=== PATIENT | male | born 1960 | race African-American/Black ===

== ENCOUNTER 2019-01-07 13:40 | Emergency (ER) | payer OTHER ==
--- NOTE | 2019-01-07 14:22 | RAD REPORT ---
EXAM DESCRIPTION: RAD - Shoulder Left 2 View - 01/07/2019 2:16 pm CLINICAL HISTORY: PAIN COMPARISON: No comparisons FINDINGS: Mild AC joint degenerative changes are present. No acute fracture or dislocation seen. Otoniel cifications are seen along the distal aspect of the supraspinatus tendon compatible with calcific ten dinitis. IMPRESSION: Calcific tendinitis.
[2019-01-07] MEDS ORDERED: KETOROLAC 30 MG/ML INJ ONE (15:52)
[2019-01-07] MEDS ORDERED: FAMOTIDINE 20 MG TAB ONE (15:52)
[2019-01-07] MEDS ORDERED: HYDROCODONE/APAP 10/325 TAB ONE (15:52)
[2019-01-07] MEDS ORDERED: ONDANSETRON 4 MG (ODT) TAB ONE (16:56)
[2019-01-07] MEDS ORDERED: MORPHINE 4 MG/ML SYR ONE (16:56)
[2019-01-07] MEDS ORDERED: LORazepam 2 MG/ML VIAL ONE (19:21)
--- NOTE | 2019-01-07 20:13 | RAD REPORT ---
EXAM DESCRIPTION: MRI - Shoulder Left Wo Cont - 01/07/2019 7:59 pm CLINICAL HISTORY: Severe shoulder pain, no precipitating event COMPARISON: Left shoulder films same date. TECHNIQUE: Axial PF fat sat, paracoronal PD FS, T1 weighted and T2 weighted sequences obtained. Para sagittal T2 FS and PD FS also obtained. FINDINGS: Exam has limitation due to motion. Multiple sequences were repeated due to motion. No occult fracture, bone bruise or marrow replacing process. Patient has a mixed red and yellow marro w pattern in the proximal humerus. No AVN. AC joint degenerative changes are present. There is edema in the joint space and mild edema in the acromion. No inferiorly directed bone spur. No biceps tendon injury seen. Small anterior labrum tear is evident. Detail is limited due to motion. Patient has additional underlying labrum degenerative signal. Small amount of fluid is present in the subacromion-subdeltoid bursa. Subscapularis and infraspinatus tendons are intact. Calcifications are present in the supraspinatus t endon along the anterior leading edge. There is heterogeneous signal throughout the tendon. No muscle belly atrophy or tendon retraction. Prominent degenerative/tendinitis changes are present. There is probably a full-thickness tear along the anterior leading edge. No muscle mass or hematoma. No suspicion for septic joint or aggressive bone process. IMPRESSION: Prominent supraspinatus calcific tendinitis changes along with a suspected full-thicknes s tear along the anterior leading edge. Small anterior labrum tear. AC joint degenerative change without inferiorly directed spur. No suspicion for septic joint. No periarticular mass, hematoma or other significant soft tissue findi ng. Overall examination has significant limitation due to the extent of motion degradation.
[2019-01-07] MEDS ORDERED: HYDROCODONE/APAP 5/325 MG TAB ONE (21:00)
--- NOTE | 2019-01-07 21:37 | ER ---
Nurse's Notes [facility] Name: Reji Wallace Age: 58 yrs Sex: Male : 1960 Arrival Date: 01/07/2019 Time: 13:41 Bed 10 Private MD: Anshu Herrera Diagnosis: Other specific joint derangements of left shoulder, not elsewhere classified Presentation: 01/07 13:49 Presenting complaint: Patient states: left shoulder pain since Thursday. Pt had Dr ignacio Eaton call him in some Baclofen but it has not helped with the pain. Transition of care: patient was not received from another setting of care. Onset of symptoms was January 01, 2019. Care prior to arrival: None. 13:49 Method Of Arrival: Ambulatory sv 13:49 Acuity: ARIA 4 sv 16:18 Risk Assessment: Do you want to hurt yourself or someone else? Patient reports no dm5 desire to harm self or others. Initial Sepsis Screen: Does the patient meet any 2 criteria? No. Patient's initial sepsis screen is negative. Does the patient have a suspected source of infection? No. Patient's initial sepsis screen is negative. Triage Assessment: 13:55 General: Appears in no apparent distress. uncomfortable, Behavior is calm, cooperative, sv appropriate for age. Pain: Complains of pain in anterior aspect of left shoulder and posterior aspect of left shoulder Pain currently is 10 out of 10 on a pain scale. Neuro: Level of Consciousness is awake, alert, obeys commands, Oriented to person, place, time, situation, Gait is steady. Respiratory: Respiratory effort is even, unlabored, Respiratory pattern is regular, symmetrical. Historical: - Allergies: 13:52 No Known Drug Allergies; sv - PMHx: 13:52 Diabetes - NIDDM; High Cholesterol; Hypertension; Prostate Cancer; sv - PSHx: 13:52 None; sv - Immunization history:: Adult Immunizations up to date. - Social history:: Smoking status: Patient/guardian denies using tobacco. - Ebola Screening: : Patient negative for fever greater than or equal to 101.5 degrees Fahrenheit, and additional compatible Ebola Virus Disease symptoms Patient denies exposure to infectious person Patient denies travel to an Ebola-affected area in the 21 days before illness onset. Screenin:15 Abuse screen: Denies threats or abuse. Denies injuries from another. Nutritional dm5 screening: No deficits noted. Tuberculosis screening: No symptoms or risk factors identified. Fall Risk None identified. Assessment: 15:15 General: Appears in no apparent distress. uncomfortable. Pain: Complains of pain in dm5 posterior aspect of left shoulder and anterior aspect of left shoulder. Neuro: Level of Consciousness is awake, alert, obeys commands, Oriented to person, place, time. Respiratory: Airway is patent Respiratory effort is even, unlabored, relaxed, Respiratory pattern is regular, symmetrical. Derm: Skin is pink, warm \T\ dry. 20:00 General: Appears in no apparent distress. Behavior is calm, cooperative, Reports pain bb in left shoulder. Neuro: Level of Consciousness is awake, alert, obeys commands, Oriented to person, place, time, situation. Cardiovascular: No deficits noted. Respiratory: Respiratory effort is even, unlabored, Respiratory pattern is regular. GI: No deficits noted. Derm: Skin is dry, Skin is normal, Skin temperature is warm. Musculoskeletal: Circulation, motion, and sensation intact. Reports pain in left shoulder. 20:52 Reassessment: Patient and/or family updated on plan of care and expected duration. Pain bb level reassessed. Patient is alert, oriented x 3, equal unlabored respirations, skin warm/dry/pink. pt states left shoulder is still painful pt medicated see DEC. 21:23 Reassessment: Patient and/or family updated on plan of care and expected duration. Pain bb level reassessed. Patient is alert, oriented x 3, equal unlabored respirations, skin warm/dry/pink. pt states he is ready to go home now. Patient states feeling better. 21:53 Reassessment: Patient and/or family updated on plan of care and expected duration. Pain bb level reassessed. Patient is alert, oriented x 3, equal unlabored respirations, skin warm/dry/pink. pt verbalized understanding of and agrees to plan of care discharge instructions given pt ambulated with steady gait to exit accompanied by family Patient states feeling better. Vital Signs: 13:52 BP 164 / 91; Pulse 106; Resp 20; Temp 98.2; Pulse Ox 97% ; Weight 124.74 kg; Height 5 sv ft. 10 in. (177.80 cm); Pain 10/10; 15:15 BP 160 / 89; Pulse 95; Resp 20; Temp 98; Pulse Ox 100% on R/A; Pain 9/10; dm5 17:50 BP 150 / 90; Pulse 90; Resp 18; Temp 98; Pulse Ox 98% ; dm5 20:21 BP 119 / 74; Pulse 80; Resp 14; Temp 97.9; Pulse Ox 99% on R/A; ag4 21:54 BP 135 / 88; Pulse 96; Resp 14 S; Pulse Ox 98% on R/A; Pain 3/10; bb 13:52 Body Mass Index 39.46 (124.74 kg, 177.80 cm) sv ED Course: 13:41 Patient arrived in ED. as 13:41 Anshu Herrera MD is Private Physician. as 13:44 Patient's name was called from ER lobby. No response. sv 13:52 Triage completed. sv 14:12 Shoulder Left (2 View) XRAY In Process Unspecified. EDMS 14:51 Jorden Mendoza MD is Attending Physician. kdr 15:01 Michelle Paiz, RN is Primary Nurse. dm5 15:15 Patient has correct armband on for positive identification. dm5 15:15 No provider procedures requiring assistance completed. Patient did not have IV access dm5 during this emergency room visit. 16:18 Arm band placed on. dm5 19:06 Attending Physician role handed off by Jorden Mendoza MD gs 19:06 Mohamud Horan MD is Attending Physician. gs 19:10 Inserted saline lock: 24 gauge in right forearm, using aseptic technique. ,using tw2 aseptic technique. by Tech. Keshia 19:28 Shoulder Left Wo Cont In Process Unspecified. EDMS 21:36 Chance Caballero MD is Referral Physician. gs Administered Medications: 15:45 Drug: TORadol 60 mg Route: IM; Site: right gluteus; dm5 16:15 Follow up: Response: No adverse reaction; Pain is decreased dm5 15:45 Drug: [place] 10 mg-325 mg 1 tabs Route: PO; dm5 16:15 Follow up: Response: No adverse reaction; Pain is decreased dm5 15:45 Drug: Pepcid 20 mg Route: PO; dm5 16:00 Follow up: Response: No adverse reaction; No change in condition dm5 16:49 Drug: morphine 4 mg Route: IM; Site: right deltoid; dm5 17:15 Follow up: Response: No adverse reaction; Pain is decreased dm5 16:50 Drug: Zofran 4 mg Route: PO; dm5 19:47 Follow up: Response: No adverse reaction; No change in condition dm5 19:14 Drug: Ativan 1 mg Route: IVP; Site: right forearm; tw2 20:11 Follow up: Response: No adverse reaction; Marked relief of symptoms bb 20:50 Drug: [place] 5 mg-325 mg 1 tabs Route: PO; bb 21:23 Follow up: Response: Pain is decreased bb Outcome: 21:37 Discharge ordered by MD. gs 21:54 Discharged to home ambulatory, with family. bb 21:54 Condition: stable 21:54 Discharge instructions given to patient, Instructed on discharge instructions, follow up and referral plans. no driving heavy equipment, medication usage, Demonstrated understanding of instructions, follow-up care, medications, Prescriptions given X 2. 21:55 Patient left the ED. bb Signatures: Dispatcher [employer] EDMS Michelle Paiz RN RN dm5 Sheafli Kemp RN RN sv Rittger, Kevin, MD MD kdr Martinez, Amelia as Ballard, Brenda, RN RN bb Wise, Tara, RN RN tw2 Mohamud Horan MD MD John Swann ag4 Corrections: (The following items were deleted from the chart) 13:49 13:44 Patient left the ED. [facility]
--- NOTE | 2019-01-07 21:37 | EDPHYS ---
Physician Documentation [facility] Name: Reji Wallace Age: 58 yrs Sex: Male : 1960 Arrival Date: 01/07/2019 Time: 13:41 Bed 10 Private MD: Anshu Herrera ED Physician Mohamud Horan HPI: 01/07 21:33 This 58 yrs old Black Male presents to ER via Ambulatory with complaints of Shoulder gs Pain. 21:34 The patient or guardian complains of pain, that is acute. left shoulder. Onset: The gs symptoms/episode began/occurred 1 week(s) ago, and became worse and became persistent. Modifying factors: The symptoms are aggravated by lifting weight, movement, rotation of arm. Associated signs and symptoms: Pertinent negatives: shortness of breath. Severity of symptoms: At their worst the symptoms were severe, in the emergency department the symptoms are unchanged. The patient has not experienced similar symptoms in the past. The patient has not recently seen a physician. Historical: - Allergies: 13:52 No Known Drug Allergies; sv - PMHx: 13:52 Diabetes - NIDDM; High Cholesterol; Hypertension; Prostate Cancer; sv - PSHx: 13:52 None; sv - Immunization history:: Adult Immunizations up to date. - Social history:: Smoking status: Patient/guardian denies using tobacco. - Ebola Screening: : Patient negative for fever greater than or equal to 101.5 degrees Fahrenheit, and additional compatible Ebola Virus Disease symptoms Patient denies exposure to infectious person Patient denies travel to an Ebola-affected area in the 21 days before illness onset. ROS: 21:34 All other systems are negative. gs Exam: 21:34 Chest/axilla: Normal chest wall appearance and motion. Nontender with no deformity. gs No lesions are appreciated. Cardiovascular: Regular rate and rhythm with a normal S1 and S2. No gallops, murmurs, or rubs. Normal PMI, no JVD. No pulse deficits. Respiratory: Lungs have equal breath sounds bilaterally, clear to auscultation and percussion. No rales, rhonchi or wheezes noted. No increased work of breathing, no retractions or nasal flaring. Abdomen/GI: Soft, non-tender, with normal bowel sounds. No distension or tympany. No guarding or rebound. No evidence of tenderness throughout. Back: No spinal tenderness. No costovertebral tenderness. Full range of motion. Skin: Warm, dry with normal turgor. Normal color with no rashes, no lesions, and no evidence of cellulitis. Neuro: Awake and alert, GCS 15, oriented to person, place, time, and situation. Cranial nerves II-XII grossly intact. Motor strength 5/5 in all extremities. Sensory grossly intact. Cerebellar exam normal. Normal gait. 21:34 Constitutional: The patient appears alert, awake, uncomfortable. 21:34 Musculoskeletal/extremity: Pulses: are normal with no appreciated deficits, Sensation intact. Joints: the left shoulder displays pain at rest, painful range of motion, swelling, tenderness. Vital Signs: 13:52 BP 164 / 91; Pulse 106; Resp 20; Temp 98.2; Pulse Ox 97% ; Weight 124.74 kg; Height 5 sv ft. 10 in. (177.80 cm); Pain 10/10; 15:15 BP 160 / 89; Pulse 95; Resp 20; Temp 98; Pulse Ox 100% on R/A; Pain 9/10; dm5 17:50 BP 150 / 90; Pulse 90; Resp 18; Temp 98; Pulse Ox 98% ; dm5 20:21 BP 119 / 74; Pulse 80; Resp 14; Temp 97.9; Pulse Ox 99% on R/A; ag4 21:54 BP 135 / 88; Pulse 96; Resp 14 S; Pulse Ox 98% on R/A; Pain 3/10; bb 13:52 Body Mass Index 39.46 (124.74 kg, 177.80 cm) sv MDM: 19:06 Patient medically screened. gs 21:34 Differential diagnosis: humeral head fracture, DJD, tendonitis. Data reviewed: vital gs signs, nurses notes. Data reviewed: radiologic studies. Counseling: I had a detailed discussion with the patient and/or guardian regarding: the historical points, exam findings, and any diagnostic results supporting the discharge/admit diagnosis, the need for outpatient follow up, a orthopedic surgeon. Response to treatment: the patient's symptoms have markedly improved after treatment, and as a result, I will discharge patient. 01/07 13:53 Order name: Shoulder Left (2 View) XRAY; Complete Time: 15:14 sv 01/07 16:39 Order name: Shoulder Left Wo Cont; Complete Time: 20:43 EDMS 01/07 21:53 Order name: Jason; Complete Time: 21:53 bb Administered Medications: 15:45 Drug: TORadol 60 mg Route: IM; Site: right gluteus; dm5 16:15 Follow up: Response: No adverse reaction; Pain is decreased dm5 15:45 Drug: [place] 10 mg-325 mg 1 tabs Route: PO; dm5 16:15 Follow up: Response: No adverse reaction; Pain is decreased dm5 15:45 Drug: Pepcid 20 mg Route: PO; dm5 16:00 Follow up: Response: No adverse reaction; No change in condition dm5 16:49 Drug: morphine 4 mg Route: IM; Site: right deltoid; dm5 17:15 Follow up: Response: No adverse reaction; Pain is decreased dm5 16:50 Drug: Zofran 4 mg Route: PO; dm5 19:47 Follow up: Response: No adverse reaction; No change in condition dm5 19:14 Drug: Ativan 1 mg Route: IVP; Site: right forearm; tw2 20:11 Follow up: Response: No adverse reaction; Marked relief of symptoms bb 20:50 Drug: [place] 5 mg-325 mg 1 tabs Route: PO; bb 21:23 Follow up: Response: Pain is decreased bb Disposition: 01/07/19 21:37 Discharged to Home. Impression: Other specific joint derangements of left shoulder, not elsewhere classified. - Condition is Stable. - Discharge Instructions: Surgery for Shoulder Impingement Syndrome, Care After. - Prescriptions for Naprosyn 500 mg Oral Tablet - take 1 tablet by ORAL route 2 times per day As needed take with food; 30 tablet. Tylenol- Codeine #4 300-60 mg Oral Tablet - take 1 tablet by ORAL route every 6 hours As needed; 12 tablet. - Medication Reconciliation Form, Thank You Letter, Antibiotic Education, Prescription Opioid Use form. - Follow up: Chance Caballero MD; When: 2 - 3 days; Reason: Re-evaluation by your physician. Signatures: Dispatcher [facility] Michelle Paiz RN RN dm5 Shefali Kemp RN RN sv Jorden Mendoza MD MD kdr Martina Steiner RN RN bb Latricia Nguyen RN RN tw2 Mohamud Horan MD MD Corrections: (The following items were deleted from the chart) 15:01 13:44 01/07/2019 13:44 Patient left the facility Before Triage. Reason stated they are dm5 leaving due to other. sv 21:55 21:37 01/07/2019 21:37 Discharged to Home. Impression: Other specific joint bb derangements of left shoulder, not elsewhere classified. Condition is Stable. Forms are Medication Reconciliation Form, Thank You Letter, Antibiotic Education, Prescription Opioid Use. Follow up: Dr. Chance Caballero; When: 2 - 3 days; Reason: Re-evaluation by your physician. gs
[2019-01-07 22:06] VITALS: TEMP 97.9
[2019-01-07 22:07] VITALS: BP 135/88; O2SAT 98
== END 2019-01-07 21:55 | disposition home or self-care (01) ==
LOC: ER 13:40
DX: M24.812 Other specific joint derangements of left shoulder, not elsewhere classified (principal); I10 Essential (primary) hypertension; Z85.46 Personal history of malignant neoplasm of prostate
CPT/HCPCS: 96372; 96374; 99284

== ENCOUNTER 2019-03-23 09:21 | Emergency (ER) | payer OTHER ==
[2019-03-23] MEDS ORDERED: NA CHLORIDE 0.9% 1,000 ML ONE (09:50)
[2019-03-23] MEDS ORDERED: ONDANSETRON 4 MG/2 ML VIAL ONE (09:50)
[2019-03-23 10:05] LABS: Absolute Lymphocytes (CBC) 0.4 K/uL (0.7-4.9); Absolute Monocytes 0.9 K/uL (0.1-1.3); Absolute Neutrophil 10.3 K/uL (1.8-8.0); Basophils % 0.2 % (0-1.3); Eosinophils % 0.1 % (0-4.4); Hematocrit 33.7 % (39.6-49.0); Lymphocytes % 3.7 % (15.3-44.8); MPV 7.3 fL (7.6-11.3); Monocytes % 7.4 % (3.3-12.3); RBC Red Blood Cell Count 4.33 M/uL (4.33-5.43)
[2019-03-23 10:42] LABS: Albumin 3.1 g/dL (3.4-5.0); Bilirubin Direct 0.2 mg/dL (0-0.2); Bilirubin Total 0.8 mg/dL (0.2-1.0); Potassium 3.5 mmol/L (3.5-5.1); Protein, Total 7.8 g/dL (6.4-8.2)
[2019-03-23] MEDS ORDERED: IBUPROFEN 400 MG TAB ONE (10:52)
[2019-03-23 11:03] LABS: Anisocytosis 1+; Blood Morphology Comment NOTED (NOT SEEN); Platelet Estimate ADEQ; Urine White Blood Cell Casts OK
--- NOTE | 2019-03-23 11:23 | RAD REPORT ---
EXAM DESCRIPTION: CTAbdomen Pelvis W Contrast - 03/23/2019 11:10 am CLINICAL HISTORY: Abdominal pain. iv contrast only;Abd pain COMPARISON: CT ABD PELVIS W CONTRAST dated 10/04/2015; CT ABD PELVIS W CONTRAST dated 05/16/2013 TECHNIQUE: Biphasic CT imaging of the abdomen and pelvis was performed with 100 ml non-ionic IV cont rast. All CT scans are performed using dose optimization technique as appropriate and may include automated exposure control or mA/KV adjustment according to patient size. FINDINGS: The lung bases are clear. The liver, spleen, pancreas, adrenal glands and kidneys are within normal limits. 17 mm medial left r enal cyst. No bowel obstruction, free air, free fluid or abscess. The appendix is normal. No evidence of signi ficant lymphadenopathy. Moderate lumbar degenerative changes. IMPRESSION: No acute intra-abdominal or pelvic finding.
--- NOTE | 2019-03-23 12:23 | ER ---
Nurse's Notes [facility] Name: Reji Wallace Age: 58 yrs Sex: Male : 1960 Arrival Date: 03/23/2019 Time: 09:24 Bed 16 Private MD: Anshu Herrera Diagnosis: Nausea and vomiting;Diarrhea, unspecified Presentation: 03/23 09:28 Presenting complaint: Patient states: Sent by Dr. Herrera for possible dehydration. Pt ss c/o N/V/D and fever that began yesterday. Denies abd pain. Transition of care: patient was not received from another setting of care. Onset of symptoms was March 22, 2019. Risk Assessment: Do you want to hurt yourself or someone else? Patient reports no desire to harm self or others. Initial Sepsis Screen: Does the patient meet any 2 criteria? HR > 90 bpm. Does the patient have a suspected source of infection? No. Patient's initial sepsis screen is negative. Care prior to arrival: None. 09:28 Method Of Arrival: Ambulatory ss 09:28 Acuity: ARIA 3 ss Historical: - Allergies: :34 No Known Drug Allergies; tw2 - Home Meds: :34 aspirin 81 mg Oral chew 1 tab once daily [Active]; Crestor 10 mg Oral tab 1 tab once tw2 daily [Active]; Decara Oral [Active]; Levemir 100 unit/mL subcutaneous soln 80 unit twice a day [Active]; Losartan potassium 50 mg 1 tab daily [Active]; metformin 500 mg Oral Tb24 1 tab twice a day [Active]; Viagra 100 mg Oral tab 1 tab once daily [Active]; Victoza 3-Julio 0.6 mg/0.1 mL (18 mg/3 mL) subcutaneous pnij 0.4 mL once daily [Active]; - PMHx: 09:34 Prostate Cancer; Hypertension; High Cholesterol; Diabetes - NIDDM; tw2 - PSHx: :34 None; tw2 - Immunization history:: Adult Immunizations. - Social history:: Smoking status: . - Ebola Screening: : Patient denies travel to an Ebola-affected area in the 21 days before illness onset. Screenin:33 Abuse screen: Denies threats or abuse. Nutritional screening: No deficits noted. tw2 Tuberculosis screening: No symptoms or risk factors identified. Fall Risk None identified. Assessment: 09:29 General: Appears in no apparent distress. obese, well groomed, Behavior is calm, tw2 cooperative, appropriate for age. Pain: Denies pain. Neuro: Level of Consciousness is awake, alert, obeys commands, Oriented to person, place, time, situation. Cardiovascular: Heart tones S1 S2 Patient's skin is warm and dry. Respiratory: Airway is patent Respiratory effort is even, unlabored, Respiratory pattern is regular, symmetrical, Breath sounds are clear bilaterally. GI: Abdomen is round non-distended, Bowel sounds present X 4 quads. Reports diarrhea, nausea, vomiting. : No signs and/or symptoms were reported regarding the genitourinary system. EENT: No signs and/or symptoms were reported regarding the EENT system. Derm: No signs and/or symptoms reported regarding the dermatologic system. Musculoskeletal: Range of motion: intact in all extremities. 10:15 Reassessment: Patient appears in no apparent distress at this time. No changes from tw2 previously documented assessment. Patient and/or family updated on plan of care and expected duration. Pain level reassessed. Patient is alert, oriented x 3, equal unlabored respirations, skin warm/dry/pink. 11:30 Reassessment: Patient appears in no apparent distress at this time. No changes from tw2 previously documented assessment. Patient and/or family updated on plan of care and expected duration. Pain level reassessed. Patient is alert, oriented x 3, equal unlabored respirations, skin warm/dry/pink. 12:29 Reassessment: Patient appears in no apparent distress at this time. No changes from tw2 previously documented assessment. Patient and/or family updated on plan of care and expected duration. Pain level reassessed. Patient is alert, oriented x 3, equal unlabored respirations, skin warm/dry/pink. Vital Signs: 09:28 BP 126 / 72; Pulse 124; Resp 19; Temp 99.9(O); Pulse Ox 95% on R/A; Weight 124.74 kg; ss Height 5 ft. 10 in. (177.80 cm); Pain 0/10; 10:15 BP 136 / 79; Pulse 121; Resp 17; Pulse Ox 95% on R/A; tw2 10:37 Temp 100.4(O); tw2 11:52 BP 118 / 75; Pulse 121; Resp 20; Temp 98.1(TE); Pulse Ox 95% on R/A; mh5 12:30 BP 103 / 57; Pulse 99; Resp 17; Pulse Ox 95% on R/A; tw2 09:28 Body Mass Index 39.46 (124.74 kg, 177.80 cm) ED Course: 09:24 Patient arrived in ED. mr 09:24 Anshu Herrera MD is Private Physician. mr 09:29 Mary Snowden FNP-C [facility]. kb 09:29 Syed Simpson MD is Attending Physician. kb 09:32 Latricia Nguyen, FE is Primary Nurse. tw2 09:33 Arm band placed on. tw2 09:33 Bed in low position. Call light in reach. Adult w/ patient. Pulse ox on. NIBP on. tw2 09:37 Triage completed. ss 09:45 Missed attempt(s): 22 gauge in left forearm. Bleeding controlled, band aid applied, tw2 catheter tip intact. Missed attempt(s): 22 gauge in left forearm. Bleeding controlled, band aid applied, catheter tip intact. 09:50 Inserted saline lock: 20 gauge in right antecubital area, using aseptic technique. tw2 Blood collected. 11:10 CT Abd/Pelvis - W/Contrast In Process Unspecified. EDMS 12:23 Anshu Herrera MD is Referral Physician. kb 12:30 No provider procedures requiring assistance completed. IV discontinued, intact, tw2 bleeding controlled, No redness/swelling at site. Pressure dressing applied. Administered Medications: 09:50 Drug: Zofran 4 mg Route: IVP; Site: right antecubital; tw2 11:00 Follow up: Response: No adverse reaction tw2 10:00 Drug: NS 0.9% 1000 ml Route: IV; Rate: 1000 ml; Site: right antecubital; tw2 10:50 Follow up: Response: No adverse reaction; IV Status: Completed infusion; IV Intake: tw2 1000ml 10:44 Drug: Motrin 800 mg Route: PO; tw2 11:00 Follow up: Response: No adverse reaction tw2 Intake: 10:50 IV: 1000ml; Total: 1000ml. tw2 Outcome: 12:23 Discharge ordered by . kb 12:31 Discharged to home ambulatory, with significant other. tw2 12:31 Condition: stable 12:31 Discharge instructions given to patient, significant other, Instructed on discharge instructions, follow up and referral plans. medication usage, Demonstrated understanding of instructions, follow-up care, medications, Prescriptions given X 1. 12:31 Patient left the ED. tw2 Signatures: Dispatcher [employer] EDAZ Mary Snowden, [employer]ON[employer]-Rachel Bere Bejarano Lor Goldman RN RN Latricia Nguyen RN RN 2 Judy Soriano [facility]
--- NOTE | 2019-03-23 12:23 | EDPHYS ---
Physician Documentation [facility] Name: Reji Wallace Age: 58 yrs Sex: Male : 1960 Arrival Date: 03/23/2019 Time: 09:24 Bed 16 Private MD: Anshu Herrera ED Physician Syed Simpson HPI: 03/23 11:28 This 58 yrs old Black Male presents to ER via Ambulatory with complaints of kb Vomiting/Diarrhea, Fever. 11:28 The patient presents to the emergency department with nausea, vomiting, diarrhea. kb Onset: The symptoms/episode began/occurred yesterday. Possible causes: unknown. The symptoms are aggravated by nothing. The symptoms are alleviated by nothing. Associated signs and symptoms: Pertinent positives: diarrhea, nausea, vomiting, Pertinent negatives: abdominal pain, anorexia, belching, constipation, dysuria, fever, flatulence, GI bleeding, hematuria. Severity of symptoms: At their worst the symptoms were moderate in the emergency department the symptoms are unchanged. The patient has not experienced similar symptoms in the past. The patient has been recently seen by a physician: the patient's primary care provider, earlier today, with similar presenting complaints, and was sent to the [facility] Emergency Department for further evaluation. Historical: - Allergies: 09:34 No Known Drug Allergies; tw2 - Home Meds: 09:34 aspirin 81 mg Oral chew 1 tab once daily [Active]; Crestor 10 mg Oral tab 1 tab once tw2 daily [Active]; Decara Oral [Active]; Levemir 100 unit/mL subcutaneous soln 80 unit twice a day [Active]; Losartan potassium 50 mg 1 tab daily [Active]; metformin 500 mg Oral Tb24 1 tab twice a day [Active]; Viagra 100 mg Oral tab 1 tab once daily [Active]; Victoza 3-Julio 0.6 mg/0.1 mL (18 mg/3 mL) subcutaneous pnij 0.4 mL once daily [Active]; - PMHx: 09:34 Prostate Cancer; Hypertension; High Cholesterol; Diabetes - NIDDM; tw2 - PSHx: 09:34 None; tw2 - Immunization history:: Adult Immunizations. - Social history:: Smoking status: . - Ebola Screening: : Patient denies travel to an Ebola-affected area in the 21 days before illness onset. ROS: 11:28 ENT: Negative for injury, pain, and discharge, Neck: Negative for injury, pain, and kb swelling, Cardiovascular: Negative for chest pain, palpitations, and edema, Respiratory: Negative for shortness of breath, cough, wheezing, and pleuritic chest pain, Back: Negative for injury and pain, : Negative for injury, bleeding, discharge, and swelling, MS/Extremity: Negative for injury and deformity, Skin: Negative for injury, rash, and discoloration, Neuro: Negative for headache, weakness, numbness, tingling, and seizure. 11:28 Constitutional: Positive for chills, fatigue, fever, malaise, Negative for body aches, poor PO intake, weight loss. 11:28 Abdomen/GI: Positive for nausea, vomiting, and diarrhea, Negative for abdominal pain. Exam: 11:28 Constitutional: This is a well developed, well nourished patient who is awake, alert, kb and in no acute distress. Head/Face: Normocephalic, atraumatic. ENT: Nares patent. No nasal discharge, no septal abnormalities noted. Tympanic membranes are normal and external auditory canals are clear. Oropharynx with no redness, swelling, or masses, exudates, or evidence of obstruction, uvula midline. Mucous membranes moist. Neck: Trachea midline, no thyromegaly or masses palpated, and no cervical lymphadenopathy. Supple, full range of motion without nuchal rigidity, or vertebral point tenderness. No Meningismus. Chest/axilla: Normal chest wall appearance and motion. Nontender with no deformity. No lesions are appreciated. Cardiovascular: Regular rate and rhythm with a normal S1 and S2. No gallops, murmurs, or rubs. Normal PMI, no JVD. No pulse deficits. Respiratory: Lungs have equal breath sounds bilaterally, clear to auscultation and percussion. No rales, rhonchi or wheezes noted. No increased work of breathing, no retractions or nasal flaring. Abdomen/GI: Soft, non-tender, with normal bowel sounds. No distension or tympany. No guarding or rebound. No evidence of tenderness throughout. Back: No spinal tenderness. No costovertebral tenderness. Full range of motion. Skin: Warm, dry with normal turgor. Normal color with no rashes, no lesions, and no evidence of cellulitis. MS/ Extremity: Pulses equal, no cyanosis. Neurovascular intact. Full, normal range of motion. Neuro: Awake and alert, GCS 15, oriented to person, place, time, and situation. Cranial nerves II-XII grossly intact. Motor strength 5/5 in all extremities. Sensory grossly intact. Cerebellar exam normal. Normal gait. Vital Signs: 09:28 BP 126 / 72; Pulse 124; Resp 19; Temp 99.9(O); Pulse Ox 95% on R/A; Weight 124.74 kg; ss Height 5 ft. 10 in. (177.80 cm); Pain 0/10; 10:15 BP 136 / 79; Pulse 121; Resp 17; Pulse Ox 95% on R/A; tw2 10:37 Temp 100.4(O); tw2 11:52 BP 118 / 75; Pulse 121; Resp 20; Temp 98.1(TE); Pulse Ox 95% on R/A; mh5 12:30 BP 103 / 57; Pulse 99; Resp 17; Pulse Ox 95% on R/A; tw2 09:28 Body Mass Index 39.46 (124.74 kg, 177.80 cm) ss MDM: 09:29 Patient medically screened. kb 11:29 Data reviewed: vital signs, nurses notes. Data interpreted: Pulse oximetry: on room air kb is 95 %. Interpretation: acceptable. 11:29 Counseling: I had a detailed discussion with the patient and/or guardian regarding: the kb historical points, exam findings, and any diagnostic results supporting the discharge/admit diagnosis, lab results, radiology results, the need for outpatient follow up, a family practitioner, to return to the emergency department if symptoms worsen or persist or if there are any questions or concerns that arise at home. 12:21 ED course: Pt urinated in CT and cannot give a sample at this time. States he does not kb want to wait until he can go, would rather go home now. . 03/23 09:34 Order name: Basic Metabolic Panel; Complete Time: 10:47 kb 03/23 09:34 Order name: CBC with Diff; Complete Time: 11:04 kb 03/23 09:34 Order name: Hepatic Function; Complete Time: 10:47 kb 03/23 09:34 Order name: Lipase; Complete Time: 10:47 kb 03/23 09:34 Order name: Flu; Complete Time: 10:22 kb 03/23 10:07 Order name: CBC Smear Scan; Complete Time: 11:04 EDCA 03/23 09:34 Order name: IV Saline Lock; Complete Time: 10:00 kb 03/23 09:34 Order name: Labs collected and sent; Complete Time: 10:00 kb 03/23 10:49 Order name: CT Abd/Pelvis - W/Contrast; Complete Time: 11:23 kb Administered Medications: 09:50 Drug: Zofran 4 mg Route: IVP; Site: right antecubital; tw2 11:00 Follow up: Response: No adverse reaction tw2 10:00 Drug: NS 0.9% 1000 ml Route: IV; Rate: 1000 ml; Site: right antecubital; tw2 10:50 Follow up: Response: No adverse reaction; IV Status: Completed infusion; IV Intake: tw2 1000ml 10:44 Drug: Motrin 800 mg Route: PO; tw2 11:00 Follow up: Response: No adverse reaction tw2 Disposition: 16:05 Co-signature as Attending Physician, Syed Simpson MD. rn Disposition: 03/23/19 12:23 Discharged to Home. Impression: Nausea and vomiting, Diarrhea, unspecified. - Condition is Stable. - Discharge Instructions: Food Choices to Help Relieve Diarrhea, Adult, Nausea and Vomiting, Adult, [id number], Diarrhea, Adult, [id number]. - Prescriptions for Zofran 4 mg Oral Tablet - take 1 tablet by ORAL route every 6 hours As needed; 20 tablet. - Medication Reconciliation Form, Thank You Letter, Antibiotic Education, Prescription Opioid Use, Work release form, Family Work Release form. - Follow up: Emergency Department; When: As needed; Reason: Worsening of condition. Follow up: Anshu Herrera MD; When: 2 - 3 days; Reason: Recheck today's complaints, Continuance of care, Re-evaluation by your physician. Signatures: Dispatcher [employer] [facility] Mary Snowden, ALLISON MCKEONP-Syed Agustin MD MD rn Wise, Tara, RN RN tw2 Corrections: (The following items were deleted from the chart) 12:31 12:23 03/23/2019 12:23 Discharged to Home. Impression: Nausea and vomiting; Diarrhea, tw2 unspecified. Condition is Stable. Forms are Medication Reconciliation Form, Thank You Letter, Antibiotic Education, Prescription Opioid Use. Follow up: Emergency Department; When: As needed; Reason: Worsening of condition. Follow up: Anshu Herrera; When: 2 - 3 days; Reason: Recheck today's complaints, Continuance of care, Re-evaluation by your physician. kb
[2019-03-23 16:06] VITALS: O2SAT 95
[2019-03-23 16:07] VITALS: TEMP 98.1
[2019-03-23 16:08] VITALS: BP 103/57
== END 2019-03-23 12:31 | disposition home or self-care (01) ==
LOC: ER 09:21
DX: R19.7 Diarrhea, unspecified (principal); I10 Essential (primary) hypertension; E11.9 Type 2 diabetes mellitus without complications; E78.00 Pure hypercholesterolemia, unspecified; Z79.4 Long term (current) use of insulin; Z79.82 Long term (current) use of aspirin; Z85.46 Personal history of malignant neoplasm of prostate
CPT/HCPCS: 36415; 74177; 80048; 80076; 83690; 85025; 87804; 96361; 96374; 99284; J2405; J7030; Q9967

== ENCOUNTER 2020-04-22 11:11 | Observation (INO) | payer OTHER ==
[2020-04-22 12:04] LABS: Absolute Lymphocytes (CBC) 1.7 K/uL (0.7-4.9); Basophils % 0.6 % (0-1.3); Hematocrit 40.2 % (39.6-49.0); Lymphocytes % 17.5 % (15.3-44.8); RBC Red Blood Cell Count 4.54 M/uL (4.33-5.43)
[2020-04-22 12:05] LABS: Protime INR 1.36
[2020-04-22] MEDS ORDERED: ASPIRIN 81 MG CHEWABLE TABLET ONE (12:07)
[2020-04-22] MEDS ORDERED: MORPHINE 4 MG/ML SYR ONE (12:08)
[2020-04-22] MEDS ORDERED: ONDANSETRON 4 MG/2 ML VIAL ONE (12:09)
[2020-04-22] MEDS ORDERED: NITROGLYCERIN 0.4 MG/TAB SL ONE ×2 (12:09→14:27)
[2020-04-22 12:22] LABS: ALT/SGPT 18 U/L (12-78); AST/SGOT 12 U/L (15-37); Alkaline Phosphatase 88 U/L (45-117); BUN Blood Urea Nitrogen 10 mg/dL (7-18); Bicarbonate 26 mmol/L (21-32); Bilirubin Direct 0.1 mg/dL (0-0.2); Bilirubin Total 0.3 mg/dL (0.2-1.0); Glucose Level 168 mg/dL (74-106); Magnesium 1.8 mg/dL (1.8-2.4); NT PRO-BNP 15 pg/mL (<125); Potassium 3.5 mmol/L (3.5-5.1); Protein, Total 7.4 g/dL (6.4-8.2); Sodium Level 141 mmol/L (136-145); Troponin (Emerg Dept Use Only) < 0.02 ng/mL (0.0-0.045)
--- NOTE | 2020-04-22 12:53 | ER ---
Nurse's Notes [facility] Name: Reji Wallace Age: 60 yrs Sex: Male : 1960 Arrival Date: 04/22/2020 Time: 11:12 Bed 7 Private MD: Anshu Herrera Diagnosis: Chest pain, unspecified Presentation: 04/22 11:26 Chief complaint: Patient states: Intermittent L sided chest pain that began Thursday, ph became worse last night, also reports SOB, dizziness and nausea, denies cough or fever. Coronavirus screen: Patient denies a cough. Patient reports shortness of breath or difficulty breathing. Patient denies measured and/or subjective temperature greater than 100.4F prior to today's visit. Patient denies travel on a cruise ship or to a country the [facility] currently lists as an affected area. Patient denies contact with known and/or suspected case of COVID-19. Ebola Screen: No symptoms or risks identified at this time. Initial Sepsis Screen: Does the patient meet any 2 criteria? No. Patient's initial sepsis screen is negative. Does the patient have a suspected source of infection? No. Patient's initial sepsis screen is negative. Risk Assessment: Do you want to hurt yourself or someone else? Patient reports no desire to harm self or others. Onset of symptoms was April 20, 2020. 11:26 Method Of Arrival: Wheelchair ph 11:26 Acuity: ARIA 3 ph Historical: - Allergies: 11:33 No Known Drug Allergies; ph - Home Meds: 11:33 aspirin 81 mg Oral chew 1 tab once daily [Active]; Xultophy 50 units twice a day for ph Diabetes [Active]; metoprolol succinate 200 mg oral Tb24 1 tab once daily [Active]; Losartan potassium 100 mg 1 tab daily [Active]; metformin 1,000 mg oral tab 1 tab 2 times per day [Active]; Crestor 10 mg Oral tab 1 tab once daily [Active]; cholecalciferol (vitamin D3) oral oral [Active]; Victoza 3-Julio 0.6 mg/0.1 mL (18 mg/3 mL) subcutaneous pnij 0.4 mL once daily [Active]; - PMHx: 11:34 Diabetes - NIDDM; High Cholesterol; Hypertension; Prostate Cancer; ph - PSHx: 11:34 finger sx; prostate; ph - Immunization history:: Adult Immunizations unknown. - Social history:: Smoking status: Patient denies any tobacco usage or history of. Patient/guardian denies using alcohol, street drugs, The patient lives with spouse. - Family history:: not pertinent. Screenin:38 Abuse screen: Denies threats or abuse. Denies injuries from another. Nutritional ph screening: No deficits noted. Tuberculosis screening: No symptoms or risk factors identified. Fall Risk None identified. Assessment: 11:36 General: Appears in no apparent distress. comfortable, well groomed, Behavior is calm, ph cooperative, appropriate for age, Denies fever, feeling ill. Pain: Complains of pain in anterior aspect of left upper chest Pain does not radiate. Pain currently is 7 out of 10 on a pain scale. Quality of pain is described as burning, squeezing, Pain began 2-3 days ago. Is intermittent. Neuro: Level of Consciousness is awake, alert, obeys commands, Oriented to person, place, time, situation, Reports dizziness, Denies weakness blurred vision headache. Cardiovascular: Reports chest pain, lightheadedness, nausea, shortness of breath, Denies palpitations, syncope, vomiting, Capillary refill < 3 seconds in bilateral fingers Patient's skin is warm and dry. Rhythm is sinus tachycardia Chest pain quality is burning, squeezing, is located in left anterior chest wall began 3 days ago. Respiratory: Airway is patent Respiratory effort is even, unlabored, Respiratory pattern is regular, symmetrical. GI: No signs and/or symptoms were reported involving the gastrointestinal system. Derm: Skin is intact, is healthy with good turgor, Skin is pink, warm \T\ dry. Musculoskeletal: Circulation, motion, and sensation intact. Range of motion: intact in all extremities. 12:30 Reassessment: Patient appears in no apparent distress at this time. Patient and/or ph family updated on plan of care and expected duration. Pain level reassessed. Patient is alert, oriented x 3, equal unlabored respirations, skin warm/dry/pink. 13:25 Reassessment: Patient appears in no apparent distress at this time. Patient and/or ph family updated on plan of care and expected duration. Pain level reassessed. Patient is alert, oriented x 3, equal unlabored respirations, skin warm/dry/pink. Vital Signs: 11:26 BP 134 / 91; Pulse 102; Resp 18; Temp 97.4; Pulse Ox 98% on R/A; Weight 124.74 kg; ph Height 5 ft. 10 in. (177.80 cm); Pain 7/10; 12:15 BP 111 / 85; Pulse 91; Resp 18; Pulse Ox 98% ; sv 13:26 BP 117 / 87; Pulse 90; Resp 18; Temp 97.8; Pulse Ox 99% on R/A; ph 11:26 Body Mass Index 39.46 (124.74 kg, 177.80 cm) ph ED Course: 11:12 Patient arrived in ED. as 11:13 Anshu Herrera MD is Private Physician. as 11:13 [facility]C [facility]. snw 11:13 Lisbeth Shannon MD is Attending Physician. snw 11:26 Rosie Rosales, FE is Primary Nurse. ph 11:29 Triage completed. ph 11:31 Lisbeth Shannon MD is Attending Physician. ma2 11:35 Inserted saline lock: 20 gauge in right forearm, using aseptic technique. ph 11:36 Arm band placed on Patient placed in an exam room, on a stretcher, on conveyor monitor, ph on pulse oximetry. 11:38 Patient has correct armband on for positive identification. Placed in gown. Bed in low ph position. Call light in reach. Side rails up X2. cardiac monitor technician on. Pulse ox on. NIBP on. Door closed. Noise minimized. Warm blanket given. 11:38 Patient maintains SpO2 saturation greater than 95% on room air. ph 11:57 XRAY Chest (1 view) In Process Unspecified. EDMS 12:51 Anshu Herrera MD is Hospitalizing Provider. ma2 12:52 Prince Tucker MD is Hospitalizing Provider. ma2 13:25 No provider procedures requiring assistance completed. Patient admitted, IV remains in ph place. Administered Medications: 12:10 Drug: Aspirin Chewable Tablet 162 mg Route: PO; ph 12:30 Follow up: Response: No adverse reaction ph 12:10 Drug: Zofran (Ondansetron) 4 mg Route: IVP; Site: right forearm; ph 12:30 Follow up: Response: No adverse reaction; Nausea is decreased ph 12:12 Drug: morphine 4 mg Route: IVP; Site: right forearm; ph 12:30 Follow up: Response: No adverse reaction; Pain is decreased ph 18:39 Not Given (Hemodynamic Parameters): Nitroglycerin 0.4 mg Sublingual once; every five ph minute if needed x3 Outcome: 12:52 Decision to Hospitalize by Provider. ma2 13:28 Admitted to Tele accompanied by tech, family with patient, via wheelchair, room 219, on ph monitor, with chart. 13:28 Condition: stable 13:28 Instructed on the need for admit. 14:31 Patient left the ED. ph Signatures: Dispatcher [employer] Shefali Purdy RN RN sv Therrien, Shelly, BERNABE-C HOG SCRAPER-Gina Buchanan Patricia, RN RN ph Alzahri, Mohammad, MD MD ma2 Corrections: (The following items were deleted from the chart) 18:39 13:30 Reassessment: Patient appears in no apparent distress at this time. Patient ph and/or family updated on plan of care and expected duration. Pain level reassessed. Patient is alert, oriented x 3, equal unlabored respirations, skin warm/dry/pink. ph
--- NOTE | 2020-04-22 12:53 | EDPHYS ---
Physician Documentation [facility] Name: Reji Wallace Age: 60 yrs Sex: Male : 1960 Arrival Date: 04/22/2020 Time: 11:12 Bed 7 Private MD: Anshu Herrera ED Physician Lisbeth Shannon HPI: 04/22 12:50 This 60 yrs old Black Male presents to ER via Wheelchair with complaints of Chest Pain. ma2 12:50 The patient or guardian reports chest pain that is located primarily in the substernal ma2 area. Onset: suddenly, gradually, 1 hour(s) ago. Associated signs and symptoms: Pertinent negatives: cough, headache, lower extremity swelling, lightheadedness. The chest pain is described as burning. Duration: The patient or guardian reports a single episode. Severity of pain: At its worst the pain was mild in the emergency department the pain has resolved. The patient has experienced a previous episode. Historical: - Allergies: 11:33 No Known Drug Allergies; ph - Home Meds: 11:33 aspirin 81 mg Oral chew 1 tab once daily [Active]; Xultophy 50 units twice a day for ph Diabetes [Active]; metoprolol succinate 200 mg oral Tb24 1 tab once daily [Active]; Losartan potassium 100 mg 1 tab daily [Active]; metformin 1,000 mg oral tab 1 tab 2 times per day [Active]; Crestor 10 mg Oral tab 1 tab once daily [Active]; cholecalciferol (vitamin D3) oral oral [Active]; Victoza 3-Julio 0.6 mg/0.1 mL (18 mg/3 mL) subcutaneous pnij 0.4 mL once daily [Active]; - PMHx: 11:34 Diabetes - NIDDM; High Cholesterol; Hypertension; Prostate Cancer; ph - PSHx: 11:34 finger sx; prostate; ph - Immunization history:: Adult Immunizations unknown. - Social history:: Smoking status: Patient denies any tobacco usage or history of. Patient/guardian denies using alcohol, street drugs, The patient lives with spouse. - Family history:: not pertinent. ROS: 12:50 Constitutional: Negative for fever, chills, and weight loss, Cardiovascular: Negative ma2 for chest pain, palpitations, and edema, Respiratory: Negative for shortness of breath, cough, wheezing, and pleuritic chest pain. 12:50 All other systems are negative. Exam: 12:50 Constitutional: This is a well developed, well nourished patient who is awake, alert, ma2 and in no acute distress. Chest/axilla: Normal chest wall appearance and motion. Nontender with no deformity. No lesions are appreciated. Cardiovascular: Regular rate and rhythm with a normal S1 and S2. No gallops, murmurs, or rubs. Normal PMI, no JVD. No pulse deficits. Respiratory: Lungs have equal breath sounds bilaterally, clear to auscultation and percussion. No rales, rhonchi or wheezes noted. No increased work of breathing, no retractions or nasal flaring. Abdomen/GI: Soft, non-tender, with normal bowel sounds. No distension or tympany. No guarding or rebound. No evidence of tenderness throughout. Skin: Warm, dry with normal turgor. Normal color with no rashes, no lesions, and no evidence of cellulitis. MS/ Extremity: Pulses equal, no cyanosis. Neurovascular intact. Full, normal range of motion. Neuro: Awake and alert, GCS 15, oriented to person, place, time, and situation. Cranial nerves II-XII grossly intact. Motor strength 5/5 in all extremities. Sensory grossly intact. Cerebellar exam normal. Normal gait. Vital Signs: 11:26 BP 134 / 91; Pulse 102; Resp 18; Temp 97.4; Pulse Ox 98% on R/A; Weight 124.74 kg; ph Height 5 ft. 10 in. (177.80 cm); Pain 7/10; 12:15 BP 111 / 85; Pulse 91; Resp 18; Pulse Ox 98% ; sv 13:26 BP 117 / 87; Pulse 90; Resp 18; Temp 97.8; Pulse Ox 99% on R/A; ph 11:26 Body Mass Index 39.46 (124.74 kg, 177.80 cm) ph MDM: 11:31 Patient medically screened. ma2 12:50 Differential diagnosis: abnormal EKG, gastroesophageal reflux disease (GERD), pleurisy, ma2 stable angina. HEART Score: Risk Factors: > or = 3 Risk factors for atherosclerotic disease (2). The patient was given aspirin in the Emergency Department. FARA Risk Score: 1 - ASA use in past 7 days. Data reviewed: vital signs, nurses notes. Response to treatment: the patient's symptoms have markedly improved after treatment. 04/22 11:27 Order name: Basic Metabolic Panel; Complete Time: 12:42 snw 04/22 11:27 Order name: CBC with Diff; Complete Time: 12:42 snw 04/22 11:27 Order name: LFT's; Complete Time: 12:42 snw 04/22 11:27 Order name: Magnesium; Complete Time: 12:42 04/22 11:27 Order name: NT PRO-BNP; Complete Time: 12:42 w 04/22 11:27 Order name: PT-INR; Complete Time: 12:42 04/22 11:27 Order name: Troponin (emerg Dept Use Only); Complete Time: 12:42 w 04/22 11:27 Order name: XRAY Chest (1 view) w 04/22 11:27 Order name: EKG; Complete Time: 11:28 04/22 11:27 Order name: Cardiac monitoring; Complete Time: 11:33 04/22 11:27 Order name: EKG - Nurse/Tech; Complete Time: 11:33 04/22 11:27 Order name: IV Saline Lock; Complete Time: 12:26 04/22 11:27 Order name: Labs collected and sent; Complete Time: 12:26 04/22 11:27 Order name: O2 Per Protocol; Complete Time: 11:39 w 04/22 11:27 Order name: O2 Sat Monitoring; Complete Time: 11:39 snw Administered Medications: 12:10 Drug: Aspirin Chewable Tablet 162 mg Route: PO; ph 12:30 Follow up: Response: No adverse reaction ph 12:10 Drug: Zofran (Ondansetron) 4 mg Route: IVP; Site: right forearm; ph 12:30 Follow up: Response: No adverse reaction; Nausea is decreased ph 12:12 Drug: morphine 4 mg Route: IVP; Site: right forearm; ph 12:30 Follow up: Response: No adverse reaction; Pain is decreased ph 18:39 Not Given (Hemodynamic Parameters): Nitroglycerin 0.4 mg Sublingual once; every five ph minute if needed x3 Disposition: 04/22/20 12:52 Hospitalization ordered by Prince Caitlin for Observation. Preliminary diagnosis is Chest pain, unspecified. - Bed requested for Telemetry/MedSurg (observation). - Status is Observation. ph - Condition is Stable. - Problem is new. - Symptoms are unchanged. Signatures: Dispatcher [employer] EDMS Jasmin Askew RN RN dw Leona Vega, COMPREHENSIVE OPHTHALMOLOGIST-C COMPREHENSIVE OPHTHALMOLOGIST-Csnw Rosie Rosales RN RN Lisbeth Shannon MD MD ma2 Corrections: (The following items were deleted from the chart) 13:08 12:52 Hospitalization Ordered by Prince Caitlin PANTOJA for Observation. Preliminary dw diagnosis is Chest pain, unspecified. Bed requested for Telemetry/MedSurg (observation). Status is Observation. Condition is Stable. Problem is new. Symptoms are unchanged. ma2 14:31 13:08 04/22/2020 12:52 Hospitalization Ordered by Prince Caitlin PANTOJA for Observation. ph Preliminary diagnosis is Chest pain, unspecified. Bed requested for Telemetry/MedSurg (observation). Status is Observation. Condition is Stable. Problem is new. Symptoms are unchanged. dw
--- NOTE | 2020-04-22 13:19 | RAD REPORT ---
EXAM DESCRIPTION: Rudolph Single View04/22/2020 11:56 am CLINICAL HISTORY: Chest pain COMPARISON: none FINDINGS: The lungs appear clear of acute infiltrate. The heart is normal size IMPRESSION: No acute abnormalities displayed
--- NOTE | 2020-04-22 14:28 | P.HP ---
Certification for Inpatient Patient admitted to: Observation With expected LOS: <2 Midnights Patient will require the following post-hospital care: None Practitioner: I am a practitioner with admitting privileges, knowledge of patient current condition, hospital course, and medical plan of care. Services: Services provided to patient in accordance with Admission requirements found in Title 42 Section 412.3 of the Code of Federal Regulations Patient History Date of Service: 04/22/20 Reason for admission: chest pain History of Present Illness: Patient is a 60 year old male with a known PMH of HTN, HLD, IDDM and prostate cancer in remission. He presents to the ER with progressively worsening chest pain for the past 3 days. He is describing a non-exertional, positional chest pain associated with shortness of breath. Other associated sx include dyspnea on exertion. He is exercise tolerance is one block. He denies any fever or cough. Patient had a negative pharmacological stress test approximately 6 months. 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 Allergies No Known Drug Allergies Allergy (Verified 05/23/16 23:13) Unknown No Known Aller Allergy (Uncoded 01/14/18 00:50) Unknown Home Medications: Insulin Detemir [Levemir*] 80 unit SQ BID 05/23/16 Liraglutide [Victoza 2-Julio] 1.8 mg SQ DAILY 05/23/16 Rosuvastatin [Crestor*] 10 mg PO DAILY 05/23/16 Irbesartan [Avapro*] 150 mg PO DAILY #30 tab 05/26/16 Metoprolol Succinate [Toprol Xl] 25 mg PO DAILY #30 tab.sr.24h 05/26/16 Rosuvastatin Calcium [Crestor] 10 mg PO DAILY #30 tablet 05/26/16 Smz./Tmp. [Bactrim Ds 800 MG/160 MG] 1 tab PO BID #60 tab 05/27/16 - Past Medical/Surgical History Diabetic: Yes -: IDDM -: HTN -: hyperlipidemia -: Prostate biopsy - Family History Father -: Cancer Notes: prostate - Social History Alcohol use: Yes CD- Drugs: No Caffeine use: Yes Physical Examination - Physical Exam General: Cooperative, Mild distress, Obese HEENT: Atraumatic, Normocephalic, EOMI Neck: Supple Respiratory: Clear to auscultation bilaterally, Normal air movement Cardiovascular: No edema, Normal pulses, Regular rate/rhythm, Normal S1 S2 Gastrointestinal: Normal bowel sounds, Soft and benign, Non-distended Musculoskeletal: No clubbing, No swelling, No contractures, No erythema, No tenderness, No warmth Integumentary: No rashes, No breakdown, No significant lesion, No tenderness/swelling, No erythema, No warmth, No cyanosis Neurological: Normal speech, Sensation intact, Normal affect - Studies Laboratory Data (last 24 hrs) 04/22/20 11:50: PT 16.0 H, INR 1.36 04/22/20 11:50: WBC 10.0, Hgb 12.8 L, Hct 40.2, Plt Count 413 H 04/22/20 11:50: Sodium 141, Potassium 3.5, BUN 10, Creatinine 0.84, Glucose 168 H, Magnesium 1.8, Total Bilirubin 0.3, AST 12 L, ALT 18, Alkaline Phosphatase 88 Assessment and Plan - Problems (Diagnosis) (1) Chest pain Current Visit: Yes Status: Acute (2) Hypertension Current Visit: Yes Status: Acute (3) Prostate cancer Current Visit: Yes Status: Acute (4) Hyperlipidemia associated with type 2 diabetes mellitus Current Visit: Yes Status: Acute (5) Diabetes mellitus Onset Date: 05/26/16 Current Visit: No Status: Acute - Advance Directives Does patient have a Living Will: No Does patient have a Durable POA for Healthcare: No Physician Review Additional Text: Assessment Patient is a 60 year old male with HTN, HLD, IDDM, prostate cancer admitted with chest pain. Yet to receive nitroglycerin. Troponin (-) x 1. Chest pain resolved for the most part Chest pain HTN IDDM HLD Prostate cancer PLAN Admit to observation under telemetry monitoring Trend troponin and EKG Follow up 2-D ECHO Follow up D-dimers Check A1c and lipid panel Patient will need a stress test since he's intermediate risk for ACS Medication reconciliation done
[2020-04-22] MEDS ORDERED: ENOXAPARIN 40 MG/0.4 ML SQ SCH (15:00)
[2020-04-22 15:27] LABS: HDL Cholesterol 44 mg/dL (40-60); LDL Cholesterol, Calculated 75 (<130); Troponin I < 0.02 ng/mL (0.0-0.045)
[2020-04-22 15:42] VITALS: BMI 39.4
[2020-04-22] MEDS ORDERED: ONDANSETRON 4 MG/2 ML VIAL IV PRN (15:58)
[2020-04-22] MEDS: NITROGLYCERIN 0.4 MG/TAB SL PRN ×2 (16:01→16:21)
[2020-04-22] MEDS ORDERED: HOME MED 1 EA UNK (Metoprolol Succinate [Toprol Xl] 200 MG) PO SCH (16:23)
[2020-04-22] MEDS ORDERED: HEPARIN 5000 UNIT/ML 1 ML VIAL IV ONE (17:00)
[2020-04-22] MEDS ORDERED: HEPARIN/D5W 25,000 UNIT/500 ML BAG IV SCH (17:00)
[2020-04-22 17:38] LABS: Absolute Lymphocytes (CBC) 2.8 K/uL (0.7-4.9); Basophils % 0.3 % (0-1.3); Hematocrit 40.6 % (39.6-49.0); Lymphocytes % 23.9 % (15.3-44.8); MPV 8.2 fL (7.6-11.3); RBC Red Blood Cell Count 4.55 M/uL (4.33-5.43)
[2020-04-22 17:57] LABS: Protime INR 1.29
[2020-04-22] MEDS ORDERED: GLUCAGON 1 MG/VIAL IM PRN (18:38)
[2020-04-22] MEDS ORDERED: D50W 25 GM/50 ML SYRINGE/VIAL IV PRN (18:38)
[2020-04-22] MEDS ORDERED: MORPHINE 2 MG/ML SYR IV PRN (18:39)
[2020-04-22] MEDS: INSULIN GLARGINE 100 UNITS/ML SQ SCH (20:47)
[2020-04-22] MEDS: INSULIN -REGULAR HUMAN 50 UNIT/0.5 ML ML SQ SCH (20:47)
[2020-04-22] MEDS ORDERED: INSULIN DETEMIR 80 UNIT SQ SCH (21:00)
[2020-04-22] MEDS ORDERED: METOPROLOL TAR 50 MG TAB PO SCH (21:00)
[2020-04-23] MEDS: METOPROLOL XL 100 MG TAB PO SCH (05:36)
[2020-04-23] MEDS: ASPIRIN EC 81 MG TAB PO SCH (05:36)
[2020-04-23 06:07] LABS: MPV 7.9 fL (7.6-11.3)
[2020-04-23 06:51] LABS: Platelet Estimate ADEQ
[2020-04-23] MEDS ORDERED: HEPA 1000U/500MLS 2,000 UNIT/1,000 ML BAG IV ONE (06:55)
[2020-04-23] MEDS: INSULIN -REGULAR HUMAN 50 UNIT/0.5 ML ML SQ SCH ×4 (07:30→20:29)
[2020-04-23] MEDS: INSULIN GLARGINE 100 UNITS/ML SQ SCH ×2 (09:00→20:29)
[2020-04-23] MEDS ORDERED: METOPROLOL XL 25 MG TAB PO SCH ×2 (09:00)
[2020-04-23] MEDS ORDERED: ASPIRIN EC 81 MG TAB PO SCH (09:00)
[2020-04-23] MEDS ORDERED: HOME MED 1 EA UNK (Losartan Potassium [Cozaar] 100 MG) PO SCH (09:00)
[2020-04-23] MEDS ORDERED: lisinopriL 10 MG TAB PO SCH (09:00)
[2020-04-23] MEDS: LOSARTAN POTASSIUM 50 MG TABLET PO SCH (09:00)
[2020-04-23] MEDS ORDERED: ROSUVASTATIN 10 MG TAB PO SCH (09:00)
[2020-04-23] MEDS: ROSUVASTATIN 10 MG TAB PO SCH (09:00)
--- NOTE | 2020-04-23 10:04 | CON ---
Date of Consultation: 04/22/2020 Reason For Consultation: Unstable angina. History Of Present Illness: Mr. Wallace is a 60-year-old black male, who has a history of diabetes, hy pertension, dyslipidemia, family history of heart disease, came in with substernal chest pressure cass t has been going on intermittently for about a week, radiates to the left arm with pain and numbness in the left arm and occasionally he has symptoms in the right leg and the left leg as well with numbn ess while he is having the chest pressure. It is not exertional. Denied any PND, orthopnea, pedal e feli, palpitations, or syncope. Denied any fever or cough or chills. Symptoms would last 30 minutes to an hour at a time, but it would kody and comes back. Past Medical History: As stated above. Allergies: NONE. Review of Systems: Negative. Social History: Negative. Family History: Positive for heart disease. Medications At Home: Crestor, metformin, Cozaar, aspirin, and insulin. Physical Examination: General: He weighed 275 pounds. No acute distress. Vital Signs: Stable, afebrile. HEENT: Negative. Neck: Supple, no bruit. Chest: Clear. Cardiac: Revealed a regular rhythm and rate. No murmurs, gallops, or rubs. Abdomen: Benign. Extremities: Revealed no clubbing, cyanosis, or edema. Pulses are present distally bilaterally. Skin: Dry and intact. Neurologic: He was nonfocal. Diagnostic Data: Showed a white count of 11.6. EKG showed LVH. The rest of the blood work was unre markable. Troponin was negative. Impression And Plan: I think Mr. Wallace's symptoms are consistent with unstable angina. He has multi ple cardiac risk factors including hypertension, diabetes, dyslipidemia, family history, obesity. I think the best approach will be to do a left heart catheterization on Mr. Wallace to define his coronar y anatomy. Patient understands the risk and the benefits of the procedure and he agrees to proceed. The other problems including hypertension, diabetes, and dyslipidemia are well controlled. NB/MODL Voice ID: [id number] Report ID: [id number]
[2020-04-23] MEDS ORDERED: NA CHLORIDE 0.9% 1,000 ML ONE (10:23)
[2020-04-23] MEDS ORDERED: HEPARIN 5000 UNIT/ML 1 ML VIAL ONE ×2 (10:49)
[2020-04-23] MEDS ORDERED: NICARDIPINE HCL 25 MG/10 ML IV ONE (10:50)
[2020-04-23] MEDS ORDERED: FENTANYL CITR 100 MCG/2 ML ONE (10:50)
[2020-04-23] MEDS ORDERED: ATROPINE SULF 1 MG/10 ML SYR IV ONE (10:50)
[2020-04-23] MEDS ORDERED: MIDAZOLAM HCL 2 MG/2 ML INJ ONE ×2 (10:50→11:32)
--- NOTE | 2020-04-23 11:56 | P.PN ---
Subjective Date of Service: 04/23/20 Chief Complaint: chest pain Subjective: Improving (Is doing better on heparin drip. Chest pain has resolved for the most part. Is NPO pending coronary angiogram with Cardiology today and) Physical Examination - Vital Signs Temperature: 97.2 F Blood Pressure: 108/74 Pulse: 90 Respirations: 18 Pulse Ox (%): 97 - Physical Exam General: Alert, In no apparent distress, Cooperative, Obese HEENT: Atraumatic, Normocephalic, EOMI Neck: Supple Respiratory: Clear to auscultation bilaterally, Normal air movement Cardiovascular: No edema, Regular rate/rhythm, Normal S1 S2 Gastrointestinal: Normal bowel sounds, Soft and benign, Non-distended Musculoskeletal: No clubbing, No swelling, No contractures, No erythema, No tenderness, No warmth Integumentary: No rashes, No breakdown, No significant lesion, No tenderness/swelling, No erythema, No warmth, No cyanosis Neurological: Normal speech, Sensation intact, Normal affect - Studies Laboratory Data (last 24 hrs) 04/22/20 11:50: PT 16.0 H, INR 1.36 04/22/20 11:50: WBC 10.0, Hgb 12.8 L, Hct 40.2, Plt Count 413 H 04/22/20 11:50: Sodium 141, Potassium 3.5, BUN 10, Creatinine 0.84, Glucose 168 H, Magnesium 1.8, Total Bilirubin 0.3, AST 12 L, ALT 18, Alkaline Phosphatase 88 Assessment & Plan - Problems (Diagnosis) (1) Chest pain Current Visit: Yes Status: Acute (2) Hypertension Current Visit: Yes Status: Acute (3) Prostate cancer Current Visit: Yes Status: Acute (4) Hyperlipidemia associated with type 2 diabetes mellitus Current Visit: Yes Status: Acute (5) Diabetes mellitus Onset Date: 05/26/16 Current Visit: No Status: Acute Physician Review Additional Text: Assessment Patient is a 60 year old male with HTN, HLD, IDDM, prostate cancer admitted with chest pain. After partial response to nitroglycerin, and was started on heparin infusion for suspected stable angina. Cardiology has been consulted. Pulmonary embolism has been ruled Chest pain HTN IDDM HLD Prostate cancer PLAN Continue traffic analyst Coronary angiogram today with Cardiology Follow-up 2D echo Resumed on home dose of long-acting insulin and statin
--- NOTE | 2020-04-23 15:09 | ECHO ---
HEIGHT: 5 ft 10 in WEIGHT: 275 lb 0 oz DATE OF STUDY: 04/23/[address]: Prince Ramona Tucker MD 2-DIMENSIONAL: YES M.MODE: YES DOPPLER: YES COLOR FLOW: YES TDS: NO PORTABLE: NO DEFINITY: NO BUBBLE STUDY: NO DIAGNOSIS: CHEST PAIN CARDIAC HISTORY: CATHERIZATION: YES SURGERY: NO PROSTHETIC VALVE: NO PACEMAKER: NO MEASUREMENTS (cm) DIASTOLIC (NORMALS) SYSTOLIC (NORMALS) IVSd 1.0 (0.6-1.2) LA Diam 3.3 (1.9-4.0) LVEF 63% LVIDd 4.1 (3.5-5.7) LVIDs 2.7 (2.0-3.5) %FS 34% LVPWd 1.0 (0.6-1.2) Ao Diam 2.6 (2.0-3.7) 2 DIMENSIONAL ASSESSMENT: RIGHT ATRIUM: NORMAL LEFT ATRIUM: NORMAL RIGHT VENTRICLE: NORMAL LEFT VENTRICLE: NORMAL TRICUSPID VALVE: NORMAL MITRAL VALVE: NORMAL PULMONIC VALVE: NORMAL AORTIC VALVE: NORMAL PERICARDIAL EFFUSION: NONE AORTIC ROOT: NORMAL LEFT VENTRICULAR WALL MOTION: NORMAL. DOPPLER/COLOR FLOW: NORMAL. COMMENTS: NORMAL LEFT VENTRICULAR EJECTION FRACTION 55-60%. NORMAL WALL MOTION. NORMAL DIASTOLIC FUNCTION. TECHNOLOGIST: ALEJANDRO BRANTLEY
[2020-04-23] MEDS ORDERED: TRAMADOL HCL 50 MG TAB PO PRN (19:46)
[2020-04-24] MEDS: INSULIN -REGULAR HUMAN 50 UNIT/0.5 ML ML SQ SCH (07:30)
[2020-04-24] MEDS: METOPROLOL XL 100 MG TAB PO SCH (08:15)
[2020-04-24] MEDS: ASPIRIN EC 81 MG TAB PO SCH (08:16)
[2020-04-24] MEDS: LOSARTAN POTASSIUM 50 MG TABLET PO SCH (08:16)
[2020-04-24] MEDS: ROSUVASTATIN 10 MG TAB PO SCH (08:16)
[2020-04-24] MEDS: INSULIN GLARGINE 100 UNITS/ML SQ SCH (08:17)
[2020-04-24 08:18] VITALS: BP 121/78
[2020-04-24 09:07] VITALS: TEMP 97.3
[2020-04-24 09:57] VITALS: O2SAT 97
--- NOTE | 2020-04-24 10:27 | P.DS ---
Admission Date: 04/22/20 Discharge Date: 04/24/20 Disposition: ROUTINE DISCHARGE Discharge Condition: GOOD Reason for Admission: chest pain - Problems (1) Chest pain Current Visit: Yes Status: Acute (2) Hypertension Current Visit: Yes Status: Acute (3) Prostate cancer Current Visit: Yes Status: Acute (4) Hyperlipidemia associated with type 2 diabetes mellitus Current Visit: Yes Status: Acute (5) Diabetes mellitus Onset Date: 05/26/16 Current Visit: No Status: Acute Brief History of Present Illness: Patient is a 60 year old male with a known PMH of HTN, HLD, IDDM and prostate cancer in remission. He presents to the ER with progressively worsening chest pain for the past 3 days. He is describing a non-exertional, positional chest pain associated with shortness of breath. Other associated sx include dyspnea on exertion. He is exercise tolerance is one block. He denies any fever or cough. Patient had a negative pharmacological stress test approximately 6 months. 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 Hospital Course: Patient is a 60-year-old male with morbid obesity, hypertension and uncontrolled type 2 diabetes mellitus. He presented to the ER complaining of chest pain. He was admitted with concern for unstable angina and was started on heparin drip. Cardiology performed a coronary angiogram which revealed pa tent vessels. He tolerated the procedure well. Patient will be treated medically with aspiri, Rosuvastatin, beta royer and p.r.n. nitroglycerin. His hemoglobin A1c was 8.8 and LDL of 75. Vital Signs/Physical Exam: Temp Pulse Resp BP Pulse Ox 97.3 F 88 18 121/78 98 04/24/20 08:00 04/24/20 08:15 04/24/20 08:00 04/24/20 08:15 04/24/20 08:00 General: Alert, In no apparent distress, Cooperative, Obese HEENT: Atraumatic, Normocephalic, EOMI Neck: Supple Respiratory: Clear to auscultation bilaterally, Normal air movement Cardiovascular: No edema, Normal pulses, Regular rate/rhythm, Normal S1 S2 Gastrointestinal: Normal bowel sounds, Soft and benign, Non-distended Musculoskeletal: No clubbing, No swelling, No contractures, No erythema, No tenderness, No warmth Integumentary: No rashes, No breakdown, No significant lesion, No tenderness/swelling, No erythema, No warmth, No cyanosis Neurological: Normal speech, Sensation intact, Normal affect Laboratory Data at Discharge: WBC 11.6 K/uL (4.3-10.9) H D 04/22/20 17:27 Hgb 12.6 g/dL (13.6-17.9) L 04/22/20 17:27 Hct 40.6 % (39.6-49.0) 04/22/20 17:27 Plt Count Cancelled 04/24/20 05:00 PT 15.1 SECONDS (9.5-12.5) H 04/22/20 17:27 INR 1.29 04/22/20 17: APTT 36.0 SECONDS (24.3-36.9) 04/23/20 10:29 Sodium 141 mmol/L (136-145) 04/22/20 11:50 Potassium 3.5 mmol/L (3.5-5.1) 04/22/20 11:50 BUN 10 mg/dL (7-18) 04/22/20 11:50 Creatinine 0.84 mg/dL (0.55-1.3) 04/22/20 11:50 Glucose 168 mg/dL (74-106) H 04/22/20 11:50 Magnesium 1.8 mg/dL (1.8-2.4) 04/22/20 11:50 Total Bilirubin 0.3 mg/dL (0.2-1.0) 04/22/20 11:50 AST 12 U/L (15-37) L 04/22/20 11:50 ALT 18 U/L (12-78) 04/22/20 11:50 Alkaline Phosphatase 88 U/L (45-117) 04/22/20 11:50 Troponin I < 0.02 ng/mL (0.0-0.045) 04/23/20 05:50 Triglycerides 57 mg/dL (<150) 04/22/20 14:45 Cholesterol 130 mg/dL (<200) 04/22/20 14:45 HDL Cholesterol 44 mg/dL (40-60) 04/22/20 14:45 Cholesterol/HDL Ratio 2.95 04/22/20 14:45 Home Medications: Aspirin [Aspirin EC 81 MG] 81 mg PO DAILY 04/22/20 Cholecalciferol (Vitamin D3) [Vitamin D3] 1,000 units PO EVERY 7TH DAY 04/22/20 Insulin Degludec/Liraglutide [Xultophy 100 Unit-3.6MG/ml Pen] 50 units SQ BID 04/22/20 Losartan Potassium [Cozaar] 100 mg PO DAILY 04/22/20 Metoprolol Succinate [Toprol Xl] 200 mg PO DAILY 04/22/20 Rosuvastatin [Crestor*] 10 mg PO DAILY 04/22/20 Nitroglycerin 0.4 mg SL DIRECTED PRN #50 tab.subl 04/24/20 Rosuvastatin [Crestor*] 10 mg PO DAILY tab 04/24/20 New Medications: Nitroglycerin 0.4 mg SL DIRECTED PRN #50 tab.subl PRN Reason: chest pain Diet: ADA
== END 2020-04-24 11:10 | disposition home or self-care (01) ==
LOC: ER 11:11 → ERHOLD 13:10 → 2ND 13:42
PROVIDERS: ADMIT Internal Medicine; ATTEND Internal Medicine
DX: I25.110 Atherosclerotic heart disease of native coronary artery with unstable angina pectoris (principal); I11.9 Hypertensive heart disease without heart failure; E78.5 Hyperlipidemia, unspecified; E11.65 Type 2 diabetes mellitus with hyperglycemia; R06.02 Shortness of breath; R06.09 Other forms of dyspnea; Z20.828 Contact with and (suspected) exposure to other viral communicable diseases; E66.01 Morbid (severe) obesity due to excess calories; Z68.39 Body mass index [BMI] 39.0-39.9, adult; Z79.4 Long term (current) use of insulin; Z79.82 Long term (current) use of aspirin; Z79.899 Other long term (current) drug therapy; Z82.49 Family history of ischemic heart disease and other diseases of the circulatory system; Z85.46 Personal history of malignant neoplasm of prostate
CPT/HCPCS: 93005 ×4; 93306; 85025 ×2; 80048; 36415 ×2; 83735; 85049; 85610 ×2; 80061; 82947 ×9; 85379; 80076; 85730 ×5; 83036; 84484 ×4; 83880 ×2; 71045; 93458; 94760 ×5; 96375; 96374; 99285; U0002; C1893; J1644 ×2; J1650; J2250 ×2; J3010; J2270; J1815 ×2; J7030; J2405 ×2; G0378 ×4

== ENCOUNTER 2021-03-15 06:30 | Day surgery (SDC) | payer OTHER ==
--- NOTE | 2021-03-12 10:34 | RAD REPORT ---
EXAM DESCRIPTION: Rudolph Vu (2 Views)03/12/2021 9:28 am CLINICAL HISTORY: Preop COMPARISON: 2019 FINDINGS: The lungs appear clear of acute infiltrate. The heart is normal size IMPRESSION: No acute abnormalities displayed
[2021-03-12 10:47] LABS: Absolute Lymphocytes (CBC) 1.9 K/uL (0.7-4.9); Basophils % 0.4 % (0-1.3); Hematocrit 39.8 % (39.6-49.0); Lymphocytes % 26.4 % (15.3-44.8); MPV 8.2 fL (7.6-11.3); RBC Red Blood Cell Count 4.49 M/uL (4.33-5.43)
[2021-03-12 11:04] LABS: Protime INR 1.21
[2021-03-12 11:21] LABS: BUN Blood Urea Nitrogen 12 mg/dL (7-18); Bicarbonate 29 mmol/L (21-32); Glucose Level 198 mg/dL (74-106); Potassium 4.2 mmol/L (3.5-5.1); Sodium Level 140 mmol/L (136-145)
--- NOTE | 2021-03-12 17:41 | EKG ---
Test Date: 2021-03-12 Test Time: 07:57:44 Binder Stripper Hand: ESTEFANÍA MEASUREMENT RESULTS: Intervals: Rate: 71 WA: 168 QRSD: 86 QT: 378 QTc: 410 Ellerbe: P: 62 WA: 168 QRS: 45 T: 63 INTERPRETIVE STATEMENTS: Normal sinus rhythm Normal ECG Compared to ECG 04/23/2020 01:15:02 No significant changes Electronically Signed On 03-12-21 17:40:04 CDT by Joe Smith
[2021-03-15] MEDS ORDERED: NA CHLORIDE 0.9% 1,000 ML ONE ×2 (07:02→10:20)
[2021-03-15] MEDS ORDERED: CEFAZOLIN/SWI 1gm 1 GM/10 ML SYR ONE (07:02)
[2021-03-15] MEDS ORDERED: FENTANYL CITR 100 MCG/2 ML ONE (07:30)
[2021-03-15] MEDS ORDERED: LIDOCAINE 1% MPF 5 ML VIAL ONE (07:30)
[2021-03-15] MEDS ORDERED: MIDAZOLAM HCL 2 MG/2 ML INJ ONE (07:30)
[2021-03-15] MEDS ORDERED: propofoL 200 MG/20 ML VIAL IV ONE (07:30)
[2021-03-15] MEDS ORDERED: KETOROLAC 30 MG/ML INJ ONE (08:10)
[2021-03-15] MEDS: BUPIVACAINE 0.25% PF 30 ML VIAL ONE ×2 (08:19→08:40)
[2021-03-15] MEDS ORDERED: ONDANSETRON 4 MG/2 ML VIAL ONE (08:42)
[2021-03-15] MEDS ORDERED: EPHEDRINE SULF 50 MG/ML VIAL ONE (08:43)
[2021-03-15] MEDS ORDERED: NS 0.9% VIAL 10 ML ONE (08:43)
--- NOTE | 2021-03-15 09:08 | P.BOP ---
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
[2021-03-15] MEDS ORDERED: MEPERIDINE HCL 25 MG/ML SYR ONE ×2 (09:38→09:48)
[2021-03-15] MEDS ORDERED: HYDROMORPHONE HCL 1 MG/ML INJ ONE (09:58)
[2021-03-15] MEDS ORDERED: HYDROCODONE/APAP 7.5/325 MG TAB ONE (10:56)
[2021-03-15 12:06] VITALS: BP 108/64; TEMP 97.6; O2SAT 99
--- NOTE | 2021-03-18 13:13 | OP ---
Date of Procedure: 03/15/2021 Surgeon: Chance Caballero MD Preoperative Diagnosis: Left knee medial meniscus tear. Postoperative Diagnoses: 1.Left knee medial meniscus tear. 2.Left knee grade 4 chondromalacia, medial femoral condyle, trochlear groove. Procedure Performed: Left arthroscopic partial medial meniscectomy. Anesthesia: General LMA. Fluids: Per Anesthesia record. Estimated Blood Loss: 3 cc. Complications: None. Implants: None. Indication For Procedure: Reji is a 60-year-old male, who presented to my clinic with signs and sympt oms and MRI findings consistent with left knee medial meniscus tear. I discussed with the patient at length risks and benefits associated with operative and nonoperative treatment. He expressed unders tanding and elected to proceed with operative treatment. Procedure In Detail: After informed consent was obtained, the patient was identified in the preopera tive holding area where the left lower extremity was marked. The patient was then brought back to [facility] operating room, transferred to the operating table in the supine fashion and placed under general L MA anesthesia. The left lower extremity was then prepped and draped in the usual sterile fashion. A time-out was initiated. The correct patient and procedure were confirmed and identified. The patie nt did receive his preoperative prophylactic antibiotics. The left lower extremity was then exsangui nated and the tourniquet was inflated at 300 mmHg. Standard anterior medial and anterior lateral por tals were created and a diagnostic arthroscopy was performed. The arthroscope was brought in via the anterolateral portal. Once into the patellofemoral joint, the patient was noted to have grade 4 coby nges of the trochlear groove as well as medial femoral condyle noted on arthroscopy. There were some grade 3 changes on the undersurface of the patella. The arthroscope was then brought in both medial and lateral gutters. There were no loose bodies noted compartment. The arthroscope was then irwin t into the medial compartment where the patient was noted to have some chondromalacia changes of the medial femoral condyle as well as grade 4 chondromalacia changes up in the posterior border of the me dial meniscus. The patient was noted to have a complex tear of the posterior horn of the medial meni scus and a partial meniscectomy was first performed using arthroscopic meniscal biter as well as arth roscopic shaver. This was performed to maintain smooth meniscal borders. The arthroscope was then b rought into the intercondylar notch. The patient was noted to have an intact ACL and PCL. The arthr oscope was then brought in the lateral compartment where the patient was noted to have intact lateral meniscus, which was stable to probe and no significant chondromalacia changes. The arthroscopic ins truments were then removed without complications. The wounds were then irrigated thoroughly with nor mal saline. Portals were approximated using a 3-0 Monocryl. Sterile dressings were applied. The pa tient was awakened and transferred to the PACU in stable condition. Postoperative Plan: The patient will be weightbearing as tolerated to the left lower extremity. Phy sical Therapy will be consulted to aid with range of motion and strengthening for a post meniscectomy protocol. PHUONG/LEONIDL Voice ID: [id number] Report ID: [id number]
== END 2021-03-15 11:40 | disposition home or self-care (01) ==
LOC: OR 06:30
PROVIDERS: ATTEND Orthopaedic Surgery Sports Medicine
PROC: 0SBD4ZZ Excision of Left Knee Joint, Percutaneous Endoscopic Approach (ICD-10-PCS; principal; 2021-03-15 07:30)
DX: S83.242A Other tear of medial meniscus, current injury, left knee, initial encounter (principal); M25.562 Pain in left knee; E11.9 Type 2 diabetes mellitus without complications; I10 Essential (primary) hypertension; E78.00 Pure hypercholesterolemia, unspecified; C61 Malignant neoplasm of prostate; Z20.822 Contact with and (suspected) exposure to COVID-19
CPT/HCPCS: 93005; 85025; 80048; 36415; 85610; 82947 ×2; 85730; 71046; 29881; U0002; J2704; J2250; J3010; J2175 ×2; J0690; J7030 ×2; J2405; J1170

== ENCOUNTER 2022-02-05 22:48 | Observation (INO) | payer OTHER ==
--- OUTSIDE RECORDS SUMMARY | 2022-02-05 22:51 | XMS REPORT | Continuity of Care Document ---
:1960 Author Organization [facility] t Address [address] [place] [address] Care Team Providers Name Role Phone TRUMAN Primary Care Physician Unavailable Sharon Attending Clinician Unavailable BLAISE Attending Clinician Unavailable SYSTEM, NOT IN Attending Clinician Unavailable Gary_T Attending Clinician Unavailable Casey CHAVEZ Attending Clinician Migue MIRAMONTES, O Attending Clinician Unavailable Wilmer PANTOJA Attending Clinician Truman PANTOJA Attending Clinician Sachin OQUENDO, P Attending Clinician Eber PANTOJA, H Attending Clinician Lab, Fam Pob I Attending Clinician Unavailable Ramona Lafleur Attending Clinician Sharon Admitting Clinician Unavailable BLAISE Admitting Clinician Unavailable Gary_Shannan Admitting Clinician Unavailable Payers Payer Name Policy Type Policy Number Effective Date Expiration Date Maria L ajith [employer] (EPO) [id number] 2011 00:00:00 [employer]ET[employer] MANAGED [id number] 2011 MD So CAREAETNA 00:00:00 [id number] 11/2010-Present[address] [address]AKE [facility] [id number] 2018 ACCESS 00:00:00 Problems Condition Condition Condition Status Onset Resolution Last Treating Co mments Source Name Details Category Date Date Treatment Clinician Date 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 3-28 Family mellitus Mellitus 00:00: Practi c 00 e Urinary Urinary Problem Active [facility] incontinen Incontinen 3-28 Fa matt ce ce 00:00: Practic 00 e Body mass Body Mass Problem Active Nataly mora index 40+ Index 40+ 3-28 Fami ly - severely - Severely 00:00: Pr actic obese Obese 00 e Long-term Long-term Problem Active Nataly abby current Current 6-22 Family use of Use of 00:00: Practic insulin Insulin 00 e 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 4-01 Angel o mellitus mellitus 00:00: n 00 Thrombocyt Thrombocyt Problem Active [facility] osis osis 3-19 Family 00:00: Practic 00 e Anemia Anemia Problem Active [facility] 3-19 Family 00:00: Practic 00 e Essential Essential Disease Active (hemorrhag (hemorrhag 3-19 An derso ic) ic) 00:00: n thrombocyt thrombocyt 00 hemia hemia Anemia of Anemia of Disease Active chronic chronic 2-18 Anderso disease disease 00:00: n 00 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 2-18 Angel o mellitus mellitus 00:00: n with with 00 diabetic diabetic chronic chronic kidney kidney disease disease Coronary Coronary Disease Active arterioscl arterioscl 2-18 An derso erosis erosis 00:00: n 00 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 4-24 Family mellitus Mellitus 00:00: Practi c without without 00 e complicati Complicati on on Hyperlipid Hyperlipid Problem Active [facility] emia emia 4-24 Family 00:00: Practic 00 e Obesity Obesity Problem Active [facility] 4-24 Family 00:00: Practic 00 e Essential Essential Problem Active Nataly abby hypertensi Hypertensi 4-24 Fa matt on on 00:00: Practic 00 e Primary Primary Problem Active [facility] erectile Erectile 4-24 Family dysfunctio Dysfunctio 00:00: Pr actic n n 00 e Malignant Malignant Problem Active Nataly mora tumor of Tumor of 24 Family prostate Prostate 00:00: Practi c 00 e Impotence Impotence Problem Active Nataly abby 4-24 Family 00:00: Practic 00 e Clinical Clinical Problem Active Andrews ge finding Finding 02-23 Family 00:00: Practic 00 e General General Problem Active [facility] finding of Finding of 02-23 Fa matt observatio Observatio 00:00: Pr actic n of n of 00 e patient Patient Hypertensi Hypertensi Disease Active M D on on 02-23 Anderso 00:00: n 00 Carcinoma Carcinoma Disease Active MD of of 02-23 Anderso prostate prostate 00:00: n 00 Morbid Morbid Disease Active MD obesity obesity 02-23 Anderso 00:00: n 00 Herpes Herpes Disease Active zoster zoster 11-02 Anderso 00:00: n 00 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 Currently managed with insulin Morbid Morbid Disease Active (severe) (severe) 11-02 Angel o obesity obesity 00:00: n due to due to 00 excess excess calories calories Allergies, Adverse Reactions, Alerts Allergy Allergy Status Severity Reaction(s) Onset Inactive Treating Comm ents Source Name Type Date Date Clinician METFORMI Allergy Active [facility] N 7 00:00: 00 Metformi Allergy Active [facility] n to Family substanc Practic e e NO KNOWN Drug Active [facility] ALLERGIE Class ity of S [facility] NO KNOWN Allergy Active [facility] Family History Family Member Diagnosis Comments Start Date Stop Date Source Natural father -Other cancer Lowell rson Natural father Brain cancer [facility] son Natural father Lung cancer Angel on Natural father Prostate cancer MD Yani izaguirre Social History Social Habit Start Date Stop Date Quantity Comments Source Exposure to Yes [facility] SARS-CoV-2 [facility] Alcohol intake 2021-02-07 2021-02-07 Current drinker MD Yani izaguirre 00:00:00 00:00:00 of alcohol (finding) Tobacco use and 2021-01-31 2021-01-31 Smokeless tobacco MD So exposure 00:00:00 00:00:00 non-user Sex Ass[birth year] At [birth year] MD Ortiz on 00:00:00 00:00:00 Smoking Status Start Date Stop Date Source Unknown if ever smoked [facility] [place] Never smoked tobacco MD So Medications Ordered Filled Start Stop Current Ordering Indication Dosage Frequency Signature Comments Components Source Medication Medication Date Date Medication? Clinician (SIG) Name Name Reynold Flaherty Uyen Flaherty [facility] Keyon 14 Keyon 14 6-22 Keyon 14 Fam janelle Day Sensor Day Sensor 00:00: Day Sensor Practic as directed as directed 00 as e directed diazePAM Yes Adenocarcin 10mg Take 1 MD (Valium) 10 4-06 dali of tablet (10 Anderso mg tablet 00:00: prostate mg) by n 00 mouth once as needed for sedation for up to 1 dose. aspirin 81 Yes 1{tbl} Take 1 MD mg EC 4-01 tablet by Anderso tablet 08:27: mouth n 51 daily. empaglifloz Yes 2{tbl} Take 2 MD in-metformi 4-01 tablets by An derso n (Synjardy 08:27: mouth n XR) 08 daily. 12.5-1,000 mg TBph metoprolol Yes 1{tbl} Take 1 MD succinate 3-17 tablet by [facility] so (TOPROL XL) 00:00: mouth n 200 mg 24 00 daily. hr tablet rosuvastati Yes 1{tbl} Take 1 MD n (CRESTOR) 3-03 tablet by And erso 10 mg 00:00: mouth n tablet 00 daily. Tresiba Yes 3mL Inject 3 MD FlexTouch 3-03 mL under Angel o U-200 200 00:00: the skin n unit/mL (3 00 as needed. mL) insulin pen Trulicity Yes 3mg Inject 3 MD 1.5 mg/0.5 1-29 mg under [facility] so mL 00:00: the skin n injection 00 once a week. tamsulosin 2019-11 Yes 1{capsu Take 1 MD (FLOMAX) 1-26 le} capsule by [facility] so 0.4 mg 24 00:00: mouth n hr capsule 00 daily. sildenafil 2019-11 Yes 1{tbl} Take 1 MD (VIAGRA) 1-18 tablet by Angel o 100 MG 00:00: mouth as n tablet 00 needed. losartan 2018-11 Yes 1{tbl} Take 1 MD (COZAAR) 2-16 tablet by Angel o 100 mg 00:00: mouth n tablet 00 daily. aspirin 81 aspirin 81 No 1 Q1D aspirin 81 Village mg mg mg Family tablet,jordyn tablet,jordyn tablet,del Practic yed release yed release ayed e Take 1 Take 1 release tablet tablet Take 1 every day every day tablet by oral by oral every day route as route as by oral directed. directed. route as directed. BD BD No BD [facility] Ultra-Fine Ultra-Fine Ultra-Fine Family Mini Pen Mini Pen Mini Pen Pra ctic Needle 31 Needle 31 Needle 31 e gauge x gauge x gauge x 01/15" as 01/15" as 01/15" as directed directed directed BD Veo BD Veo No BD Veo [facility] Insulin Insulin Insulin Family Syringe Syringe Syringe Practi c Ultra-Fine Ultra-Fine Ultra-Fine e 0.3 mL 31 0.3 mL 31 0.3 mL 31 gauge x gauge x gauge x " " " Comfort EZ Comfort EZ No 2needle Q1D Comfort EZ [place] Pen [place] Pen [place] (s) Pen F amily 32 gauge x 32 gauge x [place] 32 Practic 1" Take 2 4" Take 2 gauge x e needles needles 11/05" Take every day every day 2 needles by miscell. by miscell. every day route as route as by directed. directed. miscell. route as directed. Contrave 8 Contrave 8 No 2 BID Contrave 8 Village mg-90 mg mg-90 mg mg-90 mg Fam janelle tablet,exte tablet,exte tablet,ext Practic nded nded ended e release release release Take 2 Take 2 Take 2 tablets tablets tablets twice a day twice a day twice a by oral by oral day by route for route for oral route 30 days. 30 days. for 30 days. gabapentin gabapentin No gabapentin [facility] 300 mg 300 mg 300 mg Family capsule capsule capsule Practi c e Humalog Humalog No Humalog Vill[facility] e PurviikPen Leslee Camilo Family U-200 U-200 U-200 Practic Insulin 200 Insulin 200 Insulin e unit/mL (3 unit/mL (3 200 mL) mL) unit/mL (3 subcutaneou subcutaneou mL) s Give s Give subcutaneo before before us Give meals using meals using before CF 1:20 if CF 1:20 if meals glucose glucose using CF >200: TDD >200: TDD 1:20 if 50 50 glucose >200: TDD 50 losartan losartan No losartan Nataly abby 100 mg 100 mg 100 mg Family tablet 1 tablet 1 tablet 1 Pra ctic tablet tablet tablet e everyday everyday everyday metoprolol metoprolol No metoprolol [facility] succinate succinate succinate Family ER 200 mg ER 200 mg ER 200 mg Practic tablet,exte tablet,exte tablet,ext e nded nded ended release 24 release 24 release 24 hr 1 tablet hr 1 tablet hr 1 everyday everyday tablet everyday Ozempic 1 Ozempic 1 No 1mg Q1W Ozempic 1 Village mg/dose (4 mg/dose (4 mg/dose (4 Family mg/3 mL) mg/3 mL) mg/3 mL) Pra ctic subcutaneou subcutaneou subcutaneo e s pen s pen us pen injector injector injector Inject 1 mg Inject 1 mg Inject 1 every week every week mg every by by week by subcutaneou subcutaneou subcutaneo s route for s route for us route 90 days. 90 days. for 90 days. rosuvastati rosuvastati No 1 Q1D rosuvastat [facility] n 10 mg n 10 mg in 10 mg Famil y tablet Take tablet Take tablet Practic 1 tablet 1 tablet Take 1 e every day every day tablet by oral by oral every day route as route as by oral directed. directed. route as directed. sildenafil sildenafil No sildenafil [facility] 100 mg 100 mg 100 mg Family tablet TAKE tablet TAKE tablet Practic ONE (1) ONE (1) TAKE ONE e TABLET(S) TABLET(S) (1) BY MOUTH BY MOUTH TABLET(S) ONCE A DAY ONCE A DAY BY MOUTH NEEDED. NEEDED. ONCE A DAY NEEDED. Synjardy XR Synjardy XR No 2 Q1D Synjardy [facility] 12.5 12.5 XR 12.5 Family mg-1,000 mg mg-1,000 mg mg-1,000 Practic tablet, tablet, mg tablet, e extended extended extended release release release Take 2 Take 2 Take 2 tablets tablets tablets every day every day every day by oral by oral by oral route in route in route in the morning the morning the for 90 for 90 morning days. days. for 90 days. tolterodine tolterodine No tolterodin [facility] ER 4 mg ER 4 mg e ER 4 mg Fami ly capsule,ext capsule,ext capsule,ex Practic ended ended tended e release 24 release 24 release 24 hr hr hr tramadol 50 tramadol 50 No tramadol Village mg tablet mg tablet 50 mg Fami ly tablet Practic e Tresiba Tresiba No Tresiba [facility] FlexTouch FlexTouch FlexTouch Family U-200 U-200 U-200 Practic insulin 200 insulin 200 insulin e unit/mL (3 unit/mL (3 200 mL) mL) unit/mL (3 subcutaneou subcutaneou mL) s pen Give s pen Give subcutaneo 100 units 100 units us pen in AM and in AM and Give 100 increase as increase as units in directed: directed: AM and TDD 130 TDD 130 increase as directed: TDD 130 Trulicity 3 Trulicity 3 No Trulicity [facility] mg/0.5 mL mg/0.5 mL 3 mg/0.5 F amily subcutaneou subcutaneou mL P ractic s pen s pen subcutaneo e injector injector us pen Inject 3 mg Inject 3 mg injector every week every week Inject 3 by by mg every subcutaneou subcutaneou week by s route as s route as subcutaneo directed directed us route for 90 for 90 as days. days. directed for 90 days. Immunizations Ordered Immunization Filled Immunization Date Status Commen ts Source Name Name Non-US Vaccine Non-US Vaccine 2020-10-21 Completed [facility] COVID-19 PS COVID-19 PS 00:00:00 Practice (EpiVacCorona) (EpiVacCorona) Non-US Vaccine Non-US Vaccine 2020-09-21 Completed [facility] COVID-19 PS COVID-19 PS 00:00:00 Practice (EpiVacCorona) (EpiVacCorona) tetanus toxoid, tetanus toxoid, 2014-11-02 Completed Vill [facility] Family adsorbed adsorbed 00:00:00 Practice Vital Signs Vital Name Observation Time Observation Value Comments Source WEIGHT 2021-05-30 06:36:00 126.4 kg HEIGHT 2021-05-30 06:36:00 177.8 cm HEIGHT 2021-05-21 10:26:00 177.8 cm WEIGHT 2021-05-21 10:26:00 126.1 kg BP Diastolic 2022-01-27 00:00:00 80 mm[Hg] [facility] Height 2022-01-27 00:00:00 70 [in_i] [facility] BMI (Body Mass Index) 2022-01-27 00:00:00 41.6 kg/m2 [facility] BP Systolic 2022-01-27 00:00:00 137 mm[Hg] [facility] Body Weight 2022-01-27 00:00:00 290 [lb_av] [facility] Height 2021-07-11 00:00:00 70 [in_i] [facility] BMI (Body Mass Index) 2021-07-11 00:00:00 39.7 kg/m2 [facility] Body Weight 2021-07-11 00:00:00 276.6 [lb_av] [facility] WEIGHT 2021-05-30 06:36:00 126.4 kg HEIGHT 2021-05-30 06:36:00 177.8 cm HEIGHT 2021-05-21 10:26:00 177.8 cm WEIGHT 2021-05-21 10:26:00 126.1 kg BP Diastolic 2021-04-23 00:00:00 74 mm[Hg] [facility] Height 2021-04-23 00:00:00 70 [in_i] [facility] BMI (Body Mass Index) 2021-04-23 00:00:00 40.5 kg/m2 [facility] BP Systolic 2021-04-23 00:00:00 119 mm[Hg] [facility] Body Weight 2021-04-23 00:00:00 282.4 [lb_av] [facility] BP Diastolic 2021-01-02 00:00:00 87 mm[Hg] [facility] Height 2021-01-02 00:00:00 70 [in_i] [facility] BMI (Body Mass Index) 2021-01-02 00:00:00 39.5 kg/m2 [facility] BP Systolic 2021-01-02 00:00:00 147 mm[Hg] [facility] Body Weight 2021-01-02 00:00:00 275 [lb_av] [facility] BP Diastolic 2020-10-10 00:00:00 98 mm[Hg] [facility] Height 2020-10-10 00:00:00 70 [in_i] [facility] BMI (Body Mass Index) 2020-10-10 00:00:00 39 kg/m2 [facility] BP Systolic 2020-10-10 00:00:00 138 mm[Hg] [facility] Body Weight 2020-10-10 00:00:00 272 [lb_av] [facility] Systolic blood 2021-02-07 14:34:00 141 mm[Hg] pressure Diastolic blood 2021-02-07 14:34:00 94 mm[Hg] MD Yani elizondoson pressure Heart rate 2021-02-07 14:34:00 95 /min MD Huber son Respiratory rate 2021-02-07 14:34:00 16 /min MD Greene nderson Oxygen saturation in 2021-02-07 14:34:00 100 /min MD So Arterial blood by Pulse oximetry Procedures Procedure Date / Time Performed Performing Clinician Sourc e MRI PELVIS W WO CONTRAST 2021-02-07 14:17:07 Shayla Arreaga MD PROSTATE Plan of Care Planned Activity Planned Date Details Comments Source Diagnostic Test 2022-01-27 glucose, fingerstick, Nataly mora Family Pending 00:00:00 blood [code = Practice glucose, fingerstick, blood] Diagnostic Test 2022-01-27 hemoglobin A1C, [facility] Bria morales Pending 00:00:00 fingerstick [code = Practice hemoglobin A1C, fingerstick] Future Scheduled Test 1966 COVID-19 Vaccination MD So 00:00:00 (1) [code = COVID-19 Vaccination (1)] Future Appointment 2022-04-29 Luis Vega, Quyen [facility] Family 00:00:[address] Practice [address], [place] [address] Future Appointment 2022-04-28 Quyen Kohler [facility] 11:00:[address]; Practice [address], [place] [address] Encounters Start End Encounter Admission Attending Care Care Encounter Source Date/Time Date/Time Type Type Clinicians Facility Department ID 2021-11-27 Outpatient [place], [facility] [id number] [facility] 13:21:10 Anshu [id number] [facility] 2021-11-27 Outpatient [place], [facility]LMLC [facility] [id number] 13:13:58 Anshu [id number] [facility] 2021-11-27 Outpatient [place], [facility]LMLC [facility] [id number] [facility] 13:06:30 Anshu [id number] [facility] 2021-11-27 Outpatient [place], [facility]LMLC [facility] [id number] 13:00:38 Anshu [id number] [facility] 2021-11-27 Outpatient [place], [facility]LMLC [facility] [id number] 12:08:29 Anshu [id number] [facility] 2021-08-11 Inpatient WELSH, [facility] Surgery [id number] [facility] 03:16:51 AYAN 2021-01-04 Outpatient [facility], [facility] [id number] 07:53:56 PROVIDER Angel davis 2022-01-30 2022-01-30 Outpatient Gary_T VFP [facility] [id number] [facility] 08:56:00 08:56:00 [id number] Family Practic e 2022-01-27 2022-01-27 Outpatient Gary_T VFP [facility] [id number] [facility] 06:11:00 06:11:00 [id number] Family Practic e 2022-01-27 2022-01-27 Luis [facility] [place] - [id number] V illage 00:00:00 00:00:00 [facility] Family GaryAnanth - Pracabilio conde MD: [id number] ALLEN_ROXANA_Shad e Shadow [address], [place] [address] , Ph. 2021-12-11 2021-12-11 ambulatory [facility] [id number] [facility] 2021-10-28 2021-10-28 ambulatory [facility]ML[facility] [id number] [facility] 2021-10-10 2021-10-10 ambulatory [facility] [id number] [facility] 2021-10-01 2021-10-01 ambulatory [facility] [id number] [facility] 2021-09-05 2021-09-05 ambulatory [facility] [id number] [facility] 2021-08-19 2021-08-19 Outpatient Daniel_T VFP VFP [id number] [facility] 11:24:00 11:24:00 [id number] Family Practic e 2021-08-19 2021-08-19 Outpatient Daniel_T VFP VFP [id number] [id number] [facility] 11:24:00 11:24:00 [id number] Family Practic e 2021-08-19 2021-08-19 Outpatient Daniel_T VFP VFP [id number] [facility] 11:24:00 11:24:00 [id number] Family Practic e 2021-08-09 2021-08-09 Outpatient [facility] [id number] [facility] 2021-07-26 2021-07-26 Outpatient Daniel_T VFP VFP [id number] [facility] 04:29:00 04:29:00 [id number] Family Practic e 2021-07-24 2021-07-24 Outpatient [facility] [id number] [facility] 2021-07-16 2021-07-16 Outpatient Daniel_T VFP VFP [id number] [id number] [facility] 06:34:00 06:34:00 [id number] Family Practic e 2021-07-11 2021-07-11 Outpatient Ignacioel_T VFP VFP [id number] Village 10:34:00 10:34:00 [id number] Family Practic e 2021-07-11 2021-07-11 Luis VFP [place] - [id number] V illage 00:00:00 00:00:00 [facility] Vega, Medical - Practi elton PANTOJA: [id number] VM_ROXANA_Juan Francisco e Shadow [facility], [address], [place] [address] , Ph. 2021-06-13 2021-06-13 Outpatient [facility] [id number] [facility] 2021-06-07 2021-06-07 Outpatient [facility] [id number] [facility] 2021-05-28 2021-05-28 Outpatient [facility] [id number] [facility] 2021-05-23 2021-05-23 Outpatient [facility] [id number] [facility] 2021-05-21 2021-05-21 Outpatient EL [facility] [id number] [facility] 00:00:00 00:00:00 2021-05-21 2021-05-21 Outpatient [facility] [id number] [facility] 2021-05-20 2021-05-20 Outpatient [facility] [id number] [facility] 2021-05-13 2021-05-13 [facility] [id number] [facility] 2021-05-02 2021-05-02 Outpatient [facility] [id number] [facility] 2021-04-25 2021-04-25 Outpatient Daniel_T VFP VFP [id number] [facility] 08:18:00 08:18:00 [id number] Family Practic e 2021-04-25 2021-04-25 Outpatient Daniel_T VFP VFP [id number] [facility] 08:18:00 08:18:00 [id number] Family Practic e 2021-04-24 2021-04-24 Outpatient Daniel_T VFP VFP [id number] [facility] 10:46:00 10:46:00 [id number] Family Practic e 2021-04-23 2021-04-23 Outpatient Daniel_T VFP VFP [id number] [facility] 06:26:00 06:26:00 [id number] Family Practic e 2021-04-23 2021-04-23 Luis VFP [place] - [id number] V illage 00:00:00 00:00:00 [facility] Family VegaAnanth - Pracabilio conde MD: [id number] VM_HOU_Shad e [facility], [address], [place] [address] , Ph. 2021-04-11 2021-04-11 [facility] [id number] 2021-04-02 2021-04-02 Out[facility] [id number] [facility] 2021-03-20 2021-03-20 [facility]patient [facility] [id number] [facility] 2021-03-12 2021-03-12 Outpatient [facility] [id number] [facility] 2021-03-11 2021-03-11 Outpatient [facility] [id number] [facility] 2021-03-08 2021-03-08 Outpatient [facility] [id number] [facility] 2021-03-08 2021-03-08 Outpatient [facility] [id number] [facility] 2021-03-08 2021-03-08 Outpatient [facility] [id number] [facility] 2021-03-08 2021-03-08 Outpatient [facility] [id number] [facility] 2021-03-01 2021-03-01 Outpatient [facility] [id number] [facility] 2021-01-21 2021-01-21 Outpatient Daniel_T VFP VFP [id number] [facility] 08:21:00 08:21:00 [id number] Family Practic e 2021-01-04 2021-01-04 Outpatient Daniel_T VFP VFP [id number] Village 01:28:00 01:28:00 [id number] Family Practic e 2021-01-02 2021-01-02 Outpatient Daniel_T VFP VFP [id number] [facility] 11:37:00 11:37:00 [id number] Family Practic e 2021-01-02 2021-01-02 Luis VFP [place] - [id number] V illage 00:00:00 00:00:00 [facility] VegaAnanth - Elizabeth conde MD: [id number] VM_HOU_Juan Francisco e Shadow ow [facility], [address], [place] [address] , Ph. 2021-01-02 2021-01-02 Outpatient [facility] [id number] [facility] [facility] 2020-12-13 2020-12-13 Outpatient [facility]ML[facility] [id number] [facility] 2020-12-03 2020-12-03 Outpatient [facility] [id number] [facility] 2020-11-17 2020-11-17 Outpatient Daniel_T VFP VFP [id number] [id number] [facility] 01:27:00 01:27:00 [id number] Family Practic e 2020-11-14 2020-11-14 Outpatient [facility]MLC [facility] [id number] [facility] 2020-11-07 2020-11-07 Outpatient [facility] [id number] [facility] 2020-11-07 2020-11-07 Outpatient [facility]MLC [facility] [id number] [facility] 2020-10-16 2020-10-16 Outpatient Daniel_T VFP VFP [id number] [facility] 06:20:00 06:20:00 [id number] Family Practic e 2020-10-10 2020-10-10 Outpatient Daniel_T VFP VFP [id number] [id number] [facility] 12:24:00 12:24:00 [id number] Family Practic e 2020-10-10 2020-10-10 Luis VFP [place] - [id number] [facility] 00:00:00 00:00:00 [facility] Family VegaAnanth - Elizabeth conde MD: [id number] VM_HOU_Ignacio okeefe [address] [address] , Ph. 2020-10-09 2020-10-09 Outpatient Daniel_T VFP VFP [id number] [id number] [facility] 05:40:00 05:40:00 Family Practic e 2020-09-26 2020-09-26 [facility] [id number] 2020-09-18 2020-09-18 Outpatient Daniel_T VFP VFP [id number] [id number] [facility] 11:12:00 11:12:00 [id number] Family Practic e 2020-08-23 2020-08-23 Outpatient Daniel_T VFP VFP [id number] [id number] [facility] 10:14:00 10:14:00 [id number] Family Practic e 2020-07-04 2020-07-04 Outpatient Daniel_T VFP VFP [id number] [id number] [facility] 10:46:00 10:46:00 [id number] Family Practic e 2020-05-04 2020-05-04 Telephone SHIRA Velázquez [id number] [facility] 00:00:00 00:00:00 David Branden HARJEET [id number] i [facility] [id number] Evan as [id number] [address] 2020-05-04 2020-05-04 Telephone SHIRA Velázquez [id number] 00:00:00 00:00:00 David H HARJEET [id number] [facility] [id number] 2020-05-03 2020-05-03 Laboratory Lab, [facility] Fam Pob I [facility] [id number] [facility] 08:08:53 08:28:53 Only Susanne, Sherry [facility] [id number] [facility] [place] [id number] Evan as Professio [id number] Ny dical [facility] [address] 2020-05-03 2020-05-03 Laboratory Lab, [facility] [id number] 08:08:53 08:28:53 Only Fam Pob I Health [id number] [place] 4.2.7.2.686 Professio [phone] nal [address] 2020-05-03 2020-05-03 Outpatient R [facility] [id number] [facility] 08:00:00 08:00:[address] [facility] Results Test Description Test Time Test Comments Results Result Comments Source Glucose [Mass/volume] in Capillary blood 2022-01-27 15:50:10 Test Item Value Reference Range Interpretation Comme nts Blood Glucose: mg/dl (test code = Blood Glucose: mg/dl) 279 [facility] [id number] 15:49:57 Test Item Value Reference Range Interpretation Comments Hemoglobin A1C Fingerstick: (test code 8.4 = Hemoglobin A1C Fingerstick:) [facility] [id number] 17:14:00Surgical Pathology Report Case: [id number] Aut horizing Provider: Ayan Welsh MD Collected: 05/30/2021 01:42 PM Ordering Location: [facility] PERIOPERATIVE Received: 05/31/2021 09:21 AM SERVICES Pathologist: Bernadine Christie MD Specimens: A) -Prostate, PROSTATE AND SEMINAL VESICLES B) - Lymph Node, ANTERIOR PERIPROSTATIC LYMPH NODE A. PROSTATE, ROBOTIC ASSISTED LAPAROSCOPIC RADICAL PROSTATECTOMY:- ADENOCARCINOMA, EVY 3+4=7, ORGAN CONFINED, SURGICAL MARGINS NEGATIVE SEMINAL VESICLES, ROBOTIC ASSISTED LAPAROSCOPIC RADICAL PROSTATECTOMY:- NO PATHOLOGIC DIAGNOSISB. SOFT TISSUE, LABELED "LYMPH NODES, ANTERIOR PERIPROSTATIC", EXCISION:- BENIGN FIBROADIPOSE TISSUE- NO LYMPHOID TISSUE IDENTIFIED Signing Pathologist Direct Phone Line: [phone] signed by Bernadine Christie MD on 06/10/2021 at 5:14 PMThe 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 All tumor is confined to the prostate and the surgical margins and seminal vesicles are negative. Purvis pattern 4 represents no more than 10% of the total tumor mass. PROSTATE GLAND: Radical Prostatectomy (PROSTATE GLAND: RADICAL PROSTATECTOMY - All Specimens)8th Edition - Protocol posted: 12/28/2019SPECIMEN Procedure: Radical prostatectomy Prostate Size: Prostate Weight (g): 39.2 g Prostate Greatest Dimension (Centimeters): 4 cm Additional Dimension (Centimeters): 3.1 cm Additional Dimension (Centimeters): 3 cmTUMOR Histologic Type: Acinar adenocarcinoma Histologic Grade: Grade Group and Purvis Score: Grade group 2 (Purvis Score 3 + 4 = 7) Percentage of Pattern 4: 10 % Intraductal Carcinoma (IDC): Not identified Tumor Quantitation: Estimated percentage of prostate involved by tumor: 40 % Extraprostatic Extension (EPE): Not identified Urinary Bladder Neck Invasion: Not identified Seminal Vesicle Invasion: Not identified Treatment Effect: No known presurgical therapy Lymphovascular Invasion: Not Identified Perineural Invasion: Present MARGINS Margins: Uninvolved by invasive carcinoma LYMPH NODES Regional Lymph Nodes: No lymph nodes submitted or found PATHOLOGIC STAGE CLASSIFICATION (pTNM, AJCC 8th Edition) Primary Tumor (pT): pT2 Regional Lymph Nodes (pN): pNX ADDITIONAL FINDINGS Additional Findings: High-grade prostatic intraepithelial neoplasia (PIN) Additional Findings: Nodular prostatic hyperplasia 69632, 54697Yemiwpts can cerA. ProstateB. Lymph node, anterior periprostatic lymph nodeA: Received is a radical prostatectomyspecimen in formalin with the patient's name (Luiz Chau) with accession number [id number] and is a prostate with bilateral seminal vesicles and vas deferentia.The prostate weighs 39.2 gm and measures 3.1 cm apex to base, 4.0 cm transversely and 3.0 cm anterior to posterior. The right and left seminal vesicles measure 2.0 x 2.0 x 1.0 cm and 2.0 x 1.5 x 1.0 cm respectively. The right and left vasa deferentia measure 7.5 cm and 4.5 cm in length respectively and 0.5 cm in diameter. The capsular surface of the prostate is purple-warner to red, dusky, and focally ragged. Ink code: Right side-inked in black, left side-inked in blue. The prostate is serially sectioned from apex to base in entirety, and the sections reveals pink-warner to kaur-white, homogeneous, focally nodular prostatic parenchyma throughout. No discrete masses are identified.The sectioning of the seminal vesicles reveals a pink-warner un remarkable cut surface. The total number of slices including seminal vesicles and vas deferentia are 10. Section code: Apical margins are submitted in cassette A1, bladder neck margins are submitted in cassette A2, and the prostate slices are submitted in cassettes A3-A8.The right and left seminal vesicles at the base of the prostate are submitted in cassette A9, the seminal vesicle tips along with the vas deferentia are submitted in cassette A10. SDH/ewB. Received fresh labeled with the patient's name, medical record number and "lymph node" is a 5.5 x 3.7 x 1.2 cm irregular portion of adipose tissue. The specimen is serially sectioned to reveal a 0.5 cm possible, mostly fat replaced lymph node. Specimen is entirely submitted.Section code:B1: 1 possible intact lymph nodeB2- B9: Remainder of specimenCheTANA Muir, SCOTT (ASCP)cmPerformed.[facility], Department of Pathology, [address] [place] [address], [facility], [facility] of Pathology, [address] [place] [address], [facility], Department of Pathology, [address] [place] [address], XRBS-GLUCOSE [id number] 08:02:00 Test Item Value Reference Range Interpretation Comments POC-GLUCOSE METER 104 mg/dL 70-110 : TESTED A T [facility] 6720 (BEAKER) (test code = GAMA R [facility], 1538) [address]4060: Math Teacher/Techni sherita ID = [id number] for ME SWEETEULALIO ARRINGTON HEMOGLOBIN AND [id number] 06:45:00 Test Item Value Reference Range Interpretation Comments HEMOGLOBIN (BEAKER) (test code = 10.8 GM/DL 13.7-17.5 L 410) HEMATOCRIT (BEAKER) (test code = 34.5 % 40.1-51.0 L 411) Math [facility] - [id number] [id number] 06:44:00 Test Item Value Reference Range Interpretation Comments SODIUM (BEAKER) 138 meq/L 136-145 (test code = 381) POTASSIUM (BEAKER) 4.0 meq/L 3.5-5.1 (test code = 379) CHLORIDE (BEAKER) 111 meq/L 98-107 H (test code = 382) CO2 (BEAKER) (test 19 meq/L 22-29 L code = 355) BLOOD UREA NITROGEN 10 mg/dL 7-21 (BEAKER) (test code = 354) CREATININE (BEAKER) 0.84 mg/dL 0.57-1.25 (test code = 358) GLUCOSE RANDOM 113 mg/dL 70-105 H (BEAKER) (test code = 652) CALCIUM (BEAKER) 8.1 mg/dL 8.4-10.2 L (test code = 697) EGFR (BEAKER) (test 113 mL/min/1.73 ESTIM ATED GFR IS code = 1092) sq m NOT ACCURATE CREATININE CLEARANCE IN PREDICTING GLOMERULAR FILTRATION RATE . ESTIMATED GFR I S NOT APPLICABLE FOR DIALYSIS PATIEN TS. Math Teacher ID - CARLOS MPOCT-GLUCOSE [id number] 22:53:00 Test Item Value Reference Range Interpretation Comments POC-GLUCOSE METER 210 mg/dL 70-110 H : TESTED A T [facility] 6720 (Coquelux) (test code = [facility], 153) 64269: Math Teacher/Techni sherita ID = [id number] for ON UOHA, FABIÁN POCT-GLUCOSE [id number] 16:54:00 Test Item Value Reference Range Interpretation Comments POC-GLUCOSE METER 181 mg/dL 70-110 H : TESTED A T [facility] 6720 (Coquelux) (test code = [facility], 1538) 32014: Math Teacher/Techni sherita ID = [id number] for DA VIS, KEYAIRA POCT-GLUCOSE [id number] 11:24:00 Test Item Value Reference Range Interpretation Comments POC-GLUCOSE METER 140 mg/dL 70-110 H : TESTED A T [facility] 6720 (Coquelux) (test code [facility], = 1538) 06246: Math Teacher/Techni sherita ID = [id number] for JAIM E MAGGIE, TENZIN POCT-GLUCOSE [id number] 10:12:00 Test Item Value Reference Range Interpretation Comments POC-GLUCOSE METER 88 mg/dL 70-110 : TESTED A T [facility] 6720 (Coquelux) (test code = [facility], 1538) 03858: Math Teacher/Techni sherita ID = [id number] for JAIM E MAGGIE, TENZIN POCT-GLUCOSE [id number] 07:48:00 Test Item Value Reference Range Interpretation Comments POC-GLUCOSE METER 74 mg/dL 70-110 : TESTED A T [facility] 6720 (Coquelux) (test code = [facility], 1538) 44430: Math Teacher/Techni sherita ID = [id number] for TENZIN VILLASENOR BASIC METABOLIC [id number] 05:47:00 Test Item Value Reference Range Interpretation Comments SODIUM (BEAKER) 138 meq/L 136-145 (test code = 381) POTASSIUM (BEAKER) 4.1 meq/L 3.5-5.1 (test code = 379) CHLORIDE (BEAKER) 110 meq/L 98-107 H (test code = 382) CO2 (BEAKER) (test 20 meq/L 22-29 L code = 355) BLOOD UREA NITROGEN 10 mg/dL 7-21 (BEAKER) (test code = 354) CREATININE (BEAKER) 0.94 mg/dL 0.57-1.25 (test code = 358) GLUCOSE RANDOM 119 mg/dL 70-105 H (BEAKER) (test code = 652) CALCIUM (BEAKER) 8.6 mg/dL 8.4-10.2 (test code = 697) EGFR (BEAKER) (test 99 mL/min/1.73 ESTIMA MARGIE GFR IS code = 1092) sq m NOT ACCURATE CREATININE CLEARANCE IN PREDICTING GLOMERULAR FILTRATION RATE . ESTIMATED GFR I S NOT APPLICABLE FOR DIALYSIS PATIEN TS. Math Teacher ID - CARLOS MHEMOGLOBIN AND [id number] 05:04:00 Test Item Value Reference Range Interpretation Comments HEMOGLOBIN (BEAKER) (test code = 11.2 GM/DL 13.7-17.5 L 410) HEMATOCRIT (BEAKER) (test code = 35.3 % 40.1-51.0 L 411) Math Teacher ID - [id number]-GLUCOSE [id number] 21:14:00 Test Item Value Reference Range Interpretation Comments POC-GLUCOSE METER 218 mg/dL 70-110 H : [facility] (BEAKER) (test code = [facility], 1538) 63337: Math Teacher/Techni sherita ID = [id number] for NADIRA JACKSON BASIC METABOLIC [id number] 16:06:00 Test Item Value Reference Range Interpretation Comments SODIUM (BEAKER) 138 meq/L 136-145 (test code = 381) POTASSIUM (BEAKER) 4.3 meq/L 3.5-5.1 (test code = 379) CHLORIDE (BEAKER) 109 meq/L 98-107 H (test code = 382) CO2 (BEAKER) (test 21 meq/L 22-29 L code = 355) BLOOD UREA NITROGEN 11 mg/dL 7-21 (BEAKER) (test code = 354) CREATININE (BEAKER) 1.06 mg/dL 0.57-1.25 (test code = 358) GLUCOSE RANDOM 208 mg/dL 70-105 H (BEAKER) (test code = 652) CALCIUM (BEAKER) 8.3 mg/dL 8.4-10.2 L (test code = 697) EGFR (BEAKER) (test 86 mL/min/1.73 ESTIMA MARGIE GFR IS code = 1092) sq m NOT ACCURATE CREATININE CLEARANCE IN PREDICTING GLOMERULAR FILTRATION RATE . ESTIMATED GFR I S NOT APPLICABLE FOR DIALYSIS PATIEN TS. Math Teacher ID - DBHEMOGLOBIN AND [id number] 15:44:00 Test Item Value Reference Range Interpretation Comments HEMOGLOBIN (BEAKER) (test code = 12.0 GM/DL 13.7-17.5 L 410) HEMATOCRIT (BEAKER) (test code = 38.1 % 40.1-51.0 L 411) Math Teacher ID - [id number]-GLUCOSE [id number] 15:13:00 Test Item Value Reference Range Interpretation Comments POC-GLUCOSE METER 201 mg/dL 70-110 H : TESTED A T [facility] 6720 (BEAKER) (test code = [facility] [employer] [facility], 153) 53518: Math Teacher/Techni sherita ID = [id number] for BERANDINE GOODWIN POCT-GLUCOSE [id number] 07:13:00 Test Item Value Reference Range Interpretation Comments POC-GLUCOSE METER 98 mg/dL 70-110 : TESTED A T [facility] 6720 (BEAKER) (test code = [facility], 1538) 17883: Math Teacher/Techni sherita ID = [id number] for NENO RAMEY PH
--- OUTSIDE RECORDS SUMMARY | 2022-02-05 22:51 | XMS REPORT | Clinical Summary ---
:1960 Author Organization [facility] MD [facility] Center Address [address] [place] [address] Care Team Providers Name Role Phone MD Truman Primary Care Provider Allergies No known active allergies Medications Medication Sig Dispensed Refills Start Date End Date Status empagliflozin-metformin Take 2 tablets by 0 Active (Synjardy XR) mouth daily. 12.5-1,000 mg TBph losartan (COZAAR) 100 Take 1 tablet by 0 10/17/2019 Active mg tablet mouth daily. metoprolol succinate Take 1 tablet by 0 01/16/2021 Active (TOPROL XL) 200 mg 24 mouth daily. hr tablet rosuvastatin (CRESTOR) Take 1 tablet by 0 01/02/2021 Active 10 mg tablet mouth daily. tamsulosin (FLOMAX) 0.4 Take 1 capsule by 0 09/27/20 20 Active mg 24 hr capsule mouth daily. sildenafil (VIAGRA) 100 Take 1 tablet by 0 0 Active MG tablet mouth as needed. Tresiba FlexTouch U-200 Inject 3 mL under 0 01/03/20 21 Active 200 unit/mL (3 mL) the skin as insulin pen needed. Trulicity 1.5 mg/0.5 mL Inject 3 mg under 0 11/30/19 Active injection the skin once a week. aspirin 81 mg EC tablet Take 1 tablet by 0 Active mouth daily. diazePAM (Valium) 10 mg Take 1 tablet (10 1 tablet 0 02/06/20 Active tabletIndications: mg) by mouth once Adenocarcinoma of as needed for prostate sedation for up to 1 dose. 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 Coronary arteriosclerosis 12/20/2019 Hypertension 02/23/2019 Carcinoma of prostate 02/23/2019 Cancer Staging: Clinical stage from 2020: Stage Unknown (cT1c, cNX, PSA: 5.3, Grade Group: 2) - Signed by Jose Enrique Laughlin MD on 01/31/2021 Morbid obesity 02/23/2019 Herpes zoster 11/02/2018 Hypotestosteronism 01/30/2012 Male erectile dysfunction 08/09/2010 Diabetes mellitus 11/02/2008 Overview: Currently managed with insulin Morbid (severe) obesity due to excess calories 001 Encounters Date Type Specialty Care Team Description 12/02/2021 Telephone Urology Dian Peña PA 05/01/2021 Telephone Urology Luis Manuel Camarena RN 05/01/2021 Orders Only Urology Luis Manuel Camarena RN 02/08/2021 Orders Only Jordon Haley MD SARS-CoV -2 vaccination 02/07/2021 Nutrition Nutrition Jose Enrique Laughlin, Adenocarci noma of prostate Katelyn Stephenson, RD 02/07/2021 Ancillary Procedure Radiology Jose Enrique Laughlin Ade nocarcinoma of prostate 02/07/2021 Travel 02/05/2021 Orders Only Urology Dian Peña PA Adenocarc inoma of prostate (Prima ry Dx) after 02/05/2021 Surgical History Surgery Date Site/Laterality Comments HEMORRHOID SURGERY 11/02/2004 - 11/01/2005 CARDIAC CATHETERIZATION 11/02/2004 - 11/01/2005 KNEE SURGERY 11/02/2000 - 11/01/2001 Medical History Medical History Date Comments Hypertension 2009 Hyperlipidemia 2009 Diabetes mellitus 2008 Currently managed insulin Herpes zoster 2018 Morbid (severe) obesity due to excess 2001 Gigi dodd currently weighs around 277 calories pounds. Patient sta mary kate that his weight began to incr ease after he was 41 years of age Family History Medical History Relation Name Comments -Other cancer Father O D Wallace Esophageal cance r Brain cancer Father Kenna Wallace Lung cancer Father Kenna Wallace Prostate cancer Father Kenna Wallace Relation Name Status Comments Father Kenna Wallace Social History Tobacco Use Types Packs/Day Years Used Date Never Smoker 0 0 Smokeless Tobacco: Never Used Alcohol Use Standard Drinks/Week Comments Yes 1 (1 standard drink = 0.6 oz pure alcoho l) Sex Assigned at Date Recorded Not on file Job Start Date Occupation Industry Not on file Not on file Not on file Obstetrics History Last Filed Vital Signs Vital Sign Reading Time Taken Comments Blood Pressure 141/94 02/07/2021 9:34 AM CDT Pulse 95 02/07/2021 9:34 AM CDT Temperature - - Respiratory Rate 16 02/07/2021 9:34 AM CDT Oxygen Saturation 100% 02/07/2021 9:34 AM CDT Inhaled Oxygen Concentration - - Weight - - Height - - Body Mass Index - - Plan of Treatment Health Maintenance Due Date Last Done Comments COVID-19 Vaccination (1) 1965 Procedures Procedure Name Priority Date/Time Associated Diagnosis Comme nts MRI PELVIS W WO Routine 02/07/2021 9:17 Adenocarcinoma of Res ults for this CONTRAST PROSTATE AM CDT prostate procedure are in the results section. after 02/05/2021 Results MRI Pelvis with and without Contrast - Prostate (02/07/2021 9:17 AM CDT) Anatomical Region Laterality Modality Pelvis Magnetic Resonance Specimen Impressions [id number] - 02/07/2021 5:18 PM CDT A PI-RADS 4 lesion in the left anterior transition zone at the mid gland. Possible additional lesion in the left apex, not well evaluated due to degraded image quality. No evidence of extraprostatic disease. Narrative [id number] - 02/07/2021 5:18 PM CDT FULL RESULT: Examination: MRI PELVIS W WO CONTRAST LA OSTATE on 02/07/2021 9:17 AM Comparison prostate MRI: None. Prior therapy: none PSA: 5.7 ng/mL. Ashlie score: 3+4. Clinical history: Adenocarcinoma of pros morrissey. . Indication: Prostate cancer staging. Technique: Prostate MRI acquired at 1.5 Elis with an endorectal coil. Three- plane localizer, axial T1W and axial DWI of the pelvis were performed. Three plane T2W, axial T1W, axial DWI with ADC recon struction of the prostate were acquired. Axial dynamic contrast enhanced sequence was performed with a focus on the prostate. Motion artifact: Mild Findings: Prostate measurement (3-plane): 4.1 cm t ransverse x 3 cm AP x 4.1 craniocaudal dimension. Hemorrhage: Moderate Benign prostatic hypertrophy: Mild Lesion #1 measures 1.1 cm and is located in the left transitional zone at the level of the mid gland on: Image # 57, series 850. Location: 1 o'clock PI-RADS Score: 4 There is vague restricted diffusion in t he left apex (series 850 image 62). This is not well evaluated due to image artifact. An additional focus of prostate carcinoma is possible (PI-RADS 3). Extra-prostatic extension (EPE): not fou nd. Neurovascular bundle invasion (NVB): Not found. Seminal vesicle invasion (SVI): Not foun d. No clear involvement of the bladder neck , distal sphincter, or rectum. Lymphadenopathy: Small external iliac ly mph nodes are present, for example a 1 cm right external iliac lymph node (5/30), nonspecific. No suspect osseous lesions. Procedure Note Amisha Lockwood MD - 02/07/2021 FULL RESULT: Examination: MRI PELVIS W WO CONTRAST LA OSTATE on 02/07/2021 9:17 AM Comparison prostate MRI: None. Prior therapy: none PSA: 5.7 ng/mL. Grady score: 3+4. Clinical history: Adenocarcinoma of pros morrissey. . Indication: Prostate cancer staging. Technique: Prostate MRI acquired at 1.5 Elis with an endorectal coil. Three- plane localizer, axial T1W and axial DWI of the pelvis were performed. Three plane T2W, axial T1W, axial DWI with ADC reconstruction of the prostate were acquired. Axial dyn amic contrast enhanced sequence was performed with a focus on the prostate. Motion artifact: Mild Findings: Prostate measurement (3-plane): 4.1 cm t ransverse x 3 cm AP x 4.1 craniocaudal dimension. Hemorrhage: Moderate Benign prostatic hypertrophy: Mild Lesion #1 measures 1.1 cm and is located in the left transitional zone at the level of the mid gland on: Image # 57, series 850. Location: 1 o'clock PI-RADS Score: 4 There is vague restricted diffusion in t he left apex (series 850 image 62). This is not well evaluated due to image artifact. An additional focus of prostate carcinoma is possible (PI-RADS 3). Extra-prostatic extension (EPE): not fou nd. Neurovascular bundle invasion (NVB): Not found. Seminal vesicle invasion (SVI): Not foun d. No clear involvement of the bladder neck , distal sphincter, or rectum. Lymphadenopathy: Small external iliac ly mph nodes are present, for example a 1 cm right external iliac lymph node (03/31), nonspecific. No suspect osseous lesions. IMPRESSION: A PI-RADS 4 lesion in the left anterior transition zone at the mid gland. Possible additional lesion in the left apex, not well evaluated due to degraded image quality. No evidence of extraprostatic disease. Performing Organization Address City/State/ZIP Code Phon e Number [id number] after 02/05/2021 Insurance Payer Benefit Plan / Subscriber ID Effective Dates Phone Addre ss Type Group [employer]ETNA MANAGED AETNA O [id number] 2011-Shirlene BLUE X [id number] [facility] [place] [address] Care Teams Fuel Cell Battery Technician Relationship Specialty Start Date End Date Jose Enrique Laughlin MD PCP - General Urology 01/04/[address] [place] [id number]
[2022-02-06] MEDS ORDERED: NA CHLORIDE 0.9% 1,000 ML ONE ×2 (00:37→08:39)
--- NOTE | 2022-02-06 00:54 | EDPHYS ---
Physician Documentation [facility] Name: Reji Wallace Age: 61 yrs Sex: Male : 1960 Arrival Date: 02/05/2022 Time: 22:49 Bed 14 Private MD: DANAE Physician Roberto So HPI: 02/06 00:47 This 61 yrs old Black Male presents to ER via Ambulatory with complaints of Nausea, coby Diarrhea, Low Blood Sugar, CHILLS. 00:47 The patient presents to the emergency department with nausea, vomiting. Onset: The coby symptoms/episode began/occurred just prior to arrival. Possible causes: hypoglycemia. The symptoms are aggravated by nothing. The symptoms are alleviated by nothing. Associated signs and symptoms: The patient has no apparent associated signs or symptoms. Severity of symptoms: At their worst the symptoms were mild in the emergency department the symptoms have improved mildly. The patient has experienced similar episodes in the past, multiple times. Historical: - Allergies: 02/05 22:58 No Known Allergies; ld1 - PMHx: 22:58 Diabetes - NIDDM; High Cholesterol; Hypertension; Prostate Cancer; ld1 - PSHx: 22:58 None; ld1 - Immunization history:: Adult Immunizations up to date, Client reports receiving the 2nd dose of the Covid vaccine. - Social history:: Smoking status: Patient denies any tobacco usage or history of. Patient uses alcohol, occasionally. - Family history:: not pertinent. ROS: 02/06 00:47 Constitutional: Negative for fever, chills, and weight loss, Eyes: Negative for injury, coby pain, redness, and discharge, ENT: Negative for injury, pain, and discharge, Neck: Negative for injury, pain, and swelling, Cardiovascular: Negative for chest pain, palpitations, and edema, Respiratory: Negative for shortness of breath, cough, wheezing, and pleuritic chest pain, Back: Negative for injury and pain, : Negative for injury, bleeding, discharge, and swelling, MS/Extremity: Negative for injury and deformity, Skin: Negative for injury, rash, and discoloration, Neuro: Negative for headache, weakness, numbness, tingling, and seizure, Psych: Negative for depression, anxiety, suicide ideation, homicidal ideation, and hallucinations, Allergy/Immunology: Negative for hives, rash, and allergies, Endocrine: Negative for neck swelling, polydipsia, polyuria, polyphagia, and marked weight changes. Abdomen/GI: Positive for nausea and vomiting. Exam: 00:47 Constitutional: This is a well developed, well nourished patient who is awake, alert, coby and in no acute distress. Head/Face: Normocephalic, atraumatic. Eyes: Pupils equal round and reactive to light, extra-ocular motions intact. Lids and lashes normal. Conjunctiva and sclera are non-icteric and not injected. Cornea within normal limits. Periorbital areas with no swelling, redness, or edema. ENT: Nares patent. No nasal discharge, no septal abnormalities noted. Tympanic membranes are normal and external auditory canals are clear. Oropharynx with no redness, swelling, or masses, exudates, or evidence of obstruction, uvula midline. Mucous membranes moist. Neck: Trachea midline, no thyromegaly or masses palpated, and no cervical lymphadenopathy. Supple, full range of motion without nuchal rigidity, or vertebral point tenderness. No Meningismus. Chest/axilla: Normal chest wall appearance and motion. Nontender with no deformity. No lesions are appreciated. Cardiovascular: Regular rate and rhythm with a normal S1 and S2. No gallops, murmurs, or rubs. Normal PMI, no JVD. No pulse deficits. Respiratory: Lungs have equal breath sounds bilaterally, clear to auscultation and percussion. No rales, rhonchi or wheezes noted. No increased work of breathing, no retractions or nasal flaring. Abdomen/GI: Soft, non-tender, with normal bowel sounds. No distension or tympany. No guarding or rebound. No evidence of tenderness throughout. Back: No spinal tenderness. No costovertebral tenderness. Full range of motion. Male : Normal genitalia with no discharge or lesions. Skin: Warm, dry with normal turgor. Normal color with no rashes, no lesions, and no evidence of cellulitis. MS/ Extremity: Pulses equal, no cyanosis. Neurovascular intact. Full, normal range of motion. Neuro: Awake and alert, GCS 15, oriented to person, place, time, and situation. Cranial nerves II-XII grossly intact. Motor strength 5/5 in all extremities. Sensory grossly intact. Cerebellar exam normal. Normal gait. Psych: Awake, alert, with orientation to person, place and time. Behavior, mood, and affect are within normal limits. 01:01 ECG was reviewed by the Attending Physician. [facility] Vital Signs: 04 22:58 BP 129 / 91; Pulse 94; Resp 18; Temp 98.0(TE); Pulse Ox 98% on R/A; Weight 131.54 kg; ld1 Height 5 ft. 10 in. (177.80 cm); Pain 0/10; 02/06 02:00 BP 130 / 84; Pulse 85; Resp 16; Pulse Ox 100% on R/A; ll3 04 22:58 Body Mass Index 41.61 (131.54 kg, 177.80 cm) ld1 MDM: 00:02 Patient medically screened. [facility] 00:50 Differential diagnosis: viral gastroenteritis, gastroenteritis. Data reviewed: vital [facility] signs, nurses notes, lab test result(s), EKG. Data interpreted: monitor car operator: rate is 94 beats/min, rhythm is regular, Pulse oximetry: on room air is 94 %. Test interpretation: by ED physician or midlevel provider: ECG. Counseling: I had a detailed discussion with the patient and/or guardian regarding: the historical points, exam findings, and any diagnostic results supporting the discharge/admit diagnosis, lab results, the need for further work-up and treatment in the hospital. 02/06 00:02 Order name: Basic Metabolic Panel [facility] 02/06 00:02 Order name: CBC with Diff; Complete Time: 04:28 [facility] 02/06 00:02 Order name: LFT's [facility] 02/06 00:02 Order name: Magnesium [facility] 02/06 00:02 Order name: NT PRO-BNP [facility] 02/06 00:02 Order name: PT-INR; Complete Time: 04:28 [facility] 02/06 00:02 Order name: Troponin HS [facility] 02/06 01:39 Order name: COVID-19/FLU A+B (Document "Date of Onset" if Symptomatic); Complete Time: mw2 04:28 02/06 06:24 Order name: Glucose, Ancillary Testing [facility] 02/06 06:53 Order name: Urine Dipstick-Ancillary EDMS 02/06 07:40 Order name: Glucose, Ancillary Testing [facility] 02/06 00:02 Order name: EKG; Complete Time: 00:03 [facility] 02/06 00:02 Order name: Cardiac monitoring; Complete Time: 00:59 coby 02/06 00:02 Order name: EKG - Nurse/Tech; Complete Time: 00:59 coby 02/06 00:02 Order name: IV Saline Lock; Complete Time: 01:37 coby 02/06 00:02 Order name: Labs collected and sent; Complete Time: 01:37 coby 02/06 00:02 Order name: O2 Per Protocol; Complete Time: 00:59 coby 02/06 00:02 Order name: O2 Sat Monitoring; Complete Time: 00:59 coby 02/06 00:02 Order name: Diet Regular; Complete Time: 00:03 coby 02/06 07:08 Order name: Diet Regular; Complete Time: 07:09 ll3 EC:01 Rate is 85 beats/min. QRS [place] is Normal. [place] interval is normal. QRS interval is coby normal. QT interval is normal. No Q waves. T waves are Normal. No ST changes noted. Clinical impression: NSR w/ Non-specific ST/T Changes and No evidence of ischemia. Interpreted by me. Reviewed by me. Administered Medications: 01:20 Drug: NS 0.9% 1000 ml Route: IV; Rate: 125 ml/hr; Site: right hand; ll3 01:36 Drug: Zofran (Ondansetron) 4 mg Route: IVP; Site: right hand; ll3 Disposition Summary: 02/06/22 00:54 Hospitalization Ordered Hospitalization Status: Observation coby Provider: Rakesh Waller cha Condition: Stable coby Problem: new coby Symptoms: have improved coby Bed/Room Type: Standard coby Location: Telemetry/MedSurg (observation)(02/06/22 10:29) Room Assignment: [facility](02/06/22 10:29) Diagnosis - Drug-induced hypoglycemia without coma coby - Diabetes mellitus due to underlying condition with hypoglycemia without coma coby - Nausea coby Forms: - Medication Reconciliation Form coby - SBAR form coby Signatures: Dispatcher [employer] Jasmin Shearer RN RN dw Anderson, Corey, MD MD cha Smirch, Shelby, RN RN ss Abbie Perez RN RN ld1 Vanessa Dockery RN RN ll3 Corrections: (The following items were deleted from the chart) 00:16 00:03 Chest Single View+RAD.RAD.BRZ ordered. [facility] EDMS : 00:54 Telemetry/MedSurg (observation) coby ss 07:57 00:54 coby ss 07 07:57 ss ss 10 07:57 BR ER [facility] dw 07:58 [facility]- dw
--- NOTE | 2022-02-06 00:54 | ER ---
Nurse's Notes [facility] Name: Reji Wallace Age: 61 yrs Sex: Male : 1960 Arrival Date: 02/05/2022 Time: 22:49 Bed 14 Private MD: Diagnosis: Drug-induced hypoglycemia without coma;Diabetes mellitus due to underlying condition with hypoglycemia without coma;Nausea Presentation: 02/05 22:58 Chief complaint: Patient states: Pt reports blood sugars dropping all day. Pt has ld1 Freestyle flex glucose monitoring system - 14 day monitoring system on left arm. BG level of 59. C/O nausea, chills, diarrhea, and cotton mouth. Coronavirus screen: At this time, the client does not indicate any symptoms associated with coronavirus-19. Ebola Screen: No symptoms or risks identified at this time. Initial Sepsis Screen: Does the patient meet any 2 criteria? No. Patient's initial sepsis screen is negative. Does the patient have a suspected source of infection? No. Patient's initial sepsis screen is negative. Risk Assessment: Do you want to hurt yourself or someone else? Patient reports no desire to harm self or others. Onset of symptoms was February 05, 2022. 22:58 Method Of Arrival: Ambulatory ld1 22:58 Acuity: ARIA 3 ld1 Triage Assessment: 22:58 General: Appears in no apparent distress. comfortable, Behavior is calm, cooperative, ld1 appropriate for age. Pain: Denies pain. Neuro: Level of Consciousness is awake, alert, obeys commands, Oriented to person, place, time, situation. Cardiovascular: Capillary refill < 3 seconds Patient's skin is warm and dry. Respiratory: Airway is patent Respiratory effort is even, unlabored, Respiratory pattern is regular, symmetrical. GI: Abdomen is round non-distended, Reports diarrhea, nausea. Historical: - Allergies: 22:58 No Known Allergies; ld1 - PMHx: 22:58 Diabetes - NIDDM; High Cholesterol; Hypertension; Prostate Cancer; ld1 - PSHx: 22:58 None; ld1 - Immunization history:: Adult Immunizations up to date, Client reports receiving the 2nd dose of the Covid vaccine. - Social history:: Smoking status: Patient denies any tobacco usage or history of. Patient uses alcohol, occasionally. - Family history:: not pertinent. Screenin:42 Abuse screen: Denies threats or abuse. Nutritional screening: No deficits noted. ll3 Tuberculosis screening: No symptoms or risk factors identified. Assessment: 23:42 General: Appears comfortable, Behavior is calm, cooperative. General: Reports ll3 Generalized weakness. Pain: Denies pain. Neuro: Level of Consciousness is awake, alert, obeys commands, Oriented to person, place, time, situation. Cardiovascular: Patient's skin is warm and dry. Respiratory: Respiratory effort is even, unlabored, Respiratory pattern is regular, symmetrical. GI: Reports diarrhea, nausea, vomiting, since N/V for a couple of days States home glucose monitoring at home showed 56, rechecked in exam room and monitor showed 78. GI: Abdomen is round non-distended, Stools are reported to be diarrhea. Derm: Skin is pink, warm \T\ dry. 02/06 01:00 Reassessment: No changes from previously documented assessment. Patient and/or family ll3 updated on plan of care and expected duration. Pain level reassessed. Patient is alert, oriented x 3, equal unlabored respirations, skin warm/dry/pink. Vital Signs: 02/05 22:58 BP 129 / 91; Pulse 94; Resp 18; Temp 98.0(TE); Pulse Ox 98% on R/A; Weight 131.54 kg; ld1 Height 5 ft. 10 in. (177.80 cm); Pain 0/10; 02/06 02:00 BP 130 / 84; Pulse 85; Resp 16; Pulse Ox 100% on R/A; ll3 04 22:58 Body Mass Index 41.61 (131.54 kg, 177.80 cm) ld1 ED Course: 02/05 22:49 Patient arrived in ED. ja2 22:58 Arm band placed on right wrist. ld1 23:01 Triage completed. ld1 23:42 Patient has correct armband on for positive identification. Bed in low position. Call ll3 light in reach. Side rails up X 1. Adult w/ patient. 02/06 00:02 Roberto So MD is Attending Physician. coby 00:52 Rakesh Waller is Hospitalizing Provider. coby 01:27 Hellen Sánchez is Primary Nurse. [facility] 01:36 Vanessa Dockery RN is Primary Nurse. ll3 Administered Medications: 01:20 Drug: NS 0.9% 1000 ml Route: IV; Rate: 125 ml/hr; Site: right hand; 3 01:36 Drug: Zofran (Ondansetron) 4 mg Route: IVP; Site: right hand; ll3 Outcome: 00:54 Decision to Hospitalize by Provider. coby 12:58 Patient left the ED. aa5 Signatures: Roberto So MD MD cha Calderon, Audri RN RN aa5 Abbie Perez RN RN ld1 Zaira Melendrez Tiffany 5 Vanessa Dockery RN RN ll3
[2022-02-06] MEDS ORDERED: ONDANSETRON 4 MG/2 ML VIAL ONE (01:31)
[2022-02-06 01:47] LABS: Protime INR 1.2
[2022-02-06 01:48] LABS: Absolute Lymphocytes (CBC) 2.4 K/uL (0.7-4.9); Hematocrit 39.7 % (39.6-49.0); Lymphocytes % 22.3 % (15.3-44.8); MPV 7.4 fL (7.6-11.3); RBC Red Blood Cell Count 4.41 M/uL (4.33-5.43)
--- NOTE | 2022-02-06 02:34 | P.HP ---
Certification for Inpatient Patient admitted to: Observation With expected LOS: <2 Midnights Patient will require the following post-hospital care: None Practitioner: I am a practitioner with admitting privileges, knowledge of patient current condition, hospital course, and medical plan of care. Services: Services provided to patient in accordance with Admission requirements found in Title 42 Section 412.3 of the Code of Federal Regulations Patient History Date of Service: 02/06/22 Reason for admission: Hypoglycemia History of Present Illness: Patient is a 61-year-old -Monegasque male with past medical history of type 2 diabetes insulin-dependent, hypertension, hyperlipidemia who presented to the ED with complaints of nausea vomiting and chills and reporting that his flex freestyle glucose monitor has been having consistently low blood sugar readingsas low as 49. He states his medications were adjusted about a week ago and has had no changes in his diet. In the ER, his glucose was monitored via his reader and readings were anywhere from 80-120. He was given some Jell-O, peanut butter, juice. Glucose reading on CMP was 120. Other labs within normal limits. ED provider wishes to admit patient for observation Allergies No Known Drug Allergies Allergy (Verified 03/12/21 08:45) Unknown Home medications list reviewed: Yes (recently modified) Home Medications: Losartan Potassium [Cozaar] 100 mg PO DAILY 04/22/20 Metoprolol Succinate [Toprol Xl] 200 mg PO DAILY 04/22/20 Rosuvastatin [Crestor*] 10 mg PO DAILY tab 04/24/20 Dulaglutide [Trulicity] 3 mg SQ EVERY 7TH DAY 03/12/21 Empagliflozin/Metformin HCl [Synjardy 12.5-1,000 mg Tablet] 2 each PO DAILY 03/12/21 Insulin Degludec [Tresiba Flextouch U-100] 80 unit SQ DAILY 03/12/21 - Past Medical/Surgical History Diabetic: Yes -: IDDM -: HTN -: hyperlipidemia -: history of protate cancer -: Prostatectomy Psychosocial/ Personal History: 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 - Family History Father -: Cancer Notes: prostate - Social History Smoking Status: Never smoker Alcohol use: Yes CD- Drugs: No Caffeine use: Yes Place of Residence: Home Review of Systems General: Weakness Gastrointestinal: Nausea, Vomiting Physical Examination - Physical Exam General: Alert, In no apparent distress HEENT: Atraumatic, PERRLA, Mucous membr. moist/pink, EOMI, Sclerae nonicteric Neck: Supple, 2+ carotid pulse no bruit, No LAD, Without JVD or thyroid abnormality Respiratory: Clear to auscultation bilaterally, Normal air movement Cardiovascular: Regular rate/rhythm, Normal S1 S2 Gastrointestinal: Normal bowel sounds, No tenderness Musculoskeletal: No tenderness Integumentary: No rashes Neurological: Normal gait, Normal speech, Normal strength at 5/5 x4 extr, Normal tone, Normal affect - Studies Laboratory Data (last 24 hrs) 02/06/22 01:24: PT 13.2 H, INR 1.20 02/06/22 01:24: WBC 10.6, Hgb 13.0 L, Hct 39.7, Plt Count 348 Assessment and Plan - Problems (Diagnosis) (1) Type 2 diabetes mellitus Current Visit: Yes Status: Chronic Qualifiers: Diabetes mellitus termite technician insulin use: with termite technician use Diabetes mellitus complication status: with hypoglycemia Diabetes mellitus complication detail: without coma Qualified Code(s): E11.649 - Type 2 diabetes mellitus with hypoglycemia without coma; Z79.4 - retirement (current) use of insulin (2) Nausea and vomiting Current Visit: Yes Status: Acute Qualifiers: Vomiting type: unspecified Qualified Code(s): R11.2 - Nausea with vomiting, unspecified (3) Hyperlipidemia associated with type 2 diabetes mellitus Current Visit: No Status: Chronic (4) Hypertension Current Visit: Yes Status: Chronic Qualifiers: Hypertension type: primary hypertension Qualified Code(s): I10 - Essential (primary) hypertension (5) History of prostate cancer Current Visit: No Status: Resolved - Plan Continue to monitor blood sugar every 4 hours overnight. Readings have been consistently above 80. CMP reading was 120. Patient reports feeling better. Continue regular diet. Nausea and vomiting have resolved. Zofran ordered as needed. Hypoglycemia secondary to recent changes in medications. Patient will need further adjustments. Lovenox for DVT PPx. Full code. Discharge Plan: Home Plan to discharge in: 24 Hours - Advance Directives Does patient have a Living Will: No Does patient have a Durable POA for Healthcare: No - Code Status/Comfort Care Code Status Assessed: Yes (Full) Critical Care: No Time Spent Managing Pts Care (In Minutes): 70
[2022-02-06 03:38] LABS: SARS-COV-2 RT PCR NEGATIVE (NEGATIVE)
[2022-02-06 04:18] LABS: ALT/SGPT 21 U/L (12-78); AST/SGOT 12 U/L (15-37); Albumin 3.2 g/dL (3.4-5.0); Alkaline Phosphatase 116 U/L (45-117); BUN Blood Urea Nitrogen 16 mg/dL (7-18); Bicarbonate 25 mmol/L (21-32); Bilirubin Total 0.2 mg/dL (0.2-1.0); Glucose Level 120 mg/dL (74-106); Magnesium 1.9 mg/dL (1.8-2.4); NT PRO-BNP 22 pg/mL (<125); Potassium 3.7 mmol/L (3.5-5.1); Protein, Total 7.7 g/dL (6.4-8.2); Sodium Level 140 mmol/L (136-145)
[2022-02-06 04:21] LABS: Bilirubin Direct < 0.1 mg/dL (0-0.2)
[2022-02-06] MEDS ORDERED: ONDANSETRON 4 MG/2 ML VIAL IV PRN (04:30)
[2022-02-06] MEDS ORDERED: ACETAMINOPHEN 500 MG TAB PO PRN (04:30)
[2022-02-06 04:33] LABS: Troponin High Sensitivity 3.3 pg/mL (<58.9)
[2022-02-06 06:53] LABS: Urine Blood Negative (Negative); Urine Glucose 2+ (Negative); Urine Protein Negative (Negative)
[2022-02-06] MEDS: INSULIN -REGULAR HUMAN 50 UNIT/0.5 ML ML SQ SCH ×4 (07:30→21:00)
[2022-02-06] MEDS ORDERED: ENOXAPARIN 40 MG/0.4 ML SQ ONE (08:41)
[2022-02-06] MEDS: ENOXAPARIN 40 MG/0.4 ML SQ SCH (08:49)
[2022-02-06] MEDS: NA CHLORIDE 0.9% 1,000 ML IV SCH ×2 (08:50→14:30)
[2022-02-06] MEDS ORDERED: PROMETHAZINE INJ 25 MG/ML AMP IV ONE (13:28)
--- NOTE | 2022-02-06 18:30 | P.PN ---
Date of Service: 02/06/22 Patient seen and examined. He was complaining of nausea earlier. His nausea resolved with a dose of IV Phenergan. He has tolerated diet. Blood sugar readings improved but in the low 100s. Plan: Continue blood sugar monitoring as inpatient. Insulin sliding scale Diet as tolerated. Possible discharge in a.m.
[2022-02-06 22:41] VITALS: O2SAT 96
[2022-02-07 04:38] VITALS: BMI 41.5
[2022-02-07 06:30] VITALS: TEMP 97.2
[2022-02-07] MEDS: INSULIN -REGULAR HUMAN 50 UNIT/0.5 ML ML SQ SCH (07:30)
--- NOTE | 2022-02-07 08:36 | P.DS ---
Admission Date: 02/06/22 Discharge Date: 02/07/22 Disposition: ROUTINE DISCHARGE Discharge Condition: FAIR Reason for Admission: Hypoglycemia - Problems (1) Hypoglycemia Status: Acute (2) Type 2 diabetes mellitus Status: Chronic Qualifiers: Diabetes mellitus pharmacy salesperson insulin use: with pharmacy salesperson use Diabetes mellitus complication status: with hypoglycemia Diabetes mellitus complication detail: without coma Qualified Code(s): E11.649 - Type 2 diabetes mellitus with hypoglycemia without coma; Z79.4 - prison (current) use of insulin (3) Hypertension Status: Chronic Qualifiers: Hypertension type: primary hypertension Qualified Code(s): I10 - Essential (primary) hypertension Brief History of Present Illness: Patient is a 61-year-old -Hungarian male with past medical history of type 2 diabetes insulin-dependent, hypertension, hyperlipidemia who presented to the ED with complaints of nausea vomiting and chills and reporting that his flex freestyle glucose monitor has been having consistently low blood sugar readingsas low as 49. He states his medications were adjusted about a week ago and has had no changes in his diet. In the ER, his glucose was monitored via his reader and readings were anywhere from 80-120. He was given some Jell-O, peanut butter, juice. Glucose reading on CMP was 120. Other labs within normal limits. Patient placed under observation for further management. Hospital Course: Patient blood sugar was monitored as inpatient and it remained stable. No more hypoglycemia episodes. Patient tolerated diet. Blood sugar was stable without his insulin. No AMS. Patient is formed not to administer his long-acting insulin until his blood sugar is greater than 200. He is informed to call his inpatient pharmacist and set up an appointment [id number]. Vital Signs/Physical Exam: Temp Pulse Resp BP Pulse Ox 97.2 F 93 H 16 105/52 L 100 02/07/22 04:00 02/07/22 04:00 02/07/22 04:00 02/07/22 04:00 02/07/22 04:00 General: Alert, In no apparent distress, Oriented x3 HEENT: Mucous membr. moist/pink Neck: JVD not distended Respiratory: Clear to auscultation bilaterally, Normal air movement Cardiovascular: No edema, Regular rate/rhythm Gastrointestinal: Normal bowel sounds, Soft and benign, Non-distended, No tenderness Musculoskeletal: No swelling Integumentary: No rashes, No cyanosis Neurological: Normal strength at 5/5 x4 extr Laboratory Data at Discharge: WBC 10.6 K/uL (4.3-10.9) 02/06/22 01:24 Hgb 13.0 g/dL (13.6-17.9) L 02/06/22 01:24 Hct 39.7 % (39.6-49.0) 02/06/22 01:24 Plt Count 348 K/uL (152-406) 02/06/22 01:24 PT 13.2 SECONDS (9.5-12.5) H 02/06/22 01:24 INR 1.20 02/06/22 01:24 Sodium 140 mmol/L (136-145) 02/06/22 01:24 Potassium 3.7 mmol/L (3.5-5.1) 02/06/22 01:24 BUN 16 mg/dL (7-18) 02/06/22 01:24 Creatinine 1.11 mg/dL (0.55-1.3) 02/06/22 01:24 Glucose 120 mg/dL (74-106) H 02/06/22 01:24 Magnesium 1.9 mg/dL (1.8-2.4) 02/06/22 01:24 Total Bilirubin 0.2 mg/dL (0.2-1.0) 02/06/22 01:24 AST 12 U/L (15-37) L 02/06/22 01:24 ALT 21 U/L (12-78) 02/06/22 01:24 Alkaline Phosphatase 116 U/L (45-117) 02/06/22 01:24 Home Medications: Losartan Potassium [Cozaar] 100 mg PO DAILY 04/22/20 Metoprolol Succinate [Toprol Xl] 200 mg PO DAILY 04/22/20 Rosuvastatin [Crestor*] 10 mg PO DAILY tab 04/24/20 Dulaglutide [Trulicity] 3 mg SQ EVERY 7TH DAY 03/12/21 Empagliflozin/Metformin HCl [Synjardy Xr 12.5-1,000 mg Tab] 2 tab PO DAILY 02/06/22 Phentermine/Topiramate [Qsymia 3.75 mg-23 mg Capsule] 23 mg PO DAILY 02/06/22 Sildenafil Citrate 20 mg PO DAILY 02/06/22 Tolterodine Tartrate [Detrol LA*] 4 mg PO DAILY 02/06/22 Diet: ADA Activity: Ad brooklynn Followup: Anshu Herrera MD [Primary Care Provider] - 1 Week (Call to schedule appointment.)
[2022-02-07] MEDS: ENOXAPARIN 40 MG/0.4 ML SQ SCH (09:00)
[2022-02-07 10:35] VITALS: BP 127/65
== END 2022-02-07 10:30 | disposition home or self-care (01) ==
LOC: ER 22:48 → ERHOLD 02-06 02:01 → 2ND 02-06 12:30
PROVIDERS: ADMIT Internal Medicine; ATTEND Internal Medicine
DX: E11.649 Type 2 diabetes mellitus with hypoglycemia without coma (principal); R11.2 Nausea with vomiting, unspecified; I10 Essential (primary) hypertension; E78.5 Hyperlipidemia, unspecified; Z79.4 Long term (current) use of insulin; Z85.46 Personal history of malignant neoplasm of prostate; Z90.79 Acquired absence of other genital organ(s); Z20.822 Contact with and (suspected) exposure to COVID-19; Z80.42 Family history of malignant neoplasm of prostate
CPT/HCPCS: 93005; 85025; 80048; 36415; 83735; 85610; 82947 ×6; 80076; 81003; 84484; 83880; 0240U; 96374; 99282; J2550; J1650; J7030 ×2; J2405 ×2; G0378

== ENCOUNTER 2022-11-14 13:01 | Inpatient (IN) | payer OTHER ==
--- OUTSIDE RECORDS SUMMARY | 2022-11-14 13:05 | XMS REPORT | Clinical Summary ---
:1960 Author Organization [facility] Address [address] [place] [address] Care Team Providers Name Role Phone Jose Enrique Laughlin MD Primary Care Provider Allergies No known active [...] Date Type 2 diabetes mellitus 01/31/2021 Essential hemorrhagic thrombocythemia 01/19/2020 Anemia of chronic disease 12/20/2019 [...] Description 12/02/2021 Telephone Urology Dian Peña PA after 11/14/2021 Surgical History Surgery Date Site/Laterality Comments HEMORRHOID SURGERY 11/02/2004 - 11/01/2005 CARDIAC CATHETERIZATION 11/02/2004 - 11/01/2005 KNEE SURGERY 11/02/2000 - 11/01/2001 Medical History Medical History Date Comments Hypertension 2009 Hyperlipidemia 2010 Diabetes mellitus 2008 Currently managed insulin Herpes zoster 2018 Morbid (severe) obesity due to excess 2001 Gigi dodd currently weighs around 277 calories pounds. Patient stat es that his weight began to incr ease after he was 41 years of age Family History Medical History Relation Name Comments -Other cancer Father O D Wallace Esophageal cance r Brain cancer Father O D Wallace Lung cancer Father O D Wallace Prostate cancer Father O Lui Wallace Relation Name Status Comments Father Kenna Wallace Social History Tobacco Use Types Packs/Day Years Used Date Smoking Tobacco: Never Smokeless Tobacco: Never Alcohol Use Standard Drinks/Week Comments Yes 1 (1 standard drink = 0.6 oz pure alcoho l) Sex Assigned at Date Recorded Not on file Job Start Date Occupation Industry Not on file Not on file Not on file Obstetrics History Last Filed Vital Signs Not on file Plan of Treatment Health Maintenance Due Date Last Done Comments COVID-19 Vaccination (#1) 1960 Results Not on fileafter 11/14/2021 Insurance Payer Benefit Plan / Subscriber ID Effective Dates Phone Addre ss Type Group [employer] MANAGED A[employer] O [id number] 2011-[address] X [id number] [place] [address] Care Teams Sports Statistician Relationship Specialty Start Date End Date Jose Enrique Laughlin MD PCP - General Urology 01/04/[address] [place] [id number]
--- OUTSIDE RECORDS SUMMARY | 2022-11-14 13:08 | XMS REPORT | Continuity of Care Document ---
:[address] [facility] t Address [address] [place] [address] Care Team Providers Name Role Phone [phone] Primary Care Physician Unavailable Anshu Herrera Attending Clinician Unavailable AYAN WELSH Attending Clinician Unavailable SYSTEM, PROVIDER NOT IN Attending Clinician Unavailable Gary_Shannan Attending Clinician Unavailable Dian Green Attending Clinician CELESTE KEARNS Attending Clinician Unavailable David Velázquez MD Attending Clinician Lab, [facility] Pob I Attending Clinician Unavailable Sherry Lafleur Attending Clinician Anshu Herrera Admitting Clinician Unavailable AYAN WELSH Admitting Clinician Unavailable She Admitting Clinician Unavailable Payers Payer Name Policy Type Policy Number Effective Date Expiration Date S ource AETNA 53 [id number] 2011 [facility] 00:00:00 - [facility] AETNA (EPO) [id number] 2011 00:00:00 AETNA SELECT [id number] 2018 [place] ACCESS 00:00:00 Problems Condition Condition Condition Status Onset Resolution Last Treating Co mments Source Name Details Category Date Date Treatment Clinician Date Hypoglycem Hypoglycem Problem Active V illage ia ia 6- Family 00:00: Practic 00 e Morbid Morbid Problem Active [facility] obesity Obesity 4- Family 00:00: Practic 00 e Type 2 Type 2 Problem Active [facility] diabetes Diabetes 3-28 Family mellitus Mellitus 00:00: Practi c 00 e Urinary Urinary Problem Active [facility] incontinen Incontinen 3-28 Rob elliott ce 00:00: Practic 00 e Body mass Body Mass Problem Active Nataly mora index 40+ Index 40+ 3-28 Fami ly - severely - Severely 00:00: Pr actic obese Obese 00 e Prostate Prostate Disease [facility] Long-term Long-term Problem Active Nataly mora current Current 6 Family use of Use of 00:00: Practic insulin Insulin 00 e Type 2 Type 2 Disease Active [facility] diabetes diabetes 4- ity of mellitus mellitus 00:00: [place] 00 MD [facility] Thrombocyt Thrombocyt Problem Active V illage osis osis 3-19 Family 00:00: Practic 00 e Essential Essential Problem Active Nataly mora thrombocyt Thrombocyt 3-19 Rob gutierrez hemia hemia 00:00: Practic 00 e Anemia Anemia Problem Active [facility] 3-19 Family 00:00: Practic 00 e Essential Essential Disease Active Uni vers hemorrhagi hemorrhagi 3-19 it y of c c 00:00: [place] thrombocyt thrombocyt 00 MD [facility] Anemia of Anemia of Disease Active Uni vers chronic chronic 2-18 ity of disease disease 00:00: [place] 00 MD [facility] Type 2 Type 2 Disease Active [facility] diabetes diabetes 2-18 ity of mellitus mellitus 00:00: [place] with with 00 diabetic diabetic Angel o chronic chronic n kidney kidney Cancer disease disease Center Coronary Coronary Disease Active Unive rs arterioscl arterioscl 2-18 it y of erosis erosis 00:00: [place] 00 MD [facility] Type 2 Type 2 Problem Active [facility] diabetes Diabetes 4-24 Family mellitus Mellitus 00:00: Practi c without without 00 e complicati Complicati on on Hyperlipid Hyperlipid Problem Active V illage emia emia 02-23 Family 00:00: Practic 00 e Obesity Obesity Problem Active [place] 24 Family 00:00: Practic 00 e Essential Essential Problem Active Nataly mroa hypertensi Hypertensi 02-23 Fa matt on on 00:00: Practic 00 e Primary Primary Problem Active [place] erectile Erectile 02-23 Family dysfunctio Dysfunctio 00:00: Pr actic n n 00 e Impotence Impotence Problem Active Nataly mora 02-23 Family 00:00: Practic 00 e Clinical Clinical Problem Active [facility] finding Finding 02-23 Family 00:00: Practic 00 e Hypertensi Hypertensi Disease Active U nivers on on 02-23 ity of 00:00: [place] 00 MD [facility] Carcinoma Carcinoma Disease Active Uni vers of of 02-23 ity of prostate prostate 00:00: MD [facility] Morbid Morbid Disease Active Univers obesity obesity 02-23 ity of 00:00: [place] 00 MD [facility] Herpes Herpes Disease Active Univers zoster zoster 11-02 ity of 00:00: [place] 00 MD [facility] Hypotestos Hypotestos Disease Active U nivers teronism teronism 3-30 ity of 00:00: [place] 00 MD [facility] Male Male Disease Active 2009-11 Univers erectile erectile 0-08 ity of dysfunctio dysfunctio [place] 00 [place] [facility] Diabetes Diabetes Disease Active Overview: Un jaky mellitus mellitus 11-02 Formattin ity of 00:00: g of this note might be Alea noble n from the Cancer original. Center Currently managed with insulin Morbid Morbid Disease Active Univers (severe) (severe) 11-02 ity of obesity obesity 00:00: [place] due to due to 00 excess excess Anderso calories calories n Cancer Center S/P S/P Problem Common prostatect prostatect Sp smita jc jc [facility] [id number] Pain in Problem Comm on left thigh Spirit [facility] [id number] Pain in Problem Comm on [id number] right Spirit thigh - [facility] [id number] Continuous Problem Co mmon leakage of Spirit urine - [facility] Mixed Mixed Problem Common incontinen stress and Sp smita ce urge - [facility] urinary [facility] SI - Male Problem Common Stress stress Spirit incontinen incontinen - 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 (ISD) [facility] [id number] Detrusor Problem Comm on instabilit Spirit y - [facility] [id number] Erectile Problem Comm on dysfunctio Spirit n, - [facility] unspecifie [facility] erectile [facility] dysfunctio Medica l n type Center [id number] OAB Problem Common (overactiv Spirit e bladder) [facility] [id number] ED Problem Common (erectile Spirit dysfunctio - [facility] n) of [facility] [id number] BPH loc w Problem Com mon urin Spirit obs/LUTS - [facility] [id number] Cancer of Problem Comm on prostate Spirit with - [facility] recurrence Medica l risk Center (stage T2b-c or Ashlie 7 or PSA 10-20) [id number] Febrile Problem Commo n illness, [facility] acute [facility] [id number] Hypogonadi Problem Com mon sm in male [facility] [id number] Hyperestro Problem Com mon genism in [facility] male [facility] Allergies, Adverse Reactions, Alerts Allergy Allergy Status Severity Reaction(s) Onset Inactive Treating Comm ents Source Name Type Date Date Clinician METFORMI Allergy Active [facility] 05-30 00:00: 00 NO KNOWN Drug Active [facility] ALLERGIE Class [place] [facility] NO KNOWN Allergy Active [facility] Metformi Allergy Active [place] n to Family substanc Practic e e Family History Family Member Diagnosis Comments Start Date Stop Date Source Natural father Lung cancer [facility] MD Judah Sinclair [facility] Natural [facility] MD Judah Sinclair [facility] Natural father -Other cancer Univers ity [facility] Natural father Brain cancer Universi ty [place] MD [facility] Social History Social Habit Start Date Stop Date Quantity Comments Source Exposure to Yes University of SARS-CoV-2 [place] [facility] History of [facility] Tobacco Use [facility] History SDOH [facility] History SDOH [facility] Alcohol Std Medical Cente r Drinks History SDOH [facility] Alcohol Binge Medical [address] Tobacco use and 2021-05-21 2021-05-[address] [facility] Ximena kes exposure 00:00:00 00:00:00 Medical Center History SDOH 2021-05-21 2021-05-[address] [facility] [facility] Alcohol Comment 00:00:00 00:00:00 Medical C enter Alcohol intake 2021-02-07 2021-02-07 Current drinker Unive rsity of 00:00:00 00:00:00 of alcohol [place] MD Huber son (finding) [facility] Sex Ass[birth year] At [birth year] Universit y of 00:00:00 00:00:00 [place] MD Huber [facility] Smoking Status Start Date Stop Date Source Unknown if ever smoked [facility] Never Smoker [facility] Medications Ordered Filled Start Stop Current Ordering Indication Dosage Frequency Signature Comments Components Source Medication Medication Date Date Medication? Clinician (SIG) Name Name Bradley Huerta 2021-11 No 1{ml} Testostero e Cypionate e Cypionate 11-03 ne 200 MG/ML 200 MG/ML 00:00: Cypionate 00 200 MG/ML Arianaosteron Alfredaon No Testostero e Cypionate e Cypionate 06-02 ne 200 MG/ML 200 MG/ML 00:00: Cypionate 00 200 MG/ML Testosteron Arianaosteron No Testostero e Cypionate e Cypionate 06-02 ne 200 MG/ML 200 MG/ML 00:00: Cypionate 00 200 MG/ML Anastrozole Anastrozole 2022- No Anastrozol 1 MG 1 MG 06-02 e 1 MG 00:00: 00:00 00 :00 Anastrozole Anastrozole 2022- No Anastrozol 1 MG 1 MG 06-02 e 1 MG 00:00: 00:00 00 :00 Detrol LA 4 Detrol LA 4 2020-11- No 1{capsu QD Detrol LA MG MG 12-30 le} 4 MG 00:00: 00:00 00 :00 Detrol LA 4 Detrol LA 4 2020-113- No 1{capsu QD Detrol LA MG MG 12-30 le} 4 MG 00:00: 00:00 00 :00 Detrol LA 4 Detrol LA 4 2020-11- No 1{capsu QD Detrol LA MG MG 12-3008 le} 4 MG 00:00: 00:00 00 :00 Detrol LA 4 Detrol LA 4 2020-11- No 1{capsu QD Detrol LA MG MG 12-3008 le} 4 MG 00:00: 00:00 00 :00 Detrol LA 4 Detrol LA 4 2020-11- No 1{capsu QD Detrol LA MG MG 12-3008 le} 4 MG 00:00: 00:00 00 :00 Detrol LA 4 Detrol LA 4 2020-11- No 1{capsu QD Detrol LA MG MG 12-3027 le} 4 MG 00:00: 00:00 00 :00 VESIcare 10 VESIcare 10 2020-11- No 1{table QD VESIcare MG MG 12-11 t} 10 MG 00:00: 00:00 00 :00 Ditropan XL Ditropan XL 2020-11- No 1{table QD Ditropan 10 MG 10 MG 11-05 t} XL 10 MG 00:00: 00:00 00 :00 Ditropan XL Ditropan XL 2020-11- No 1{table QD Ditropan 10 MG 10 MG 11-05 t} XL 10 MG 00:00: 00:00 00 :00 Flomax 0.4 Flomax 0.4 2020-11- No 1{capsu QD Flomax 0.4 MG MG 008 05-06 le} MG 00:00: 00:00 00 :00 Flomax 0.4 Flomax 0.4 2020-11- No 1{capsu QD Flomax 0.4 MG MG 0-08 05-06 le} MG 00:00: 00:00 00 :00 Flomax 0.4 Flomax 0.4 2020-2- No 1{capsu QD Flomax 0.4 MG MG 0-08 05-06 le} MG 00:00: 00:00 00 :00 Flomax 0.4 Flomax 0.4 2020-2- No 1{capsu QD Flomax 0.4 MG MG 0-08 05-06 le} MG 00:00: 00:00 00 :00 Flomax 0.4 Flomax 0.4 2020-2021- No 1{capsu QD Flomax 0.4 MG MG 0-08 05-06 le} MG 00:00: 00:00 00 :00 Flomax 0.4 Flomax 0.4 2020-2021- No 1{capsu QD Flomax 0.4 MG MG 0-08 05-06 le} MG 00:00: 00:00 00 :00 Pseudoephed Pseudoephed 2021-0 No 1{capsu BID Pseudoephe rine HCl 30 rine HCl 30 9-22 le} drine HCl MG MG 00:00: 30 MG 00 Pseudoephed Pseudoephed 2021-0 No 1{capsu BID Pseudoephe rine HCl 30 rine HCl 30 9-22 le} drine HCl MG MG 00:00: 30 MG 00 Pseudoephed Pseudoephed 2021-0 No 1{capsu BID Pseudoephe rine HCl 30 rine HCl 30 9-22 le} drine HCl MG MG 00:00: 30 MG 00 Pseudoephed Pseudoephed 2021-0 No 1{capsu BID Pseudoephe rine HCl 30 rine HCl 30 9-22 le} drine HCl MG MG 00:00: 30 MG 00 Pseudoephed Pseudoephed 2021-0 No 1{capsu BID Pseudoephe rine HCl 30 rine HCl 30 9-22 le} drine HCl MG MG 00:00: 30 MG 00 Pseudoephed Pseudoephed 2021-0 No 1{capsu BID Pseudoephe rine HCl 30 rine HCl 30 9-22 le} drine HCl MG MG 00:00: 30 MG 00 Pseudoephed Pseudoephed 2021-0 No 1{capsu BID Pseudoephe rine HCl 30 rine HCl 30 9-22 le} drine HCl MG MG 00:00: 30 MG 00 Pseudoephed Pseudoephed 2021-0 No 1{capsu BID Pseudoephe rine HCl 30 rine HCl 30 9-22 le} drine HCl MG MG 00:00: 30 MG 00 Pseudoephed Pseudoephed 2021-0 No 1{capsu BID Pseudoephe rine HCl 30 rine HCl 30 9-22 le} drine HCl MG MG 00:00: 30 MG 00 Pseudoephed Pseudoephed 2021-0 No 1{capsu BID Pseudoephe rine HCl 30 rine HCl 30 9-22 le} drine HCl MG MG 00:00: 30 MG 00 Pseudoephed Pseudoephed 2021-0 No 1{capsu BID Pseudoephe rine HCl 30 rine HCl 30 9-22 le} drine HCl MG MG 00:00: 30 MG 00 Ditropan XL Ditropan XL 2020-0 2021- No 1{table QD Ditropan 5 MG 5 MG 07-24 t} XL 5 MG 00:00: 00:00 00 :00 Ditropan XL Ditropan XL 2020-0 2021- No 1{table QD Ditropan 5 MG 5 MG 07-24 t} XL 5 MG 00:00: 00:00 00 :00 Cipro 500 Cipro 500 1-0 2021- No 1{table BID Cipro 500 MG MG 06-07 t} MG 00:00: 00:00 00 :00 Cipro 500 Cipro 500 1-0 2021- No 1{table BID Cipro 500 MG MG 06-07 t} MG 00:00: 00:00 00 :00 Acetaminoph Acetaminoph 2020-0 2021- No 1{table QID Acetaminop en-Codeine en-Codeine 06-07 t_as_ne hen-Codein #3 300-30 #3 300-30 00:00: 00:00 eded} e #3 MG MG 00 :00 300-30 MG empaglifloz 2020-[address] [facility] 06-01 mouth [facility] n 14:01: daily with Medical (Synjardy) [address] 12.5-1,000 mg Tab losartan Yes 100mg QD Take [address] (COZAAR) 7-31 mg by [facility] 100 MG 14:01: mouth Medical tablet 34 daily. Center metoprolol Yes 200mg QD Take [address] succinate 7-31 mg by [facility]ukes (TOPROL-XL) 14:01: mouth Medic al 200 MG 24 34 daily. Center hr tablet rosuvastati Yes 10mg QD Take [address] n (CRESTOR) 7-31 by mouth Luke s 10 MG 14:01: daily. Medical tablet 34 Center sildenafiL Yes 100mg Take [address] (VIAGRA) 7-31 mg by [facility] 100 MG 14:01: mouth Medical tablet 34 daily as Center needed for Erectile Dysfunctio n. insulin Yes 80U Inject 80 [facility] degludec 7-31 Units [facility] (Tresiba 14:01: subcutaneo Med ical FlexTouch 34 usly daily Cent er U-200) 200 with unit/mL (3 breakfast. mL) InPn dulaglutide Yes 3mg Inject [address] (Trulicity) 7-31 mg [facility] 3 mg/0.5 mL 14:01: subcutaneo Medical PnIj 34 usly every Center 7 days. insulin Yes Inject [facility] lispro 7-31 subcutaneo [facility] (HumaLOG) 14:01: usly 3 Medica l 100 unit/mL 34 (three) Cente r injection times daily before meals Sliding scale . FreeStyle FreeStyle No FreeStyle [facility] Keyon 14 Keyon 14 6-22 Keyon 14 Fam janelle Day Sensor Day Sensor 00:00: Day Sensor Practic as directed as directed 00 as e directed traMADol traMADol No 1{table QD traMADol HCl 50 MG HCl 50 MG 04-02 t_as_ne HCl 50 MG 00:00: eded} 00 traMADol traMADol No 1{table QD traMADol HCl 50 MG HCl 50 MG 04-02 t_as_ne HCl 50 MG 00:00: eded} 00 traMADol traMADol No 1{table QD traMADol HCl 50 MG HCl 50 MG 6-01 t_as_ne HCl 50 MG 00:00: eded} 00 traMADol traMADol 2020- No 1{table QD traMADol HCl 50 MG HCl 50 MG 6-01 t_as_ne HCl 50 MG 00:00: eded} traMADol traMADol No 1{table QD traMADol HCl 50 MG HCl 50 MG 6-01 t_as_ne HCl 50 MG 00:00: eded} traMADol traMADol No 1{table QD traMADol HCl 50 MG HCl 50 MG 6-01 t_as_ne HCl 50 MG 00:00: eded} traMADol traMADol No 1{table QD traMADol HCl 50 MG HCl 50 MG 6-01 t_as_ne HCl 50 MG 00:00: eded} traMADol traMADol No 1{table QD traMADol HCl 50 MG HCl 50 MG 6-01 t_as_ne HCl 50 MG 00:00: eded} traMADol traMADol No 1{table QD traMADol HCl 50 MG HCl 50 MG 6-01 t_as_ne HCl 50 MG 00:00: eded} 00 traMADol traMADol No 1{table QD traMADol HCl 50 MG HCl 50 MG 6-01 t_as_ne HCl 50 MG 00:00: eded} traMADol traMADol No 1{table QD traMADol HCl 50 MG HCl 50 MG 6-01 t_as_ne HCl 50 MG 00:00: eded} traMADol traMADol No 1{table QD traMADol HCl 50 MG HCl 50 MG 6-01 t_as_ne HCl 50 MG 00:00: eded} 00 traMADol traMADol No 1{table QD traMADol HCl 50 MG HCl 50 MG 6-01 t_as_ne HCl 50 MG 00:00: eded} 00 diazePAM Yes Adenocarcin 10mg Take 1 Univers (Valium) 10 4-06 dali of tablet (10 ity of mg tablet 00:00: prostate mg[place] by [place] 00 mouth once MD as needed Anderso for n sedation Cancer for up to Center 1 dose. aspirin 81 Yes 1{tbl} Take 1 Uni vers mg EC 4-01 tablet by ity of tablet 08:27: mouth [place] 51 daily. MD Alea davis [facility] empaglifloz Yes 2{tbl} Take 2 Un jaky in-metformi 4-01 tablets by it y of n (Synjardy 08:27: mouth [place] XR) 08 daily. 12.5-1,000 Anderso mg TBph [facility] metoprolol Yes 1{tbl} Take 1 Uni vers succinate 3-17 tablet by ity o f (TOPROL XL) 00:00: mouth [place] 200 mg 24 00 daily. hr tablet Alea [facility] rosuvastati Yes 1{tbl} Take 1 Un jaky n (CRESTOR) 3-03 tablet by ity of 10 mg 00:00: mouth [place] tablet 00 daily. MD Alea davis [facility] Tresiba Yes 3mL Inject 3 Univer s FlexTouch 3-03 mL under ity of U-200 200 00:00: the skin [place] unit/mL (3 00 as needed. MD Tinsley) insulin Angelo pen [facility] Gentamicin Gentamicin No 80mg C ommon 80mg 80mg 2 Spirit 00:00: - [facility] Gentamicin Gentamicin 2020-0 No 80mg C ommon 80mg 80mg 2 Spirit 00:00: - [facility] Gentamicin Gentamicin 2020-0 No 80mg C ommon 80mg 80mg 2 Spirit 00:00: - [facility] Gentamicin Gentamicin 2020-0 No 80mg C ommon 80mg 80mg 2 Spirit 00:00: - [facility] Trulicity Yes 3mg Inject 3 Univ ers 1.5 mg/0.5 1-29 mg under ity o f mL 00:00: the skin [place] injection 00 once a MD week. Alea [facility] Valium 5 MG Valium 5 MG 2020- No 1{table Valium 5 1-06 t} MG 00:00: 00 Valium 5 MG Valium 5 MG 2020-0 No 1{table Valium 5 1-06 t} MG 00:00: 00 Valium 5 MG Valium 5 MG 2020-0 No 1{table Valium 5 1-06 t} MG 00:00: 00 Valium 5 MG Valium 5 MG 2020-0 No 1{table Valium 5 1-06 t} MG 00:00: 00 Valium 5 MG Valium 5 MG 2020-0 No 1{table Valium 5 1-06 t} MG 00:00: 00 Valium 5 MG Valium 5 MG 2020-0 No 1{table Valium 5 1-06 t} MG 00:00: 00 Valium 5 MG Valium 5 MG 2020-0 No 1{table Valium 5 1-06 t} MG 00:00: 00 Valium 5 MG Valium 5 MG 2020-0 No 1{table Valium 5 1-06 t} MG 00:00: 00 Valium 5 MG Valium 5 MG 2020-0 No 1{table Valium 5 1-06 t} MG 00:00: 00 Valium 5 MG Valium 5 MG 2020-0 No 1{table Valium 5 1-06 t} MG 00:00: 00 Valium 5 MG Valium 5 MG 2020-0 No 1{table Valium 5 1-06 t} MG 00:00: 00 Valium 5 MG Valium 5 MG 2020-0 No 1{table Valium 5 1-06 t} MG 00:00: 00 Valium 5 MG Valium 5 MG 2020-0 No 1{table Valium 5 1-06 t} MG 00:00: 00 tamsulosin 2019-11 Yes 1{capsu Take 1 Un jaky (FLOMAX) 1-26 le} capsule by ity o f 0.4 mg 24 00:00: mouth [place] hr capsule 00 daily. MD Alea davis [facility] sildenafil 2019-11 Yes 1{tbl} Take 1 Uni vers (VIAGRA) 1-18 tablet by ity of 100 MG 00:00: mouth as [place] tablet 00 needed. MD Alea davis [facility] losartan 2018-11 Yes 1{tbl} Take 1 Unive rs (COZAAR) 2-16 tablet by ity of 100 mg 00:00: mouth [place] tablet 00 daily. MD Alea davis [facility] anastrozole anastrozole No anastrozol [place] 1 mg tablet 1 mg tablet e 1 mg Family tablet Practic e aspirin 81 aspirin 81 No 1 Q1D [...] BD Veo BD Veo No BD Veo [place] Insulin Insulin Insulin Family Syringe Syringe Syringe Practi c Ultra-Fine Ultra-Fine Ultra-Fine e 0.3 mL 31 0.3 mL 31 0.3 mL 31 gauge x gauge x gauge x " " " Comfort EZ Comfort EZ No 2needle Q1D Comfort EZ [place] Pen [place] Pen [place] (s) Pen F amily 32 gauge x 32 gauge x [place] 32 Practic 1" Take 2 11/05" Take 2 gauge x e needles needles 1/4" Take every day every day 2 needles by miscell. by miscell. every day route as route as by directed. directed. miscell. route as directed. Humalog Humalog No Humalog [place] KwikPen KwikPen KwikPen Family U-200 U-200 U-200 Practic Insulin 200 Insulin 200 Insulin e unit/mL (3 unit/mL (3 200 mL) mL) unit/mL (3 subcutaneou subcutaneou mL) s Give s Give subcutaneo before before us Give meals using meals using before CF 1:20 if CF 1:20 if meals glucose glucose using CF >200: TDD >200: TDD 1:20 if 50 50 glucose >200: TDD 50 Jardiance Jardiance No 1 Q1D Jardiance [place] 25 mg 25 mg 25 mg Family tablet Take tablet Take tablet Practic 1 tablet 1 tablet Take 1 e every day every day tablet by oral by oral every day route in route in by oral the morning the morning route in for 90 for 90 the days. days. morning for 90 days. losartan losartan No losartan Nataly abby 100 mg 100 mg 100 mg Family tablet 1 tablet 1 tablet 1 Pra ctic tablet tablet tablet e everyday everyday everyday metoprolol metoprolol metoprolol [facility] succinate succinate succinate Family ER 200 mg ER 200 mg ER 200 mg Practic tablet,exte tablet,exte tablet,ext e nded nded ended release 24 release 24 release 24 hr 1 tablet hr 1 tablet hr 1 everyday everyday tablet everyday Ozempic 2 Ozempic 2 No 2mg Q1W Ozempic 2 [place] mg/dose (8 mg/dose (8 mg/dose (8 Family mg/3 mL) mg/3 mL) mg/3 mL) Pra ctic subcutaneou subcutaneou subcutaneo e s pen s pen us pen injector injector injector Inject 2 mg Inject 2 mg Inject 2 every week every week mg every by by week by subcutaneou subcutaneou subcutaneo s route for s route for us route 90 days. 90 days. for 90 days. Qsymia Qsymia Elkeymia [facility] 11.25 mg-69 11.25 mg-69 11.25 Family mg capsule, mg capsule, mg-69 mg Practic extended extended capsule, e release release extended Take 1 Take 1 release capsule capsule Take 1 every day every day capsule by oral by oral every day route for route for by oral 30 days. 30 days. route for 30 days. Qsymia 15 Qsymia 15 No 1capsul Q1D Qsymia 15 [facility] mg-92 mg mg-92 mg e(s) mg-92 mg Fam janelle capsule, capsule, capsule, Pra ctic extended extended extended e release release release Take 1 Take 1 Take 1 capsule capsule capsule every day every day every day by oral by oral by oral route for route for route for 90 days. 90 days. 90 days. rosuvastati rosuvastati No rosuvastat [facility] n 10 mg n 10 mg in 10 mg Famil y tablet Take tablet Take tablet Practic 1 tablet 1 tablet Take 1 e every day every day tablet by oral by oral every day route as route as by oral directed. directed. route as directed. sildenafil sildenafil sildenafil [facility] 100 mg 100 mg 100 mg Family tablet TAKE tablet TAKE tablet Practic ONE (1) ONE (1) TAKE ONE e TABLET(S) TABLET(S) (1) BY MOUTH BY MOUTH TABLET(S) ONCE A DAY ONCE A DAY BY MOUTH NEEDED. NEEDED. ONCE A DAY NEEDED. testosteron testosteron No testostero [place] e cypionate e cypionate ne F amily 200 mg/mL 200 mg/mL cypionate Practic intramuscul intramuscul 200 mg/mL e ar oil ar oil intramuscu lar oil tolterodine tolterodine No tolterodin [place] ER 4 mg ER 4 mg e ER 4 mg Fami ly capsule,ext capsule,ext capsule,ex Practic ended ended tended e release 24 release 24 release 24 hr hr hr Tresiba Tresiba No Tresiba [place] FlexTouch [...] 130 increase as directed: TDD 130 Trulicity Trulicity No Trulicity Aspirin 81 Aspirin 81 No 1{table QD Aspirin 81 81 MG 81 MG t} 81 MG Synjardy XR Synjardy XR No Synjardy XR Tresiba Tresiba No Tresiba Losartan Losartan No 1{table QD Losartan Potassium Potassium t} Potassium 100 MG 100 MG 100 MG Crestor Crestor No Crestor Testosteron Testosteron No 1{ml} Testostero e Cypionate e Cypionate ne 200 MG/ML 200 MG/ML Cypionate 200 MG/ML Metformin Metformin No 1{table BID Metformin HCl 1000 MG HCl 1000 MG t_with_ HCl 1000 meals} MG Metoprolol Metoprolol No 1{capsu QD Metoprolol Succinate Succinate le} Succinate 200 MG 200 MG 200 MG Decara 250 Decara 250 No Decara 250 MCG (52642 MCG (91715 MCG (53128 UT) UT) UT) Crestor Crestor No Crestor Losartan Losartan No 1{table QD Losartan Potassium Potassium t} Potassium 100 MG 100 MG 100 MG Decara 250 Decara 250 No Decara 250 MCG (76521 MCG (85776 MCG (48067 UT) UT) UT) Metformin Metformin No 1{table BID Metformin HCl 1000 MG HCl 1000 MG t_with_ HCl 1000 meals} MG Trulicity Trulicity No Trulicity Aspirin 81 Aspirin 81 No 1{table QD Aspirin 81 81 MG 81 MG t} 81 MG Synjardy XR Synjardy XR No Synjardy XR Testosteron Testosteron No 1{ml} Testostero e Cypionate e Cypionate ne 200 MG/ML 200 MG/ML Cypionate 200 MG/ML Metoprolol Metoprolol No 1{capsu QD Metoprolol Succinate Succinate le} Succinate 200 MG 200 MG 200 MG Tresiba Tresiba No Tresiba Testosteron Testosteron No 1{ml} Testostero e Cypionate e Cypionate ne 200 MG/ML 200 MG/ML Cypionate 200 MG/ML Synjardy XR Synjardy XR No Synjardy XR Metformin Metformin No 1{table BID Metformin HCl 1000 MG HCl 1000 MG t_with_ HCl 1000 meals} MG Aspirin 81 Aspirin 81 No 1{table QD Aspirin 81 81 MG 81 MG t} 81 MG Losartan Losartan No 1{table QD Losartan Potassium Potassium t} Potassium 100 MG 100 MG 100 MG Trulicity Trulicity No Trulicity Crestor Crestor No Crestor Tresiba Tresiba No Tresiba Metoprolol Metoprolol No 1{capsu QD Metoprolol Succinate Succinate le} Succinate 200 MG 200 MG 200 MG Decara 250 Decara 250 No Decara 250 MCG (24864 MCG (16004 MCG (00946 UT) UT) UT) Aspirin 81 Aspirin 81 No 1{table QD Aspirin 81 81 MG 81 MG t} 81 MG Trulicity Trulicity No Trulicity Losartan Losartan No 1{table QD Losartan Potassium Potassium t} Potassium 100 MG 100 MG 100 MG Metoprolol Metoprolol No 1{capsu QD Metoprolol Succinate Succinate le} Succinate 200 MG 200 MG 200 MG Decara 250 Decara 250 No Decara 250 MCG (42308 MCG (08789 MCG (75336 UT) UT) UT) Metformin Metformin No 1{table BID Metformin HCl 1000 MG HCl 1000 MG t_with_ HCl 1000 meals} MG Synjardy XR Synjardy XR No Synjardy XR Tresiba Tresiba No Tresiba Testosteron Testosteron No 1{ml} Testostero e Cypionate e Cypionate ne 200 MG/ML 200 MG/ML Cypionate 200 MG/ML Crestor Crestor No Crestor Decara 250 Decara 250 No Decara 250 MCG (41571 MCG (00703 MCG (38245 UT) UT) UT) Synjardy XR Synjardy XR No Synjardy XR Losartan Losartan No 1{table QD Losartan Potassium Potassium t} Potassium 100 MG 100 MG 100 MG Aspirin 81 Aspirin 81 No 1{table QD Aspirin 81 81 MG 81 MG t} 81 MG Metoprolol Metoprolol No 1{capsu QD Metoprolol Succinate Succinate le} Succinate 200 MG 200 MG 200 MG Trulicity Trulicity No Trulicity Crestor Crestor No Crestor Testosteron Testosteron No 1{ml} Testostero e Cypionate e Cypionate ne 200 MG/ML 200 MG/ML Cypionate 200 MG/ML Tresiba Tresiba No Tresiba Metformin Metformin No 1{table BID Metformin HCl 1000 MG HCl 1000 MG t_with_ HCl 1000 meals} MG Testosteron Testosteron No 1{ml} Testostero e Cypionate e Cypionate ne 200 MG/ML 200 MG/ML Cypionate 200 MG/ML Aspirin 81 Aspirin 81 No 1{table QD Aspirin 81 81 MG 81 MG t} 81 MG Synjardy XR Synjardy XR No Synjardy XR Tresiba Tresiba No Tresiba Crestor Crestor No Crestor Trulicity Trulicity No Trulicity Decara 250 Decara 250 No Decara 250 MCG (86507 MCG (27665 MCG (49205 UT) UT) UT) Losartan Losartan No 1{table QD Losartan Potassium Potassium t} Potassium 100 MG 100 MG 100 MG Metformin Metformin No 1{table BID Metformin HCl 1000 MG HCl 1000 MG t_with_ HCl 1000 meals} MG Metoprolol Metoprolol No 1{capsu QD Metoprolol Succinate Succinate le} Succinate 200 MG 200 MG 200 MG Testosteron Testosteron No 1{ml} Testostero e Cypionate e Cypionate ne 200 MG/ML 200 MG/ML Cypionate 200 MG/ML Aspirin 81 Aspirin 81 No 1{table QD Aspirin 81 81 MG 81 MG t} 81 MG Tresiba Tresiba No Tresiba Synjardy XR Synjardy XR No Synjardy XR Crestor Crestor No Crestor Trulicity Trulicity No Trulicity Decara 250 Decara 250 No Decara 250 MCG (24194 MCG (07451 MCG (10007 UT) UT) UT) Losartan Losartan No 1{table QD Losartan Potassium Potassium t} Potassium 100 MG 100 MG 100 MG Metformin Metformin No 1{table BID Metformin HCl 1000 MG HCl 1000 MG t_with_ HCl 1000 meals} MG Metoprolol Metoprolol No 1{capsu QD Metoprolol Succinate Succinate le} Succinate 200 MG 200 MG 200 MG Metformin Metformin No 1{table BID Metformin HCl 1000 MG HCl 1000 MG t_with_ HCl 1000 meals} MG Aspirin 81 Aspirin 81 No 1{table QD Aspirin 81 81 MG 81 MG t} 81 MG Crestor Crestor No Crestor Losartan Losartan No 1{table QD Losartan Potassium Potassium t} Potassium 100 MG 100 MG 100 MG Tresiba Tresiba No Tresiba Metoprolol Metoprolol No 1{capsu QD Metoprolol Succinate Succinate le} Succinate 200 MG 200 MG 200 MG Decara 250 Decara 250 No Decara 250 MCG (07350 MCG (40266 MCG (15578 UT) UT) UT) Synjardy XR Synjardy XR No Synjardy XR Testosteron Testosteron No 1{ml} Testostero e Cypionate e Cypionate ne 200 MG/ML 200 MG/ML Cypionate 200 MG/ML Trulicity Trulicity No Trulicity Trulicity Trulicity No Trulicity Synjardy XR Synjardy XR No Synjardy XR Testosteron Testosteron No 1{ml} Testostero e Cypionate e Cypionate ne 200 MG/ML 200 MG/ML Cypionate 200 MG/ML Tresiba Tresiba No Tresiba Decara 250 Decara 250 No Decara 250 MCG (37716 MCG (49290 MCG (19590 UT) UT) UT) Losartan Losartan No 1{table QD Losartan Potassium Potassium t} Potassium 100 MG 100 MG 100 MG Metformin Metformin No 1{table BID Metformin HCl 1000 MG HCl 1000 MG t_with_ HCl 1000 meals} MG Metoprolol Metoprolol No 1{capsu QD Metoprolol Succinate Succinate le} Succinate 200 MG 200 MG 200 MG Aspirin 81 Aspirin 81 No 1{table QD Aspirin 81 81 MG 81 MG t} 81 MG Crestor Crestor No Crestor Synjardy XR Synjardy XR No Synjardy XR Decara 250 Decara 250 No Decara 250 MCG (13868 MCG (13882 MCG (02591 UT) UT) UT) Losartan Losartan No 1{table QD Losartan Potassium Potassium t} Potassium 100 MG 100 MG 100 MG Trulicity Trulicity No Trulicity Crestor Crestor No Crestor Aspirin 81 Aspirin 81 No 1{table QD Aspirin 81 81 MG 81 MG t} 81 MG Tresiba Tresiba No Tresiba Metoprolol Metoprolol No 1{capsu QD Metoprolol Succinate Succinate le} Succinate 200 MG 200 MG 200 MG Testosteron Testosteron No 1{ml} Testostero e Cypionate e Cypionate ne 200 MG/ML 200 MG/ML Cypionate 200 MG/ML Metformin Metformin No 1{table BID Metformin HCl 1000 MG HCl 1000 MG t_with_ HCl 1000 meals} MG Tresiba Tresiba No Tresiba Losartan Losartan No 1{table QD Losartan Potassium Potassium t} Potassium 100 MG 100 MG 100 MG Metformin Metformin No 1{table BID Metformin HCl 1000 MG HCl 1000 MG t_with_ HCl 1000 meals} MG Testosteron Testosteron No 1{ml} Testostero e Cypionate e Cypionate ne 200 MG/ML 200 MG/ML Cypionate 200 MG/ML Decara 250 Decara 250 No Decara 250 MCG (53404 MCG (08280 MCG (43929 UT) UT) UT) Metoprolol Metoprolol No 1{capsu QD Metoprolol Succinate Succinate le} Succinate 200 MG 200 MG 200 MG Trulicity Trulicity No Trulicity Crestor Crestor No Crestor Aspirin 81 Aspirin 81 No 1{table QD Aspirin 81 81 MG 81 MG t} 81 MG Synjardy XR Synjardy XR No Synjardy XR Decara 250 Decara 250 No Decara 250 MCG (20690 MCG (26264 MCG (75033 UT) UT) UT) Trulicity Trulicity No Trulicity Metoprolol Metoprolol No 1{capsu QD Metoprolol Succinate Succinate le} Succinate 200 MG 200 MG 200 MG Crestor Crestor No Crestor Aspirin 81 Aspirin 81 No 1{table QD Aspirin 81 81 MG 81 MG t} 81 MG Tresiba Tresiba No Tresiba Metformin Metformin No 1{table BID Metformin HCl 1000 MG HCl 1000 MG t_with_ HCl 1000 meals} MG Losartan Losartan No 1{table QD Losartan Potassium Potassium t} Potassium 100 MG 100 MG 100 MG Synjardy XR Synjardy XR No Synjardy XR Losartan Losartan No 1{table QD Losartan Potassium Potassium t} Potassium 100 MG 100 MG 100 MG Aspirin 81 Aspirin 81 No 1{table QD Aspirin 81 81 MG 81 MG t} 81 MG Testosteron Testosteron No 1{ml} Testostero e Cypionate e Cypionate ne 200 MG/ML 200 MG/ML Cypionate 200 MG/ML Decara 250 Decara 250 No Decara 250 MCG (50173 MCG (82344 MCG (79733 UT) UT) UT) Trulicity Trulicity No Trulicity Crestor Crestor No Crestor Synjardy XR Synjardy XR No Synjardy XR Metoprolol Metoprolol No 1{capsu QD Metoprolol Succinate Succinate le} Succinate 200 MG 200 MG 200 MG Tresiba Tresiba No Tresiba Metformin Metformin No 1{table BID Metformin HCl 1000 MG HCl 1000 MG t_with_ HCl 1000 meals} MG Immunizations Ordered Immunization Filled Immunization Date Status Commen ts Source Name Name Gentamicin 80mg Gentamicin 80mg 2020-12-03 Completed Comm on - :48:00 [facility] Gentamicin 80mg Gentamicin 80mg 2020-12-03 Completed Comm on - :48:00 [facility] Gentamicin 80mg Gentamicin 80mg 2020-12-03 Completed Comm on - :48:00 [facility] Gentamicin 80mg Gentamicin 80mg 2020-12-03 Completed Comm on - :48:00 [facility] Non-US Vaccine Non-US Vaccine 2020-10-21 Completed Villag [...] 177.8 cm WEIGHT 2021-05-21 10:26:00 126.1 kg height 2022-09-03 08:00:00 70 [in_i] Common [facility] - [facility] weight 2022-09-03 08:00:00 247.6 [lb_av] Common [facility] - [facility] temperature 2022-09-03 08:00:00 98.1 [degF] Common S pirit [facility] bmi 2022-09-03 08:00:00 35.52 kg/m2 Common [facility] oximetry 2022-09-03 08:00:00 99 % Common [facility] respiratory rate 2022-09-03 08:00:00 18 /min Comm on [facility] blood pressure 2022-09-03 08:00:00 156 mm[Hg] Common [facility] - systolic [facility] blood pressure 2022-09-03 08:00:00 87 mm[Hg] Common [facility] - diastolic [facility] BP Diastolic 2022-07-10 00:00:00 118 mm[Hg] [facility] Height 2022-07-10 00:00:00 70 [in_i] [facility] BMI (Body Mass Index) 2022-07-10 00:00:00 36.4 kg/m2 [facility] BP Systolic 2022-07-10 00:00:00 168 mm[Hg] [facility] Body Weight 2022-07-10 00:00:00 254 [lb_av] [facility] height 2022-06-02 16:00:00 70 [in_i] [facility] weight 2022-06-02 16:00:00 249.2 [lb_av] [facility] temperature 2022-06-02 16:00:00 98.6 [degF] Common [facility] bmi 2022-06-02 16:00:00 35.75 kg/m2 [facility] oximetry 2022-06-02 16:00:00 98 % [facility] respiratory rate 2022-06-02 16:00:00 16 /min Comm on [facility] blood pressure 2022-06-02 16:00:00 114 mm[Hg] Common [facility] - systolic [facility] blood pressure 2022-06-02 16:00:00 77 mm[Hg] [facility] height 2022-05-01 10:00:00 70 [in_i] Common S pirit [facility] weight 2022-05-01 10:00:00 264 [lb_av] [facility] temperature 2022-05-01 10:00:00 97.6 [degF] [facility] bmi 2022-05-01 10:00:00 37.88 kg/m2 [facility] oximetry 2022-05-01 10:00:00 99 % [facility] respiratory rate 2022-05-01 10:00:00 16 /min Comm [facility] blood pressure 2022-05-01 10:00:00 144 mm[Hg] Common [facility] - systolic [facility] blood pressure 2022-05-01 10:00:00 85 mm[Hg] Common [facility] - diastolic [facility] BP Diastolic 2022-04-23 00:00:00 82 mm[Hg] [facility] Height 2022-04-23 00:00:00 70 [in_i] [facility] BMI (Body Mass Index) 2022-04-23 00:00:00 38.3 kg/m2 [facility] BP Systolic 2022-04-23 00:00:00 121 mm[Hg] [facility] Body Weight 2022-04-23 00:00:00 267 [lb_av] [facility] height 2022-04-04 10:15:00 70 [in_i] [facility] weight 2022-04-04 10:15:00 265 [lb_av] [facility] temperature 2022-04-04 10:15:00 98.1 [degF] [facility] bmi 2022-04-04 10:15:00 38.02 kg/m2 [facility] oximetry 2022-04-04 10:15:00 99 % [facility] respiratory rate 2022-04-04 10:15:00 16 /min Comm on [facility] blood pressure 2022-04-04 10:15:00 132 mm[Hg] [facility] systolic [facility] blood pressure 2022-04-04 10:15:00 86 mm[Hg] [facility] - diastolic [facility] BP Diastolic 2022-01-27 00:00:00 80 mm[Hg] [facility] Height 2022-01-27 00:00:00 70 [in_i] [facility] BMI (Body Mass Index) 2022-01-27 00:00:00 41.6 kg/m2 [facility] BP Systolic 2022-01-27 00:00:00 137 mm[Hg] [facility] Body Weight 2022-01-27 00:00:00 290 [lb_av] [facility] height 2021-12-11 08:00:00 70 [in_i] [facility] weight 2021-12-11 08:00:00 275 [lb_av] [facility] temperature 2021-12-11 08:00:00 97.7 [degF] Common [facility] bmi 2021-12-11 08:00:00 39.45 kg/m2 [facility] oximetry 2021-12-11 08:00:00 98 % [facility] respiratory rate 2021-12-11 08:00:00 16 /min Comm on [facility] blood pressure 2021-12-11 08:00:00 168 mm[Hg] Common [facility] - systolic [facility] blood pressure 2021-12-11 08:00:00 83 mm[Hg] [facility] diastolic [facility] height 2021-10-10 08:15:00 70 [in_i] Common [facility] weight 2021-10-10 08:15:00 274 [lb_av] [facility] temperature 2021-10-10 08:15:00 97.6 [degF] [facility] - [facility] bmi 2021-10-10 08:15:00 39.31 kg/m2 Common S [facility]irit [facility] oximetry 2021-10-10 08:15:00 98 % [facility] respiratory rate 2021-10-10 08:15:00 18 /min [facility] blood pressure 2021-10-10 08:15:00 148 mm[Hg] [facility] - systolic [facility] blood pressure 2021-10-10 08:15:00 89 mm[Hg] [facility] - diastolic [facility] height 2021-09-05 10:00:00 70 [in_i] [facility] weight 2021-09-05 10:00:00 270 [lb_av] [facility] temperature 2021-09-05 10:00:00 97.2 [degF] [facility] bmi 2021-09-05 10:00:00 38.74 kg/m2 [facility] oximetry 2021-09-05 10:00:00 96 % Common [facility] blood pressure 2021-09-05 10:00:00 146 mm[Hg] [facility] - systolic [facility] blood pressure 2021-09-05 10:00:00 89 mm[Hg] [facility] - diastolic [facility] height 2021-08-09 13:45:00 70 [in_i] [facility] weight 2021-08-09 13:45:00 270 [lb_av] [facility] temperature 2021-08-09 13:45:00 98 [degF] [facility] bmi 2021-08-09 13:45:00 38.74 kg/m2 [facility] oximetry 2021-08-09 13:45:00 96 % [facility] blood pressure 2021-08-09 13:45:00 131 mm[Hg] [facility] - systolic [facility] blood pressure 2021-08-09 13:45:00 75 mm[Hg] [facility] - diastolic [facility] height 2021-07-24 15:30:00 70 [in_i] [facility] - [facility] weight 2021-07-24 15:30:00 275 [lb_av] [facility] - [facility] temperature 2021-07-24 15:30:00 98.3 [degF] [facility] - [facility] bmi 2021-07-24 15:30:00 39.45 kg/m2 [facility] oximetry 2021-07-24 15:30:00 97 % [facility] blood pressure 2021-07-24 15:30:00 166 mm[Hg] [facility] - systolic [facility] blood pressure 2021-07-24 15:30:00 92 mm[Hg] [facility] - diastolic [facility] Height 2021-07-11 00:00:00 70 [in_i] [facility] BMI (Body Mass Index) 2021-07-11 00:00:00 39.7 kg/m2 [facility] Body Weight 2021-07-11 00:00:00 276.6 [lb_av] [facility] height 2021-06-13 13:30:00 70 [in_i] Common pirit [facility] weight 2021-06-13 13:30:00 275 [lb_av] [facility] temperature 2021-06-13 13:30:00 98.3 [degF] [facility]irit [facility] bmi 2021-06-13 13:30:00 39.45 kg/m2 [facility] oximetry 2021-06-13 13:30:00 99 % [facility] - [facility] blood pressure 2021-06-13 13:30:00 158 mm[Hg] [facility] - systolic [facility] blood pressure 2021-06-13 13:30:00 85 mm[Hg] [facility] - diastolic [facility] height 2021-06-07 15:00:00 70 [in_i] [facility] weight 2021-06-07 15:00:00 275 [lb_av] [facility] temperature 2021-06-07 15:00:00 98.2 [degF] [facility] bmi 2021-06-07 15:00:00 39.45 kg/m2 [facility] oximetry 2021-06-07 15:00:00 95 % [facility] blood pressure 2021-06-07 15:00:00 146 mm[Hg] [facility] systolic [facility] blood pressure 2021-06-07 15:00:00 78 mm[Hg] [facility] - diastolic [facility] WEIGHT 2021-05-30 06:36:00 126.4 kg HEIGHT 2021-05-30 06:36:00 177.8 cm HEIGHT 2021-05-21 10:26:00 177.8 cm WEIGHT 2021-05-21 10:26:00 126.1 kg BP Diastolic 2021-04-23 00:00:00 74 mm[Hg] [facility] Height 2021-04-23 00:00:00 70 [in_i] [facility] BMI (Body Mass Index) 2021-04-23 00:00:00 40.5 kg/m2 [facility] BP Systolic 2021-04-23 00:00:00 119 mm[Hg] [facility] Body Weight 2021-04-23 00:00:00 282.4 [lb_av] [facility] BP Diastolic 2021-01-02 00:00:00 87 mm[Hg] [facility] Height 2021-01-02 00:00:00 70 [in_i] [facility] BMI (Body Mass Index) 2021-01-02 00:00:00 39.5 kg/m2 [facility] BP Systolic 2021-01-02 00:00:00 147 mm[Hg] [facility] Body Weight 2021-01-02 00:00:00 275 [lb_av] [facility] BP Diastolic 2020-10-10 00:00:00 98 mm[Hg] [facility] Height 2020-10-10 00:00:00 70 [in_i] [facility] BMI (Body Mass Index) 2020-10-10 00:00:00 39 kg/m2 [facility] BP Systolic 2020-10-10 00:00:00 138 mm[Hg] [facility] Body Weight 2020-10-10 00:00:00 272 [lb_av] [facility] Procedures This patient has no known procedures. Plan of Care Planned Activity Planned Date Details Comments Source Future Scheduled 2024-11-02 DTAP/TDAP/TD VACCINES [facility] 00:00:00 (3 - Td or Tdap) [code Medic al Center = DTAP/TDAP/TD VACCINES (3 - Td or Tdap)] Future Scheduled 2022-11-[address] [facility] Test 00:00:00 (12+) [code = Medical Center DEPRESSION SCREENING (12+)] Diagnostic Test 2022-07-10 glucose, fingerstick, [facility] abby Family Pending 00:00:00 blood [code = glucose, Pract ice fingerstick, blood] Diagnostic Test 2022-07-10 hemoglobin A1C, [facility]il Pending 00:00:00 fingerstick [code = Practice hemoglobin A1C, fingerstick] Diagnostic Test 2022-07-10 CMP, serum or plasma Vill [facility] Family Pending 00:00:00 [code = CMP, serum or Practi ce plasma] Diagnostic Test 2022-07-10 CBC w/ auto diff [code Vi llage Family Pending 00:00:00 = CBC w/ auto diff] Practice Diagnostic Test 2022-07-10 lipid panel, serum Villag e Family Pending 00:00:00 [code = lipid panel, Practic e serum] Diagnostic Test 2022-07-10 TSH, serum or plasma Vill [facility] Family Pending 00:00:00 [code = TSH, serum or Practi ce plasma] Diagnostic Test 2022-07-10 T4, free, serum [code Nataly abby Family Pending 00:00:00 = T4, free, serum] Practice Diagnostic Test 2022-07-10 microalbumin/creatinin Vi llage Family Pending 00:00:00 e, mass ratio, urine Practic e [code = microalbumin/creatinin e, mass ratio, urine] Future Scheduled 2022-07-03 INFLUENZA VACCINE (#1) [facility] 00:00:00 [code = INFLUENZA Medical Ce nter VACCINE (#1)] Future Scheduled 2022-05-[address] [facility] Test 00:00:00 Counseling and Medical Cente r Screening (12+) [code = Tobacco Cessation Counseling and Screening (12+)] Future Scheduled 2022-05-07 [facility] (#1[facility] [code = COVID-19 MD And erson Cancer Vaccination (#1)] Center Future Scheduled 2013-08-[address] [facility] 00:[facility]:00 (procedure) [code = Medical Center [id number]] Future Scheduled 2011 SHINGLES VACCINES ([address] [facility] 00:00:00 of 2) [code = SHINGLES Medic al Center VACCINES (1 of 2)] Future Scheduled 1979 HEPATITIS C SCREENING [facility] 00:00:00 [code = HEPATITIS C Medical Center SCREENING] Future Scheduled 1961 COVID-19 VACCINE (#1) [facility] 00:00:00 [code = COVID-[address] VACCINE (#1)] Future Scheduled [address] [facility] 00:00:00 (combo) [code = CT Medical C enter Colonography (combo)] Future Scheduled [address] [facility] 00:[facility]:00 malignant neoplasm of Medica l Center colon (procedure) [code = 726444610] Future Scheduled [address] [facility] 00:00:00 malignant neoplasm of Medica l Center colon (procedure) [code = 858972251] Future Scheduled [address] [facility] 00:00:00 malignant neoplasm of Medica l Center colon (procedure) [code = 689833155] Future Scheduled [address] [facility] 00:00:00 malignant neoplasm of Medica l Center colon (procedure) [code = 441454775] Future Scheduled 1961 Sigmoidoscopy [code = [facility] 00:[facility] Sigmoidoscopy] Medical Timothy sauceda Encounters Start End Encounter Admission Attending Care Care Encounter Source Date/Time Date/Time Type Type Clinicians Facility Department ID 2021-11-27 Outpatient [place], STLMLC [facility] [id number] Common 13:21:10 Anshu [id number] [facility] 2021-11-27 Outpatient [place], [facility]LMLC [facility] [id number] Common 13:13:58 Anshu [id number] [facility] 2021-11-27 Outpatient [place], [facility]LMLC [facility] [id number] Common 13:06:30 Anshu [id number] [facility] 2021-11-27 Outpatient [place], [facility] [id number] Common 13:00:38 Anshu [id number] [facility] 2021-11-27 Outpatient [place], STLC [facility] [id number] Common 12:08:29 Anshu [id number] [facility] 2021-08-11 Inpatient WELSH, SLE Surgery [id number] [facility] 03:16:51 AYAN 2021-01-04 Outpatient SYSTEM, [facility] CANDIDA [id number] 07:53:56 PROVIDER Angel davis 2022-09-03 2022-09-03 OFFICE [facility] [id number] Co mmon 00:00:00 00:00:00 VISIT [facility] LEVEL 4 [facility] 2022-07-14 2022-07-14 Outpatient Daniel_T VFP [facility] [id number] [facility] 00:00:00 00:00:00 [id number] Family Practic e 2022-07-10 2022-07-10 Outpatient Daniel_T VFP [facility] [id number] [facility] 00:00:00 00:00:00 [id number] Family Practic e 2022-07-10 2022-07-10 Luis VFP [place] - [id number] V illage 00:00:00 00:00:00 [facility] Family VegaAnanth - Elizabeth conde MD: [id number] VM_HOU_Shadanica okeefe [place] [facility], [address], [place] [address] , Ph. 2022-06-04 2022-06-04 Outpatient Daniel_T VFP VFP [id number] [facility] 00:00:00 00:00:00 [id number] Family Practic e 2022-06-02 2022-06-02 OFFICE STLMLC [facility] [id number] Co mmon 00:00:00 00:00:00 VISIT Juan Pablo [facility] - [facility] LEVEL 5 [facility] 2022-05-14 2022-05-14 Outpatient Daniel_T VFP VFP [id number] [facility] 12:21:00 12:21:00 [id number] Family Practic e 2022-05-01 2022-05-01 OFFICE [facility] [id number] Co mmon 00:00:00 00:00:00 VISIT Juan Pablo [facility] - [facility] LEVEL 5 [facility] 2022-04-23 2022-04-23 Outpatient Daniel_T VFP VFP [id number] [facility] 03:46:00 03:46:00 [id number] Family Practic e 2022-04-23 2022-04-23 Luis VFP [place] - [id number] V illage 00:00:00 00:00:00 [facility] Family Vega, Ananth - Pracabilio conde MD: [id number] ALLEN_[email or web address] Francisco e [facility], [address], [place] [address] , Ph. 2022-04-22 2022-04-22 Outpatient Daniel_T VFP VFP [id number] [facility] 12:29:00 12:29:00 [id number] Family Practic e 2022-04-04 2022-04-04 OFFICE [facility] [id number] Co mmon 00:00:00 00:00:00 VISIT Juan Pablo DUKE PT - CHI LEVEL 4 [facility] 2022-01-30 2022-01-30 Outpatient Daniel_T VFP VFP [id number] [id number] [facility] 08:56:00 08:56:00 [id number] Family Practic e 2022-01-27 2022-01-27 Outpatient Daniel_T VFP VFP [id number] 0-20 [facility] 06:11:00 06:11:00 [id number] Family Practic e 2022-01-27 2022-01-27 Luis VFP [place] - [id number] V illage 00:00:00 00:00:00 Dilroseline [facility] Family VegaAnanth - Elizabeth conde MD: [id number] VM_HOU_Shad e Shadow ow [place] [address], [place] [address] , Ph. 2021-12-11 2021-12-11 OFFICE STLC STLC [id number] Co mmon 00:00:00 00:00:00 VISIT [facility] ESTAB PT - CHI LEVEL 4 [facility] 2021-12-02 2021-12-02 Telephone Casey, Torrie.2.840.1 [id number] [facility] 00:00:00 00:00:00 Dian [id number] ity of [id number] [place] .[id number] .8 [facility] 2021-10-28 2021-10-28 (TEL) STLC STLC [id number] Co mmon 00:00:00 00:00:00 Spirit - CHI [facility] 2021-10-10 2021-10-10 OFFICE STLC STLC [id number] Co mmon 00:00:00 00:00:00 VISIT Spirit ESTAB PT - CHI LEVEL 4 [facility] 2021-10-01 2021-10-01 (TEL) STLC STLC [id number] Co mmon 00:00:00 00:00:00 Spirit - [facility] 2021-09-05 2021-09-05 OFFICE STLC STLC [id number] Co mmon 00:00:00 00:00:00 VISIT Spirit ESTAB PT - CHI LEVEL 4 [facility] 2021-08-19 2021-08-19 Outpatient Daniel_T VFP VFP [id number] [id number] [facility] 11:24:00 11:24:00 [id number] Family Practic e 2021-08-19 2021-08-19 Outpatient Daniel_T VFP VFP [id number] 0-20 [facility] 11:24:00 11:24:00 [id number] Family Practic e 2021-08-19 2021-08-19 Outpatient Daniel_T VFP VFP [id number] 0-20 [facility] 11:24:00 11:24:00 [id number] Family Practic e 2021-08-09 2021-08-09 Postop STLMLC STLMLC [id number] Co mmon 00:00:00 00:00:00 visit [facility] 2021-07-26 2021-07-26 Outpatient Daniel_T VFP VFP [id number] 0-20 [facility] 04:29:00 04:29:00 [id number] Family Practic e 2021-07-24 2021-07-24 Postop STLMLC STLMLC [id number] Co mmon 00:00:00 00:00:00 visit [facility] 2021-07-16 2021-07-16 Outpatient Daniel_T VFP VFP [id number] 0-20 [facility] 06:34:00 06:34:00 [id number] Family Practic e 2021-07-11 2021-07-11 Outpatient Daniel_T VFP VFP [id number] 0-20 [facility] 10:34:00 10:34:00 [id number] Family Practic e 2021-07-11 2021-07-11 Luis VFP [place] - [id number] V illage 00:00:00 00:00:00 [facility] Family VegaAnanth MD: [id number] VM_HOU_Shad e Shadow [facility], [address], [place] [address] , Ph. 2021-06-13 2021-06-13 Postop STLMLC STLMLC [id number] Co mmon 00:00:00 00:00:00 visit [facility] 2021-06-07 2021-06-07 NON-BILLAB STLMLC STLMLC [id number] Common 00:00:00 00:00:00 LE VISIT [facility] 2021-05-28 2021-05-28 Outpatient STLMLC STLMLC [id number] Common 00:00:00 00:00:00 [facility] 2021-05-23 2021-05-23 Outpatient STLMLC STLMLC [id number] Common 00:00:00 00:00:00 [facility] 2021-05-21 2021-05-21 Outpatient EL SLEH SLEH [id number] [facility] 00:00:00 00:00:00 2021-05-21 2021-05-21 Outpatient STLMLC STLMLC [id number] Common 00:00:00 00:00:00 [facility] 2021-05-20 2021-05-20 Outpatient STLMLC STLMLC [id number] Common 00:00:00 00:00:00 [facility] 2021-05-13 2021-05-13 Outpatient STLMLC STLMLC [id number] Common 00:00:00 00:00:00 [facility] 2021-05-02 2021-05-02 Outpatient STLMLC STLMLC [id number] Common 00:00:00 00:00:00 [facility] 2021-04-25 2021-04-25 Outpatient Daniel_T VFP VFP [id number] 0-20 [facility] 08:18:00 08:18:00 [id number] Family Practic e 2021-04-25 2021-04-25 Outpatient Daniel_T VFP VFP [id number] 0-20 [facility] 08:18:00 08:18:00 [id number] Family Practic e 2021-04-24 2021-04-24 Outpatient Daniel_T VFP VFP [id number] 0-20 [facility] 10:46:00 10:46:00 [id number] Family Practic e 2021-04-23 2021-04-23 Outpatient Daniel_T VFP VFP [id number] 0-20 [facility] 06:26:00 06:26:00 [id number] Family Practic e 2021-04-23 2021-04-23 Luis VFP [place] - [id number] V illage 00:00:00 00:00:00 [facility] Family VegaAnanth - Elizabeth conde MD: [id number] VM_HOU_Shad e Shadow [facility] [place] [facility], [address], [place] [address] , Ph. 2021-04-11 2021-04-11 Outpatient STLMLC STLMLC [id number] Common 00:00:00 00:00:00 [facility] 2021-04-02 2021-04-02 Outpatient STLMLC STLMLC [id number] Common 00:00:00 00:00:00 [facility] 2021-03-20 2021-03-20 Outpatient STLMLC STLMLC [id number] Common 00:00:00 00:00:00 [facility] 2021-03-12 2021-03-12 Outpatient STLMLC STLMLC [id number] Common 00:00:00 00:00:00 [facility] 2021-03-11 2021-03-11 Outpatient STLMLC STLMLC [id number] Common 00:00:00 00:00:00 [facility] 2021-03-08 2021-03-08 Outpatient STLMLC STLMLC [id number] Common 00:00:00 00:00:00 [facility] 2021-03-08 2021-03-08 Outpatient STLMLC STLMLC [id number] Common 00:00:00 00:00:00 [facility] 2021-03-08 2021-03-08 Outpatient STLMLC STLMLC [id number] Common 00:00:00 00:00:00 [facility] 2021-03-08 2021-03-08 Outpatient STLMLC STLMLC [id number] Common 00:00:00 00:00:00 [facility] 2021-03-01 2021-03-01 Outpatient STLMLC STLMLC [id number] Common 00:00:00 00:00:00 [facility] 2021-02-07 2021-02-07 Outpatient CELINE KEARNS MDA MDA [id number] 06:49:52 06:49:52 CELESTE davis 2021-01-21 2021-01-21 Outpatient Daniel_T VFP VFP [id number] 0-20 [facility] 08:21:00 08:21:00 [id number] Family Practic e 2021-01-04 2021-01-04 Outpatient Daniel_T VFP VFP [id number] 0-20 [facility] 01:28:00 01:28:00 [id number] Family Practic e 2021-01-02 2021-01-02 Outpatient Daniel_T VFP VFP [id number] 0-20 [facility] 11:37:00 11:37:00 [id number] Family Practic e 2021-01-02 2021-01-02 Outpatient STLMLC STLMLC [id number] Common 00:00:00 00:00:00 [facility] 2021-01-02 2021-01-02 Luis VFP [place] - [id number] V illage 00:00:00 [facility]:00:00 [facility] Family VegaAnanth - Elizabeth conde MD: [id number] VM_HOU_Shadanica e Shadow ow [place] [facility], [address], [place] [address] , Ph. 2020-12-13 2020-12-13 Outpatient STLMLC STLMLC [id number] Common 00:00:00 00:00:00 [facility] 2020-12-03 2020-12-03 Outpatient STLMLC STLMLC [id number] Common 00:00:00 00:00:00 [facility] 2020-11-17 2020-11-17 Outpatient Daniel_T VFP VFP [id number] 0-20 [facility] 01:27:00 01:27:00 [id number] Family Practic e 2020-11-14 2020-11-14 Outpatient STLMLC STLMLC [id number] Common 00:00:00 00:00:00 [facility] 2020-11-07 2020-11-07 Outpatient STLMLC STLMLC [id number] Common 00:00:00 00:00:00 [facility] 2020-11-07 2020-11-07 Outpatient STLMLC STLMLC [id number] Common 00:00:00 00:00:00 [facility] 2020-10-16 2020-10-16 Outpatient Daniel_T VFP VFP [id number] 0-20 [facility] 06:20:00 06:20:00 [id number] Family Practic e 2020-10-10 2020-10-10 Outpatient Daniel_T VFP VFP [id number] 0-20 [facility] 12:24:00 12:24:00 Family Practic e 2020-10-10 2020-10-10 Luis VFP [place] - [id number] V illage 00:00:00 00:00:00 [facility] Family Vega, Ananth - Elizabeth conde MD: [id number] VM_HOU_Ignacio e Shadow [facility], [facility] [address], [place] [address] , Ph. 2020-10-09 2020-10-09 Outpatient Daniel_T VFP VFP [id number] 0-20 [facility] 05:40:00 05:40:00 Family Practic e 2020-09-26 2020-09-26 Outpatient STLMLC STLMLC [id number] Common 00:00:00 00:00:00 [facility] 2020-09-18 2020-09-18 Outpatient Daniel_T VFP VFP [id number] 0-20 [facility] 11:12:00 11:12:00 [id number] Family Practic e 2020-08-23 2020-08-23 Outpatient Daniel_T VFP VFP [id number] 0-20 [facility] 10:14:00 10:14:00 [id number] Family Practic e 2020-07-04 2020-07-04 Outpatient Daniel_T VFP VFP [id number] 0-20 [facility] 10:46:00 10:46:00 [id number] Family Practic e 2020-05-04 2020-05-04 Telephone SHIRA Velázquez [id number] [facility] 00:00:00 00:00:00 David COSBY [id number] i ty [facility] [id number] Evan as [phone] [facility] [address] 2020-05-04 2020-05-04 Telephone SHIRA Velázquez [id number] 00:00:00 00:00:00 David COSBY [id number] [facility] [id number] [id number] 2020-05-03 2020-05-03 Laboratory Lab, Adc Fam Pob I [facility] 1.2. [id number] [facility] 08:08:53 08:28:53 Only [facility] [id number] ity of [place] 4.2.7.2.686 Evan as Professio [phone] Me dical [address] 2020-05-03 2020-05-03 Laboratory Lab, [facility] [id number] 08:08:53 08:28:53 Only Fam Pob I Health 350.1.13.10 [place] 4.2.7.2.686 Professio [phone] nal [address] 2020-05-03 2020-05-03 Outpatient R [facility] [id number] Univers 08:00:00 08:00:00 [facility] Results Test Description Test Time Test Comments Results Result Comments Source Hemoglobin A1c measurement device panel 2022-07-10 08:25:52 Test Item Value Reference Range Interpretation Comme nts Hemoglobin A1c/Hemoglobin.total in Blood (test code = 4548-4) 7.2 % 5.7-6.4 [facility] PracticeGlucose [Mass/volume] in Capillary [id number] 08:25:41 Test Item Value Reference Range Interpretation Comments Blood Glucose: mg/dl (test code = Blood 176 Glucose: mg/dl) [facility] PracticeHemoglobin A1c measurement device [id number] 13:43:07 Test Item Value Reference Range Interpretation Comments Hemoglobin A1C Fingerstick: (test code 8.9 = Hemoglobin A1C Fingerstick:) [facility] PracticeHemoglobin A1c measurement device [id number] 13:43:07 Test Item Value Reference Range Interpretation Comments Hemoglobin A1C Fingerstick: (test code 8.9 = Hemoglobin A1C Fingerstick:) [facility] PracticeGlucose [Mass/volume] in Capillary [id number] 13:39:30 Test Item Value Reference Range Interpretation Comments Blood Glucose: mg/dl (test code = Blood 303 Glucose: mg/dl) [facility] PracticeGlucose [Mass/volume] in Capillary [id number] 13:39:30 Test Item Value Reference Range Interpretation Comments Blood Glucose: mg/dl (test code = Blood 303 Glucose: mg/dl) [facility] PracticeGlucose [Mass/volume] in Capillary [id number] 15:50:10 Test Item Value Reference Range Interpretation Comments Blood Glucose: mg/dl (test code = Blood 279 Glucose: mg/dl) [facility] [id number] 15:49:57 Test Item Value Reference Range Interpretation Comments Hemoglobin A1C Fingerstick: (test code 8.4 = Hemoglobin A1C Fingerstick:) [facility] CenterT[facility] [id number] 17:14:00Surgical Pathology Report Case: [id number] Authorizing Provider: Ayan Welsh MD Collected: 05/30/2021 01:42 PM Ordering Location: [facility] PERIOPERATIVE Received: 05/31/2021 09:21 AM SERVICES Pathologist: Bernadine Christie MD Specimens: A) - Prostate, PROSTATE AND SEMINAL VESICLES B) - Lymph Node, ANTERIOR PERIPROSTATIC LYMPH NODE A. PROSTATE, ROBOTIC ASSISTED LAPAROSCOPIC RADICAL PROSTATECTOMY:- ADENOCARCINOMA, ASHLIE 3+4=7, ORGAN CONFINED, SURGICAL MARGINS NEGATIVE SEMINAL VESICLES, ROBOTIC ASSISTED LAPAROSCOPIC RADICAL PROSTATECTOMY:- NO PATHOLOGIC DIAGNOSISB. SOFT TISSUE, LABELED "LYMPH NODES, ANTERIOR PERIPROSTATIC", EXCISION:- BENIGN FIBROADIPOSE TISSUE- NO LYMPHOID TISSUE IDENTIFIED Signing Pathologist Direct Phone Line: [phone] signed by Bernadine Christie MD on 06/10/2021 at 5:14 PMThe adenocarcinoma is located in the bilateral peripheral and transitionzones with the largest amount of tumor in the transition zones. All tumor is confined to the prostate and the surgical margins and seminal vesicles are negative. Sanderson pattern 4 represents no more than 10% of the total tumor mass. PROSTATE GLAND: Radical Prostatectomy (PROSTATE GLAND: RADICAL PROSTATECTOMY - All Specimens)8th Edition - Protocol posted: 12/28/2019SPECIMEN Procedure: Radical prostatectomy Prostate Size: Prostate Weight (g): 39.2 g Prostate Greatest Dimension (Centimeters): 4 cm Additional Dimension (Centimeters): 3.1 cm Additional Dimension (Centimeters): 3 cmTUMOR Histologic Type: Acinar adenocarcinoma Histologic Grade: Grade Group and Sanderson Score: Grade group 2 (Ashlie Score 3+ 4 = 7) Percentage of Pattern 4: [...] neoplasia (PIN) Additional Findings: Nodular prostatic hyperplasia 28159, 45098Cdxgagka cancerA. ProstateB. Lymph node, anterior periprostatic lymph nodeA: Received is a radical prostatectomy specimen in formalin with the patient's name (Luiz Chau) with accession number [id number] andis a prostate with bilateral seminal vesicles and [...] and focally ragged. Ink code: Right side-inked inblack, left side-inked in blue. The prostate is serially sectioned from apex to base in entirety, and the sections reveals pink-warner to kaur-white, homogeneous, focally nodular prostatic parenchyma throughout. No discrete masses are identified.The sectioning of the seminal vesicles reveals a pink-warner unremarkable cut surface. The total number of slices including seminal vesicles and vas deferentia are10. Section code: Apical margins are submitted in cassette A1, bladder neck margins are submitted incassette A2, and the prostate slices are submitted in cassettes A3-A8.The right and left seminal vesicles at the base of the prostate are submitted in cassette A9, the seminal vesicle tips along with the vas deferentia are submitted in cassette A10. SDH/ewB. Received fresh labeled with the patient's na me, medical record number and "lymph node" is a 5.5 x 3.7 x 1.2 cm irregular portion of adipose tissue. The specimen is serially sectioned to reveal a 0.5 cm possible, mostly fat replaced lymph node. Specimen is entirely submitted.Section code:B1: 1 possible intact lymph nodeB2-B9: Remainder of specimenChelsTANA Mendez, SCOTT (ASCP)cmPerformed.[facility], Department of Pathology,[address] [place] [address], [facility], Departmentof Pathology, [address] [place] [address], [facility], Department of Pathology, [address] [place] [address], PEKH-GLUCOSE [id number] 08:02:00 Test Item Value Reference Range Interpretation Comments POC-GLUCOSE METER 104 mg/dL 70-110 : TESTED A T [facility] 6720 (BEAKER) (test code = GAMA Sauceda [facility], 1538) 11537: Cell Technician/Techni sherita ID = [id number] for EULALIO CURIEL HEMOGLOBIN AND [id number] 06:45:00 Test Item Value Reference Range Interpretation Comments HEMOGLOBIN (BEAKER) (test code = 10.8 GM/DL 13.7-17.5 L 410) HEMATOCRIT (BEAKER) (test code = 34.5 % 40.1-51.0 L 411) Cell Technician ID - [id number] METABOLIC [id number] 06:44:00 Test Item Value Reference Range Interpretation [...] S NOT APPLICABLE FOR DIALYSIS PATIEN TS. Cell Technician ID - CARLOS MPOCT-GLUCOSE [id number] 22:53:00 Test Item Value Reference Range Interpretation Comments POC-GLUCOSE METER 210 mg/dL 70-110 H : TESTED A T [facility] 6720 ([employer]) (test code = [facility], 153) 73907: Cell Technician/Techni sherita ID = [id number] for ON UOHA, FABIÁN POCT-GLUCOSE [id number] 16:54:00 Test Item Value Reference Range Interpretation Comments POC-GLUCOSE METER 181 mg/dL 70-110 H : TESTED A T [facility] 6720 ([employer]) (test code = [facility], 1538) 02570: Cell Technician/Techni sherita ID = [id number] for DA VIS, KEYAIRA POCT-GLUCOSE [id number] 11:24:00 Test Item Value Reference Range Interpretation Comments POC-GLUCOSE METER 140 mg/dL 70-110 H : TESTED A T [facility] 6720 ([employer]) (test code [facility], = 1538) 94991: Cell Technician/Techni sherita ID = [id number] for JAIM E MAGGIE, TENZIN POCT-GLUCOSE [id number] 10:12:00 Test Item Value Reference Range Interpretation Comments POC-GLUCOSE METER 88 mg/dL 70-110 : TESTED A T [facility] 6720 ([employer]) (test code = [facility], 1538) 26358: Cell Technician/Techni sherita ID = [id number] for JAIM E MAGGIE, TENZIN POCT-GLUCOSE [id number] 07:48:00 Test Item Value Reference Range Interpretation Comments POC-GLUCOSE METER 74 mg/dL 70-110 : TESTED A T [facility] 6720 (BEAKER) (test code = [facility], 1538) 52189: Cell Technician/Techni sherita ID = [id number] for JAIM E MAGGIE, TENZIN BASIC METABOLIC [id number] 05:47:00 Test Item Value Reference Range Interpretation [...] S NOT APPLICABLE FOR DIALYSIS PATIEN TS. Cell Technician ID - CARLOS MHEMOGLOBIN AND [id number] 05:04:00 Test Item Value Reference Range Interpretation Comments HEMOGLOBIN (BEAKER) (test code = 11.2 GM/DL 13.7-17.5 L 410) HEMATOCRIT (BEAKER) (test code = 35.3 % 40.1-51.0 L 411) Cell Technician ID - [id number]-GLUCOSE [id number] 21:14:00 Test Item Value Reference Range Interpretation Comments POC-GLUCOSE METER 218 mg/dL 70-110 H : TESTED A T [facility] 6720 (BEAKER) (test code = [facility] [place], 1538) 76137: Cell Technician/Techni sherita ID = [id number] for NADIRA JACKSON BASIC METABOLIC [id number] 16:06:00 Test Item Value Reference Range Interpretation [...] S NOT APPLICABLE FOR DIALYSIS PATIEN TS. Cell Technician ID - DBHEMOGLOBIN AND [id number] 15:44:00 Test Item Value Reference Range Interpretation Comments HEMOGLOBIN (BEAKER) (test code = 12.0 GM/DL 13.7-17.5 L 410) HEMATOCRIT (BEAKER) (test code = 38.1 % 40.1-51.0 L 411) Cell Technician ID - [id number]-GLUCOSE [id number] 15:13:00 Test Item Value Reference Range Interpretation Comments POC-GLUCOSE METER 201 mg/dL 70-110 H : TESTED A T [facility] 6720 (BEAKER) (test code = [facility] [employer] [facility], 1538) 79988: Cell Technician/Techni sherita ID = [id number] for BERNADINE GOODWIN POCT-GLUCOSE [id number] 07:13:00 Test Item Value Reference Range Interpretation Comments POC-GLUCOSE METER 98 mg/dL 70-110 : TESTED A T [facility] 6720 (BEAKER) (test code = [facility], 1538) 03440: Cell Technician/Techni sherita ID = [id number] for NENO RAMEY PH
[2022-11-14] MEDS ORDERED: ASPIRIN 81 MG CHEWABLE TABLET ONE (13:38)
[2022-11-14] MEDS ORDERED: MORPHINE 4 MG/ML SYR ONE ×2 (13:39→15:23)
[2022-11-14] MEDS ORDERED: ONDANSETRON 4 MG/2 ML VIAL ONE ×2 (13:39→15:23)
--- NOTE | 2022-11-14 13:40 | RAD REPORT ---
EXAM DESCRIPTION: Rudolph Single View11/14/2022 1:35 pm CLINICAL HISTORY: Chest pain COMPARISON: 2020 FINDINGS: The lungs appear clear of acute infiltrate. The heart is normal size IMPRESSION: No acute abnormalities displayed
[2022-11-14 14:10] LABS: SARS-CoV-2 Antigen Rapid Res Negative (Negative)
[2022-11-14 14:23] LABS: Absolute Lymphocytes (CBC) 1.4 K/uL (0.7-4.9); Lymphocytes % 16.8 % (15.3-44.8); MCV 90.5 fL (80-100); MPV 7.4 fL (7.6-11.3); RBC Red Blood Cell Count 4.75 M/uL (4.33-5.43)
[2022-11-14 14:42] LABS: Albumin 3.3 g/dL (3.4-5.0); Bilirubin Direct 0.1 mg/dL (0-0.2); Bilirubin Total 0.3 mg/dL (0.2-1.0); Magnesium 1.9 mg/dL (1.6-2.4); Potassium 3.5 mmol/L (3.5-5.1); Protein, Total 7.7 g/dL (6.4-8.2); Troponin High Sensitivity 8.4 pg/mL (<58.9)
[2022-11-14 15:08] LABS: Protime INR 1.28
--- NOTE | 2022-11-14 15:20 | RAD REPORT ---
EXAM DESCRIPTION: CT - Chest For Pe Angio - 11/14/2022 3:07 pm CLINICAL HISTORY: Chest pain COMPARISON: 2015 TECHNIQUE: Dynamically enhanced axial 3 mm thick images of the chest were obtained during administra tion of <100> mL Isovue 370 IV contrast. Coronal and oblique reconstruction images were generated and reviewed. Exam utilizes a protocol for optimal evaluation of pulmonary arterial tree. Maximum intensity projections 3D imaging was utilized All CT scans are performed using dose optimization technique as appropriate and may include automated exposure control or mA/KV adjustment according to patient size. FINDINGS: A pulmonary embolus is not seen. A thoracic aortic aneurysm is not noted. A pleural effusion is not seen. A pericardial effusion is not seen. A lung consolidation is not present. IMPRESSION: Negative for a pulmonary embolism.
[2022-11-14] MEDS ORDERED: ENOXAPARIN 100 MG/ML SYR SQ ONE (15:30)
--- NOTE | 2022-11-14 15:37 | RAD REPORT ---
EXAM DESCRIPTION: CT - Abdomen Pelvis W Contrast - 11/14/2022 3:27 pm CLINICAL HISTORY: Abdominal pain COMPARISON: 2019 TECHNIQUE: Computed axial tomography of the abdomen pelvis was obtained. 100 cc Isovue-300 was admin istered intravenously. Oral contrast was not requested which limits evaluation of bowel and appendix All CT scans are performed using dose optimization technique as appropriate and may include automated exposure control or mA/KV adjustment according to patient size. FINDINGS: The liver, spleen, pancreas, adrenal and right kidney appear unremarkable. Small left renal cyst. Normal appendix Prostatectomy. There is no evidence of diverticulitis. IMPRESSION: No acute abnormality is displayed.
--- NOTE | 2022-11-14 15:54 | EDPHYS ---
Physician Documentation [facility] Name: Reji Wallace Age: 62 yrs Sex: Male : 1960 Arrival Date: 11/14/2022 Time: 13:04 Bed 8 Private MD: ED Physician Roberto So HPI: 11/14 13:15 This 62 yrs old Black Male presents to ER via Wheelchair with complaints of Chest Pain. jmm 13:15 The patient or guardian reports chest pain that is located primarily in the substernal [facility] area. Onset: acutely, .75 hour(s) ago. The pain does not radiate. Associated signs and symptoms: Pertinent negatives: abdominal pain, shortness of breath. The chest pain is described as aching. Duration: The patient or guardian reports a single episode, that is still ongoing. Modifying factors: The symptoms are alleviated by nothing. the symptoms are aggravated by activity. The patient has not experienced similar symptoms in the past. Historical: - Allergies: 13:30 No Known Allergies; jl7 - Home Meds: 13:30 Tresiba FlexTouch U-100 100 unit/mL (3 mL) subcutaneous inpn [Active]; metoprolol jl7 succinate 200 mg oral Tb24 [Active]; losartan 100 mg oral tab [Active]; Jardiance 25 mg oral tab [Active]; rosuvastatin oral [Active]; Ozempic subcutaneous [Active]; tolterodine 4 mg oral cp24 [Active]; Detrol LA 4 mg Oral cp24 [Active]; sildenafil 25 mg oral tab 1 tab once daily [Active]; alprostadil 80 mcg/10 mL injection [Active]; Qsymia 15-92 mg oral CM24 1 cap once daily [Active]; - PMHx: 13:30 Diabetes - NIDDM; High Cholesterol; Hypertension; Prostate Cancer; jl7 - PSHx: 13:30 prostatectomy; right knee; jl7 - Immunization history:: Adult Immunizations up to date. - Social history:: Smoking status: Patient denies any tobacco usage or history of. ROS: 13:15 Constitutional: Negative for fever, chills, and weight loss. jmm 13:15 Cardiovascular: Positive for chest pain. 13:15 All other systems are negative. Exam: 13:15 Constitutional: This is a well developed, well nourished patient who is awake, alert, jm and in no acute distress. Head/Face: atraumatic. Eyes: EOMI, no conjunctival erythema appreciated ENT: Moist Mucus Membranes Neck: Trachea midline, Supple Chest/axilla: Normal chest wall appearance and motion. Cardiovascular: Regular rate and rhythm. No edema appreciated Respiratory: Normal respirations, no respiratory distress appreciated Abdomen/GI: Non distended Back: Normal ROM Skin: General appearance color normal MS/ Extremity: Moves all extremities, no obvious deformities appreciated, no edema noted to the lower extremities Neuro: Awake and alert Psych: Behavior is normal, Mood is normal, Patient is cooperative and pleasant 14:10 ECG was reviewed by the Attending Physician. [facility] Vital Signs: 13:27 BP 140 / 97; Pulse 107; Resp 19; Temp 97.7; Pulse Ox 100% on R/A; Weight 108.86 kg; jl7 Height 5 ft. 10 in. (177.80 cm); Pain 7/10; 13:58 BP 135 / 85; Pulse 102; Resp 18; Pulse Ox 99% ; ko1 14:20 BP 102 / 59; Pulse 91; Resp 24; Pulse Ox 99% ; ko1 15:34 BP 113 / 74; Pulse 102; Resp 18; Pulse Ox 97% ; ko1 19:49 BP 111 / 74; Pulse 93; Resp 18 S; Temp 97.9(O); Pulse Ox 98% on R/A; bb 13:27 Body Mass Index 34.44 (108.86 kg, 177.80 cm) jl7 MDM: 13:18 Patient medically screened. coby 15:52 The patient was given aspirin in the Emergency Department. Data reviewed: vital signs, [facility] nurses notes, lab test result(s), radiologic studies. Consideration of Admission/Observation Patient was admitted/placed on observation. Management of patient was discussed with the following: Hospitalist: Eddie Rodriguez NP. Counseling: I had a detailed discussion with the patient and/or guardian regarding: the historical points, exam findings, and any diagnostic results supporting the discharge/admit diagnosis. Medication response: morphine partially relieved the patient's pain. Response to treatment: the patient's symptoms have mildly improved after treatment. 11/14 13:15 Order name: Basic Metabolic Panel; Complete Time: 14:43 [facility] 11/14 13:15 Order name: CBC with Diff; Complete Time: 14:32 [facility] 11/14 13:15 Order name: LFT's; Complete Time: 14:43 [facility] 11/14 13:15 Order name: Magnesium; Complete Time: 14:43 [facility] 11/14 13:15 Order name: NT PRO-BNP; Complete Time: 14:43 [facility] 11/14 13:15 Order name: PT-INR; Complete Time: 15:11 [facility] 11/14 13:15 Order name: Troponin HS; Complete Time: 14:43 [facility] 11/14 13:15 Order name: XRAY Chest (1 view); Complete Time: 13:47 [facility] 11/14 13:28 Order name: SARS RAPID; Complete Time: 14:10 [facility] 11/14 15:57 Order name: Troponin High Sensitivity [facility] 11/14 15:57 Order name: Troponin High Sensitivity; Complete Time: 17:44 [facility] 11/14 15:57 Order name: Troponin High Sensitivity [facility] 11/14 17:34 Order name: Glucose, Ancillary Testing; Complete Time: 17:35 [facility] 11/14 17:47 Order name: Hemoglobin A1c; Complete Time: 17:49 [facility] 11/14 13:15 Order name: EKG; Complete Time: 13:16 [facility] 11/14 13:15 Order name: Cardiac monitoring; Complete Time: 13:32 [facility] 11/14 13:15 Order name: EKG - Nurse/Tech; Complete Time: 13:33 [facility] 11/14 13:15 Order name: IV Saline Lock; Complete Time: 14:14 [facility] 11/14 13:15 Order name: Labs collected and sent; Complete Time: 14:14 [facility] 11/14 13:15 Order name: O2 Per Protocol; Complete Time: 13:32 [facility] 11/14 14:43 Order name: CT Chest For PE Angio; Complete Time: 15:27 [facility] 11/14 14:44 Order name: CT Abd/Pelvis - IV Contrast Only; Complete Time: 15:41 [facility] 11/14 15:12 Order name: EKG; Complete Time: 15:13 [facility] 11/14 13:15 Order name: O2 Sat Monitoring; Complete Time: 13:32 [facility] 11/14 15:12 Order name: EKG - Nurse/Tech; Complete Time: 15:26 [facility] EC:10 Rate is 106 beats/min. Rhythm is regular. QRS [place] is Normal. WA interval is normal. jmm QRS interval is normal. QT interval is normal. No Q waves. T waves are Normal. No ST changes noted. Reviewed by me. Administered Medications: 14:02 Drug: Aspirin Chewable Tablet 324 mg Route: PO; ko1 15:01 Follow up: Response: No adverse reaction ko1 14:14 Drug: Zofran (Ondansetron) 4 mg Route: IVP; Site: right antecubital; ko1 15:02 Follow up: Response: No adverse reaction; Nausea is decreased ko1 14:17 Drug: morphine 4 mg Route: IVP; Infused Over: 4 mins; Site: right antecubital; ko1 15:01 Follow up: Response: No adverse reaction; Pain is decreased ko1 15:26 Drug: Zofran (Ondansetron) 4 mg Route: IVP; Site: right antecubital; ko1 20:08 Follow up: Response: No adverse reaction bb 15:28 Drug: morphine 4 mg Route: IVP; Infused Over: 4 mins; Site: right antecubital; ko1 20:08 Follow up: Response: No adverse reaction bb 15:34 Drug: Lovenox (enoxaparin) 1 mg/kg Route: Sub-Q; Site: right lower abdomen; ko1 20:09 Follow up: Response: No adverse reaction bb 15:57 Drug: GI Cocktail without - (Maalox Suspension 30 ml, Lidocaine Liquid 2 % 15 ko1 ml) Route: PO; 20:08 Follow up: Response: No adverse reaction bb 20:08 Follow up: Response: No adverse reaction bb Disposition Summary: 11/14/22 15:54 Hospitalization Ordered Hospitalization Status: Observation [facility] Provider: Lisbeth Haque Location: Telemetry/MedSurg (observation) [facility] Condition: Stable [facility] Problem: new jmm Symptoms: have improved jm Bed/Room Type: Standard [facility] Room Assignment: 207(11/14/22 17:41) eb Diagnosis - Chest pain, unspecified jm Forms: - Medication Reconciliation Form m - SBAR form [facility] Signatures: Dispatcher [employer] EDRoberto Hancock MD MD cha Mickail, Joel, PA PA jmm Leal, Jahala, RN RN jl7 Catarina Gaines Kathy, RN RN ko1 Martina Steiner RN bb Corrections: (The following items were deleted from the chart) 17:41 15:54 shonna soni
--- NOTE | 2022-11-14 15:54 | ER ---
Nurse's Notes [facility] Name: Reji Wallace Age: 62 yrs Sex: Male : 1960 Arrival Date: 11/14/2022 Time: 13:04 Bed 8 Private MD: Diagnosis: Chest pain, unspecified Presentation: 11/14 13:26 Chief complaint: Chief complaint: Patient states: Midsternal CP, non radiating, feels jl7 like pressure, started at 1245. 13:27 Coronavirus screen: Vaccine status: Patient reports receiving the 2nd dose of the covid jl7 vaccine. At this time, the client does not indicate any symptoms associated with coronavirus-19. Ebola Screen: No symptoms or risks identified at this time. Initial Sepsis Screen: Does the patient meet any 2 criteria? No. Patient's initial sepsis screen is negative. Does the patient have a suspected source of infection? No. Patient's initial sepsis screen is negative. Risk Assessment: Do you want to hurt yourself or someone else? Patient reports no desire to harm self or others. Onset of symptoms was November 14, 2022 at 12:45. 13:27 Method Of Arrival: Wheelchair jl7 13:27 Acuity: ARIA 2 jl7 Triage Assessment: 13:57 General: Appears distressed, uncomfortable, Behavior is cooperative, appropriate for ko1 age, anxious. Pain: Complains of pain in mid-sternal area. Cardiovascular: Reports chest pain. Historical: - Allergies: 13:30 No Known Allergies; jl7 - Home Meds: 13:30 Tresiba FlexTouch U-100 100 unit/mL (3 mL) subcutaneous inpn [Active]; metoprolol jl7 succinate 200 mg oral Tb24 [Active]; losartan 100 mg oral tab [Active]; Jardiance 25 mg oral tab [Active]; rosuvastatin oral [Active]; Ozempic subcutaneous [Active]; tolterodine 4 mg oral cp24 [Active]; Detrol LA 4 mg Oral cp24 [Active]; sildenafil 25 mg oral tab 1 tab once daily [Active]; alprostadil 80 mcg/10 mL injection [Active]; Qsymia 15-92 mg oral CM24 1 cap once daily [Active]; - PMHx: 13:30 Diabetes - NIDDM; High Cholesterol; Hypertension; Prostate Cancer; jl7 - PSHx: 13:30 prostatectomy; right knee; jl7 - Immunization history:: Adult Immunizations up to date. - Social history:: Smoking status: Patient denies any tobacco usage or history of. Screenin:58 [facility] ED Fall Risk Assessment (Adult) History of falling in the last 3 months, ko1 including since admission No falls in past 3 months (0 pts) Confusion or Disorientation No (0 pts) Intoxicated or Sedated No (0 pts) Impaired Gait No (0 pts) Mobility Assist Device Used No (0 pt) Altered Elimination No (0 pt) Score/Fall Risk Level 0 - 2 = Low Risk Oriented to surroundings, Maintained a safe environment, Educated pt \T\ family on fall prevention, incl call for assistance when getting out of bed, Assessed \T\ reinforced patient's understanding of fall precautions, Provided non-skid footwear, Hourly rounding (assess needs \T\ fall precautionary measures) done, Used ambulatory aids as needed (educated on \T\ assisted with), Used gait belt as appropriate. Abuse screen: Denies threats or abuse. Denies injuries from another. Nutritional screening: No deficits noted. Tuberculosis screening: No symptoms or risk factors identified. Assessment: 13:58 General: Appears distressed, uncomfortable, Behavior is appropriate for age. Pain: Pain ko1 does not radiate. Pain began suddenly. Neuro: No deficits noted. Cardiovascular: Reports chest pain. Respiratory: No deficits noted. GI: No deficits noted. : No deficits noted. EENT: No deficits noted. Derm: No deficits noted. Musculoskeletal: No deficits noted. 19:49 General: Appears in no apparent distress. Behavior is calm, cooperative. Neuro: Level bb of Consciousness is awake, alert, obeys commands, Oriented to person, place, time, situation. Cardiovascular: Reports since he is feeling better. Respiratory: Respiratory effort is even, labored. GI: No signs and/or symptoms were reported involving the gastrointestinal system. Derm: Skin is dry, Skin is normal, Skin temperature is warm. Derm: Musculoskeletal: Circulation, motion, and sensation intact. 20:06 Reassessment: report called Chajulio for room 207. bb Vital Signs: 13:27 BP 140 / 97; Pulse 107; Resp 19; Temp 97.7; Pulse Ox 100% on R/A; Weight 108.86 kg; jl7 Height 5 ft. 10 in. (177.80 cm); Pain 7/10; 13:58 BP 135 / 85; Pulse 102; Resp 18; Pulse Ox 99% ; ko1 14:20 BP 102 / 59; Pulse 91; Resp 24; Pulse Ox 99% ; ko1 15:34 BP 113 / 74; Pulse 102; Resp 18; Pulse Ox 97% ; ko1 19:49 BP 111 / 74; Pulse 93; Resp 18 S; Temp 97.9(O); Pulse Ox 98% on R/A; bb 13:27 Body Mass Index 34.44 (108.86 kg, 177.80 cm) jl7 ED Course: 13:04 Patient arrived in ED. rg4 13:06 Slick Castellanos PA is PHCP. jmm 13:06 Roberto So MD is Attending Physician. jmm 13:30 Triage completed. jl7 13:31 Phuong Garcia, RN is Primary Nurse. ko1 13:37 XRAY Chest (1 view) In Process Unspecified. EDMS 13:58 Patient has correct armband on for positive identification. Bed in low position. Call ko1 light in reach. Side rails up X 1. Client placed on continuous cardiac and pulse oximetry monitoring. NIBP monitoring applied. monitor tech on. 13:58 Patient maintains SpO2 saturation greater than 95% on room air. ko1 14:08 Missed attempt(s): 20 gauge in right forearm. 22 gauge. rs5 14:08 Missed attempt(s): 20 gauge in left forearm. rs5 14:15 Basic Metabolic Panel Sent. ko1 14:15 CBC with Diff Sent. ko1 14:15 LFT's Sent. ko1 14:15 Magnesium Sent. ko1 14:15 NT PRO-BNP Sent. ko1 14:15 PT-INR Sent. ko1 14:15 Troponin HS Sent. ko1 14:17 Initial lab(s) drawn, by ne, sent to lab. Inserted saline lock: 20 gauge in right ko1 antecubital area, using aseptic technique. Blood collected. 15:09 CT Chest For PE Angio In Process Unspecified. EDMS 15:29 CT Abd/Pelvis - IV Contrast Only In Process Unspecified. EDMS 15:54 Lisbeth Haque MD is Hospitalizing Provider. jmm 19:49 Patient has correct armband on for positive identification. Bed in low position. Call bb light in reach. Side rails up X 1. Adult w/ patient. 19:49 IV is intact. bb 20:06 No provider procedures requiring assistance completed. Patient admitted, IV remains in bb place. Administered Medications: 14:02 Drug: Aspirin Chewable Tablet 324 mg Route: PO; ko1 15:01 Follow up: Response: No adverse reaction ko1 14:14 Drug: Zofran (Ondansetron) 4 mg Route: IVP; Site: right antecubital; ko1 15:02 Follow up: Response: No adverse reaction; Nausea is decreased ko1 14:17 Drug: morphine 4 mg Route: IVP; Infused Over: 4 mins; Site: right antecubital; ko1 15:01 Follow up: Response: No adverse reaction; Pain is decreased ko1 15:26 Drug: Zofran (Ondansetron) 4 mg Route: IVP; Site: right antecubital; ko1 20:08 Follow up: Response: No adverse reaction bb 15:28 Drug: morphine 4 mg Route: IVP; Infused Over: 4 mins; Site: right antecubital; ko1 20:08 Follow up: Response: No adverse reaction bb 15:34 Drug: Lovenox (enoxaparin) 1 mg/kg Route: Sub-Q; Site: right lower abdomen; ko1 20:09 Follow up: Response: No adverse reaction bb 15:57 Drug: GI Cocktail without - (Maalox Suspension 30 ml, Lidocaine Liquid 2 % 15 ko1 ml) Route: PO; 20:08 Follow up: Response: No adverse reaction bb 20:08 Follow up: Response: No adverse reaction bb Medication: 20:07 VIS not applicable for this client. bb Outcome: 15:54 Decision to Hospitalize by Provider. [facility] 20:07 Admitted to Tele accompanied by tech, via wheelchair, room 207, with chart. bb 20:07 Condition: stable 20:07 Instructed on the need for admit. 20:33 Patient left the ED. bb Signatures: Dispatcher [employer] EDMS Slick Castellanos PA PA jmm Ballard, Brenda RN RN bb Reyna Valentine rg4 Aurea Canales RN RN jl7 Phuong Garcia RN RN ko1 Coleman Mendoza rs5 Corrections: (The following items were deleted from the chart) 13:26 Chief complaint: brittni7 jl7
[2022-11-14] MEDS ORDERED: MAGNES/ALUMIN/SIMET 30ML UCUP ONE (15:56)
[2022-11-14] MEDS ORDERED: LIDOCAINE VISCOUS 2% SOLN 15 ML UDC ONE (15:57)
[2022-11-14] MEDS ORDERED: ACETAMINOPHEN 500 MG TAB PO PRN (16:17)
[2022-11-14] MEDS ORDERED: ONDANSETRON 4 MG/2 ML VIAL IV PRN (16:17)
[2022-11-14] MEDS: INSULIN -REGULAR HUMAN 50 UNIT/0.5 ML ML SQ SCH ×2 (16:30→21:00)
--- NOTE | 2022-11-14 17:00 | P.HP ---
Certification for Inpatient Patient admitted to: Inpatient With expected LOS: >2 Midnights Patient will require the following post-hospital care: None Practitioner: I am a practitioner with admitting privileges, knowledge of patient current condition, hospital course, and medical plan of care. Services: Services provided to patient in accordance with Admission requirements found in Title 42 Section 412.3 of the Code of Federal Regulations Patient History Date of Service: 11/14/22 Primary Care Provider: Nadeen Reason for admission: Chest pain History of Present Illness: This a 62-year-old male with prior medical history of diabetes type 2, hyperlipidemia, hypertension and prostate cancer. Patient presents to the emergency room with complaints of chest pain. Patient states his symptoms started today around 11 AM today. He reports non-radiating pain in the substernal area of the chest with a pain level of 8 out of 10. He describes the pain as being crushing and it feels like something was sitting on my chest. He reported associated symptoms of shortness of breath, nausea and chills. She states that his pain occurred at rest and was alleviated with nothing. Patient denies any prior episode of chest pain. Patient was evaluated at the bedside. He denies any chest pain, and stated he feels better. He states his last stress test was about 3 years ago, his orthopedic nurse is Dr. Smith. His initial troponin was negative, will trend 2 more. All imaging negative for any acute findings. EKG showed sinus tach with a heart rate of 106, otherwise normal EKG. Patient will be admitted under the care of Dr. Haque. Cardiology will be consulted for further management and recommendations. Allergies No Known Drug Allergies Allergy (Verified 03/12/21 08:45) Unknown Home Medications: Losartan Potassium [Cozaar] 100 mg PO DAILY 04/22/20 Metoprolol Succinate [Toprol Xl] 200 mg PO DAILY 04/22/20 Rosuvastatin [Crestor*] 10 mg PO DAILY tab 04/24/20 Dulaglutide [Trulicity] 3 mg SQ EVERY 7TH DAY 03/12/21 Empagliflozin/Metformin HCl [Synjardy Xr 12.5-1,000 mg Tab] 2 tab PO DAILY 02/06/22 Phentermine/Topiramate [Qsymia 3.75 mg-23 mg Capsule] 23 mg PO DAILY 02/06/22 Sildenafil Citrate 20 mg PO DAILY 02/06/22 Tolterodine Tartrate [Detrol LA*] 4 mg PO DAILY 02/06/22 - Past Medical/Surgical History Diabetic: Yes -: IDDM -: HTN -: hyperlipidemia -: history of protate cancer -: Prostatectomy Psychosocial/ Personal History: 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 - Family History Father -: Cancer Notes: prostate - Social History Smoking Status: Never smoker Alcohol use: Yes CD- Drugs: No Caffeine use: Yes Review of Systems 10-point ROS is otherwise unremarkable General: Chills Respiratory: Shortness of Breath Cardiovascular: Chest Pain Gastrointestinal: Nausea Physical Examination - Vital Signs Temperature: 97.7 F Blood Pressure: 102/86 Pulse: 97 Respirations: 18 Pulse Ox (%): 97 - Physical Exam General: Alert, In no apparent distress, Oriented x3 HEENT: Atraumatic, Normocephalic, PERRLA Neck: Supple, 2+ carotid pulse no bruit Respiratory: Clear to auscultation bilaterally, Normal air movement Cardiovascular: No edema, Normal pulses, Regular rate/rhythm Capillary refill: <2 Seconds Gastrointestinal: Normal bowel sounds Musculoskeletal: No clubbing, No swelling Integumentary: No rashes, No breakdown Neurological: Normal speech, Normal strength at 5/5 x4 extr, Normal tone Lymphatics: No axilla or inguinal lymphadenopathy - Studies Laboratory Data (last 24 hrs) 11/14/22 14:10: PT 14.1 H, INR 1.28 11/14/22 14:10: WBC 8.30, Hgb 14.3, Hct 43.0, Plt Count 395 11/14/22 14:10: Sodium 141, Potassium 3.5, BUN 16, Creatinine 1.39 H, Glucose 247 H, Magnesium 1.9, Total Bilirubin 0.3, AST 16, ALT 28, Alkaline Phosphatase 125 H Assessment and Plan - Plan Assessment Unstable angina Hypertension Diabetes type 2 with hyperglycemia Hyperlipidemia Prostate cancer Plan Unstable angina Stable, telemetry monitoring Continue aspirin and statin Cardiology consulted, recommendations appreciated Serial troponin CXR- No acute abnormalities displayed CT angiogram- Negative for a pulmonary embolism ECHO 04/22/20 NORMAL LEFT VENTRICULAR EJECTION FRACTION 55-60%. NORMAL WALL MOTION. NORMAL DIASTOLIC FUNCTION. Last stress test 3 years ago per patient Hypertension Resume home meds when appropriate Diabetes type 2 with hyperglycemia Blood sugars before meals and at bedtime with sliding scale insulin coverage Last A1c 8.8%, will recheck Hyperlipidemia Continue statin Lipid panel ordered Prostate cancer Resume home meds when appropriate Continue supportive care PPX- Lovenox Code Status: Full code Discharge Plan: Home Plan to discharge in: 48 Hours - Advance Directives Does patient have a Living Will: No Does patient have a Durable POA for Healthcare: No - Code Status/Comfort Care Code Status Assessed: Yes (Full code) Critical Care: No Time Spent Managing Pts Care (In Minutes): 50
[2022-11-14 20:43] VITALS: O2SAT 98
[2022-11-14] MEDS ORDERED: ROSUVASTATIN 10 MG TAB PO SCH (21:00)
[2022-11-14 21:07] VITALS: BMI 34.4
[2022-11-15 03:04] LABS: Absolute Lymphocytes (CBC) 2.5 K/uL (0.7-4.9); Hematocrit 40.6 % (39.6-49.0); Lymphocytes % 29.9 % (15.3-44.8); MCV 90.6 fL (80-100); MPV 7.6 fL (7.6-11.3); RBC Red Blood Cell Count 4.49 M/uL (4.33-5.43)
[2022-11-15 03:23] LABS: Magnesium 1.9 mg/dL (1.6-2.4); Phosphorus 2.7 mg/dL (2.5-4.9); Potassium 3.6 mmol/L (3.5-5.1)
[2022-11-15] MEDS: INSULIN -REGULAR HUMAN 50 UNIT/0.5 ML ML SQ SCH ×2 (07:30→11:30)
[2022-11-15] MEDS ORDERED: ASPIRIN EC 81 MG TAB PO SCH (09:00)
[2022-11-15] MEDS ORDERED: ENOXAPARIN 40 MG/0.4 ML SQ SCH (09:00)
[2022-11-15] MEDS ORDERED: POTASSIUM CL SA 10 MEQ TAB PO ONE (09:00)
[2022-11-15 12:00] VITALS: BP 105/67; TEMP 97.2
--- NOTE | 2022-11-16 14:24 | EKG ---
Test Date: 2022-11-14 Test Time: 15:26:09 Head Of Physics: MARIA ISABEL MEASUREMENT RESULTS: Intervals: Rate: 99 NM: 168 QRSD: 86 QT: 330 QTc: 423 [place]: P: 64 NM: 168 QRS: 51 T: 53 INTERPRETIVE STATEMENTS: Normal sinus rhythm Normal ECG Compared to ECG 11/14/2022 13:20:00 Sinus tachycardia no longer present Electronically Signed On 11-16-22 14:23:12 CLINICAL DIETICIAN by Joe Smith
--- NOTE | 2022-11-16 14:24 | EKG ---
Test Date: 2022-11-14 Test Time: 13:20:00 [place]ger: LUIS MEASUREMENT RESULTS: Intervals: Rate: 106 KS: 158 QRSD: 92 QT: 332 QTc: 441 [place]: P: -6 KS: 158 QRS: 7 T: 7 INTERPRETIVE STATEMENTS: Sinus tachycardia Otherwise normal ECG Compared to ECG 02/06/2022 00:51:53 Sinus rhythm no longer present Electronically Signed On 11-16-22 14:23:13 STATION USHER by Joe Smith
== END 2022-11-15 13:00 | disposition home or self-care (01) | DRG 311 ==
LOC: ER 13:01 → ERHOLD 15:54 → 2ND 20:06
PROVIDERS: ADMIT Hospitalist; ATTEND Hospitalist
DX: I20.0 Unstable angina (principal); I10 Essential (primary) hypertension; E78.5 Hyperlipidemia, unspecified; E11.65 Type 2 diabetes mellitus with hyperglycemia; Z79.4 Long term (current) use of insulin; Z85.46 Personal history of malignant neoplasm of prostate; Z90.79 Acquired absence of other genital organ(s); Z79.899 Other long term (current) drug therapy; Z20.822 Contact with and (suspected) exposure to COVID-19
CPT/HCPCS: 36415; 71045; 71275; 74177; 80048; 80061; 80076; 82947; 83036; 83735; 83880; 84100; 84484; 85025; 85610; 87811; 93005; 96372; 96374; 96375; 99285; J1650; J2405; Q9967

== ENCOUNTER 2023-01-07 07:58 | Emergency (ER) | payer OTHER ==
--- OUTSIDE RECORDS SUMMARY | 2023-01-07 08:00 | XMS REPORT | Clinical Summary ---
:1960 Author Organization [facility] Center Address [address] [place] [address] Care Team Providers Name Role Phone Jose [...] (severe) obesity due to excess calories 001 Surgical History Surgery Date Site/Laterality Comments HEMORRHOID SURGERY 11/02/2004 - 11/01/2005 CARDIAC CATHETERIZATION 11/02/2004 - 11/01/2005 KNEE SURGERY 11/02/2000 - 11/01/2001 Medical History Medical History Date Comments Hypertension 2010 Hyperlipidemia 2010 Diabetes mellitus 2009 Currently managed wi insulin Herpes zoster 2018 Morbid (severe) obesity due to excess 2001 Gigi yousif currently weighs around 277 calories pounds. Patient stat es that his weight began to incr ease after he was 41 years of age Family History Medical History Relation Name Comments -Other cancer Father O Lui Wallace Esophageal cance r Brain cancer Father O Lui Wallace Lung cancer Father O Lui Wallace Prostate cancer Father O Lui Wallace [...] Vaccination (#1) 1960 Results Not on fileafter 01/07/2022 Insurance Payer Benefit Plan / Subscriber ID Effective Dates Phone Addre ss Type Group [employer] MANAGED A[employer] O [id number] 2011-Presen PO MIRZA X [id number] [place] [address] Care Teams Fur Plucker Relationship Specialty Start Date End Date Jose Enrique Laughlin MD PCP - General Urology 01/04/[address] [place] [id number]
--- OUTSIDE RECORDS SUMMARY | 2023-01-07 08:04 | XMS REPORT | Continuity of Care Document ---
:1960 Author Organization [facility] t Address [address] [place] [address] [place] [id number] Care Team Providers Name Role Phone Celeste Laughlin MD Primary Care Physician Anshu Herrera Attending Clinician Unavailable AYAN WELSH Attending Clinician Unavailable SYSTEM, PROVIDER NOT IN Attending Clinician Unavailable She Attending Clinician Unavailable Dian Green Attending Clinician CELESTE LAUGHLIN Attending Clinician Unavailable David Velázquez MD Attending Clinician Lab, [facility] Pob I Attending Clinician Unavailable Sherry Lafleur Attending Clinician Anshu Herrera Admitting Clinician Unavailable AYAN WELSH Admitting Clinician Unavailable She Admitting Clinician Unavailable Payers Payer Name Policy Type Policy Number Effective Date Expiration Date S ource AETNA (EPO) [id number] 2011 00:00:00 AETNA 53 [id number] 2011 [facility] 00:00:00 [facility] AETNA SELECT [id number] 2018 [place] ACCESS 00:00:00 Problems Condition Condition Condition Status Onset Resolution Last Treating Co mments Source Name Details Category Date Date Treatment Clinician Date Hypoglycem Hypoglycem Problem Active V illage ia ia 6-22 Family 00:00: Practic 00 e Morbid Morbid Problem Active [facility] obesity Obesity 4- Family 00:00: Practic 00 e Type 2 Type 2 Problem Active [facility] diabetes Diabetes 3-28 Family mellitus Mellitus 00:00: Practi c 00 e Urinary Urinary Problem Active [facility] incontinen Incontinen 3-28 Rob elliott ce [...] e Type 2 Type 2 Disease Active [facility] diabetes diabetes 4- ity of mellitus mellitus 00:00: [place] 00 MD [facility] Thrombocyt Thrombocyt Problem Active V illage osis osis 3-19 Family 00:00: Practic 00 e Essential Essential Problem Active Nataly mora thrombocyt Thrombocyt 3-19 Rob gutierrez evy ratliff 00:00: Practic 00 e Anemia Anemia Problem Active [facility] 3-19 Family 00:00: Practic 00 e Essential Essential Disease Active Uni vers hemorrhagi hemorrhagi 3-19 it y of c c 00:00: [place] thrombocyt thrombocyt 00 MD [facility] Anemia of Anemia of Disease Active Uni vers chronic chronic 2-18 ity of disease disease 00:00: [place] 00 MD [facility] Type 2 Type 2 Disease Active [facility] diabetes diabetes 2-18 ity of mellitus mellitus 00:00: [place] with with 00 diabetic diabetic Angel o chronic chronic n kidney kidney Cancer disease disease Center Coronary Coronary Disease Active Unive rs arterioscl arterioscl 2-18 it y of erosis erosis 00:00: [place] 00 MD [facility] Type 2 Type 2 Problem Active [facility] diabetes Diabetes 4-24 Family mellitus Mellitus 00:00: Practi c without without 00 e complicati Complicati on on Hyperlipid Hyperlipid Problem Active V illage emia emia 24 Family 00:00: Practic 00 e Obesity Obesity Problem Active [facility] -24 Family 00:00: Practic 00 e Essential Essential Problem Active Nataly mora hypertensi Hypertensi 02-23 Fa matt on on 00:00: Practic 00 e Primary Primary Problem Active [place] erectile Erectile 02-23 Family dysfunctio Dysfunctio 00:00: Pr actic n n e Malignant Malignant Problem Active Nataly mora tumor of Tumor of 02-23 Family prostate Prostate 00:00: Practi c 00 e Impotence Impotence Problem Active Nataly hinojosae 24 Family 00:00: Practic 00 e Clinical Clinical Problem Active [facility] finding Finding 02-23 Family 00:00: Practic 00 e Hypertensi Hypertensi Disease Active U nivers on on 02-23 ity of 00:00: [place] 00 MD [facility] Carcinoma Carcinoma Disease Active Uni vers of of 02-23 ity of prostate prostate 00:00: [place] 00 MD [facility] Morbid Morbid Disease Active Univers obesity obesity 02-23 ity of 00:00: [place] MD [facility] Herpes Herpes [...] Formattin ity of 00:00: g of this 00 note might be Alea noble n from the Cancer original. Center Currently managed with insulin Morbid Morbid Disease Active Univers (severe) (severe) 11-02 ity of obesity obesity 00:00: [place] due to due to excess excess [place] calories calories n Cancer Center S/P S/P Problem Common prostatect prostatect Sp smita jc jc [facility] [id number] Pain in Problem Comm on left thigh [facility] [id number] Pain in Problem Comm on [id number] right [facility] thigh [facility] [id number] Continuous Problem Co mmon leakage of [facility] urine [facility] Mixed Mixed Problem Common incontinen stress and Sp smita ce urge - [facility] urinary [facility] SI - Male Problem Common Stress stress [facility] incontinen incontinen - [facility] ce [facility] [id number] 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) [facility] [id number] Detrusor Problem Comm on instabilit [facility] y [facility] [id number] Erectile Problem Comm on dysfunctio Spirit n, - [facility] unspecifie [facility] erectile [facility] dysfunctio Medica l n type Center [id number] OAB Problem Common (overactiv Spirit e bladder) [facility] [id number] ED Problem Common (erectile Spirit dysfunctio - [facility] n) of [facility] [id number] BPH loc w Problem Com mon urin Spirit obs/LUTS [facility] [id number] Cancer of Problem Comm on prostate Spirit with - [facility] intermedia [facility] recurrence Medica l risk Center (stage T2b-c or Ashlie 7 or PSA 10-20) [id number] Febrile Problem Commo n illness, [facility] acute [facility] [id number] Hypogonadi Problem Com mon sm in male [facility] [id number] Hyperestro Problem Com mon genism in [facility] male [facility] Allergies, Adverse Reactions, Alerts Allergy Allergy Status Severity Reaction(s) Onset Inactive Treating Comm ents Source Name Type Date Date Clinician METFORMI Allergy Active [facility] N 05-30 00:00: 00 Metformi Allergy Active Village n to Family substanc Practic e e NO KNOWN Drug Active Univers ALLERGIE Class ity of [facility] NO KNOWN Allergy Active [facility] Family History Family Member Diagnosis Comments Start Date Stop Date Source Natural father Prostate cancer [facility] MD So Canearl r [place] Natural father -Other cancer [facility] [place] MD So Cance r [place] Natural father Brain cancer [facility] [place] Judah Cance r [place] Natural father Lung cancer [facility] [place] [facility] Social History Social Habit Start Date Stop Date Quantity Comments Source Exposure to Yes University of SARS-CoV-2 [place] [facility] (event) [facility] History of [facility] - Tobacco Use [facility] History SDOH [facility] Alcohol Frequency Medical Center History SDOH [facility] Alcohol Std Medical Cente r Drinks History SDOH [facility] Alcohol Binge Medical [address] Tobacco use and 2021-05-21 2021-05-[address] X[facility] kes exposure 00:00:00 00:00:00 Medical Center History SDOH 2021-05-21 2021-05-[address] [facility] Alcohol Comment 00:00:00 00:00:00 Medical C enter Alcohol intake 2021-02-07 2021-02-07 Current drinker Unive rsity of 00:00:00 00:00:00 of alcohol [place] MD [facility] Sex Assigned At [birth year] Universit y of 00:00:00 00:00:00 [place] MD [facility] Cancer Center Smoking Status Start Date Stop Date Source Unknown if ever smoked [facility] [place] y [facility] Never Smoker [facility] Medications Ordered Filled Start Stop Current Ordering Indication Dosage Frequency Signature Comments Components Source Medication Medication Date Date Medication? Clinician (SIG) Name Name Bradley Huerta 2021-11 No 1{ml} Testostero e Cypionate e Cypionate 1-02 ne 200 MG/ML 200 MG/ML 00:00: Cypionate 00 200 MG/ML Testosteron Testosteron No Testostero e Cypionate e Cypionate 06-02 ne 200 MG/ML 200 MG/ML 00:00: Cypionate 00 200 MG/ML Testosteron Testosteron No Testostero e Cypionate e Cypionate 06-02 ne 200 MG/ML 200 MG/ML 00:00: Cypionate 00 200 MG/ML Anastrozole Anastrozole 2022- No Anastrozol 1 MG 1 MG 06-02 e 1 MG 00:00: 00:00 00 :00 Anastrozole Anastrozole 3- No Anastrozol 1 MG 1 MG 06-02 [...] 00:00 00 :00 Ditropan XL Ditropan XL 1-0 2021- No 1{table QD Ditropan 5 MG 5 MG 07-24-21 t} XL 5 MG 00:00: 00:00 00 :00 Cipro 500 Cipro 500 2020-0 2021- No 1{table BID Cipro 500 MG [...] MG MG 00 :00 300-30 MG empaglifloz Yes Take by [facility] in-metformi 7-31 [facility]ukes n 14:01: daily with Medical (Synjardy) [address] 12.5-1,000 mg Tab losartan Yes 100mg QD Take [address] (COZAAR) 7-31 mg by Lukes 100 MG 14:01: mouth Medical tablet 34 daily. [place] metoprolol Yes 200mg QD Take [address] succinate 7-31 mg by Lukes (TOPROL-XL) 14:01: mouth Medic al 200 MG 24 34 daily. [place] hr tablet rosuvastati Yes 10mg QD Take [...] 200 with unit/mL (3 breakfast. mL) InPn empaglifloz Yes Take by [facility] in-metformi 7-31 mouth [facility]ukes n 14:01: daily with Medical (Synjardy) [address] 12.5-1,000 mg Tab dulaglutide Yes 3mg Inject [address] (Trulicity) 7-31 mg Lukes 3 mg/0.5 mL 14:01: subcutaneo Medical PnIj 34 usly every Center 7 days. insulin Yes Inject [facility] lispro 7-31 subcutaneo Lukes (HumaLOG) 14:01: usly 3 Medica l 100 unit/mL 34 (three) Cente r injection times daily before meals Sliding scale . losartan Yes 100mg QD Take 100 [facility] [...] Sliding scale . FreeStyle FreeStyle No FreeStyle [facility] Keyon 14 Keyon 14 6-22 Keyon 14 Fam janelle Day Sensor Day Sensor 00:00: Day Sensor Practic as directed as directed 00 as e directed FreeStyle FreeStyle No FreeStyle [facility] Keyon 14 Keyon 14 6-22 Keyon [...] 50 MG 00:00: eded} 00 traMADol traMADol 2020-0 No 1{table QD traMADol HCl 50 MG HCl 50 MG 6-01 t_as_ne HCl 50 MG 00:00: eded} traMADol traMADol 2020-0 No 1{table QD traMADol HCl 50 MG HCl 50 MG 6-01 t_as_ne HCl 50 MG 00:00: eded} traMADol traMADol 2020-0 No 1{table QD traMADol HCl 50 MG HCl 50 MG 6-01 t_as_ne HCl 50 MG 00:00: eded} 00 traMADol traMADol 2020-0 No 1{table QD traMADol HCl 50 MG HCl 50 MG 6-01 t_as_ne HCl 50 MG 00:00: eded} traMADol traMADol 2020-0 No 1{table QD traMADol HCl 50 MG HCl 50 MG 6-01 t_as_ne HCl 50 MG 00:00: eded} traMADol traMADol 2020-0 No 1{table QD traMADol HCl 50 MG HCl 50 MG 6-01 t_as_ne HCl 50 MG 00:00: eded} traMADol traMADol 2020-0 No 1{table QD traMADol HCl 50 MG HCl 50 MG 6-01 t_as_ne HCl 50 MG 00:00: eded} 00 traMADol traMADol 2020-0 No 1{table QD traMADol HCl 50 MG HCl 50 MG 6-01 t_as_ne HCl 50 MG 00:00: eded} 00 traMADol traMADol 2020-0 No 1{table QD traMADol HCl 50 MG HCl 50 MG 6-01 t_as_ne HCl 50 MG 00:00: eded} 00 traMADol traMADol 2020-0 No 1{table QD traMADol HCl 50 MG HCl 50 MG 6-01 t_as_ne HCl 50 MG 00:00: eded} 00 diazePAM Yes Adenocarcin 10mg Take 1 Univers (Valium) 10 4-06 dali of tablet (10 ity of mg tablet 00:00: prostate mg) by [place] 00 mouth once MD as needed Anderso for n sedation Cancer for up to Center 1 dose. diazePAM Yes Adenocarcin 10mg Take 1 Univers (Valium) 10 4-06 dali of tablet (10 ity of mg tablet 00:00: prostate mg[place] mouth once as needed Alea ruelas sedation Cancer for up to Center 1 dose. aspirin 81 Yes 1{tbl} Take 1 Uni vers mg EC 4-01 tablet by ity of tablet 08:27: mouth [place] 51 daily. MD Alea davis [facility] aspirin 81 Yes 1{tbl} Take 1 Uni vers mg EC 4-01 tablet by ity of tablet 08:27: mouth [place] 51 daily. MD Cosby [facility] empaglifloz Yes 2{tbl} Take 2 Un jaky in-metformi 4-01 tablets by it y of n (Synjardy 08:27: mouth [place] XR) 08 daily. 12.5-1,000 [facility] empag[facility] Yes 2{tbl} Take 2 Un jaky in-metformi 4-01 tablets by it y of n (Synjardy 08:27: mouth [place] XR) 08 daily. 12.5-1,000 [facility] metoprolol Yes 1{tbl} Take 1 Uni vers succinate 3-17 tablet by ity o f (TOPROL XL) 00:00: mouth [place] 200 mg 24 00 daily. hr tablet [facility] metoprolol Yes 1{tbl} Take 1 Uni vers succinate 3-17 tablet by ity o f (TOPROL XL) 00:00: mouth [place] 200 mg 24 00 daily. MD ardon tablet Alea [facility] rosuvastati Yes 1{tbl} Take 1 Un jaky n (CRESTOR) 3-03 tablet by ity of 10 mg 00:00: mouth [place] tablet 00 daily. MD Alea davis [facility] Tresiba Yes 3mL Inject 3 Univer s FlexTouch 3-03 mL under ity of U-200 200 00:00: the skin [place] unit/mL (3 00 as needed. MD Tinsley) insulin Anderso pen [facility] rosuvastati Yes 1{tbl} Take 1 Un jaky n (CRESTOR) 3-03 tablet by ity of 10 mg 00:00: mouth [place] tablet 00 daily. MD Cosby [facility] Tresiba 0 Yes 3mL Inject 3 Univer s FlexTouch 3-03 mL under ity of U-200 200 00:00: the [place] unit/mL (3 00 as needed. MD Tinsley) insulin [facility] Gentamicin Gentamicin 2020-0 No 80mg C ommon 80mg 80mg 2 Spirit 00:00: - [facility] 00 [facility] Gentamicin Gentamicin 2020-0 No 80mg C ommon 80mg 80mg 2 Spirit 00:00: - [facility] Gentamicin Gentamicin 2020-0 No 80mg C ommon 80mg 80mg 2 Spirit 00:00: - [facility] Gentamicin Gentamicin 2020-0 No 80mg C ommon 80mg 80mg 2 Spirit 00:00: - [facility] Trulicity 0 Yes 3mg Inject 3 Univ ers 1.5 mg/0.5 1-29 mg under ity o f mL 00:00: the skin [place] injection 00 once a MD week. [facility] Trulicity 0 Yes 3mg Inject 3 Univ ers 1.5 mg/0.5 1-29 mg under ity o f mL 00:00: the skin [place] injection 00 [facility] a [facility] 5 MG Valium 5 MG 2020-0 [...] 00 Valium 5 MG Valium 5 MG No 1{table Valium 5 1-06 t} MG 00:00: 00 Valium 5 MG Valium 5 MG No 1{table Valium 5 1-06 t} MG 00:00: 00 Valium 5 MG Valium 5 MG No 1{table Valium 5 1-06 t} MG 00:00: 00 Valium 5 MG Valium 5 MG No 1{table Valium 5 1-06 t} MG 00:00: 00 Valium 5 MG Valium 5 MG No 1{table Valium 5 1-06 t} MG 00:00: 00 Valium 5 MG Valium 5 MG No 1{table Valium 5 1-06 t} MG 00:00: 00 Valium 5 MG Valium 5 MG No 1{table Valium 5 1-06 t} MG 00:00: 00 tamsulosin 2019-11 Yes 1{capsu Take 1 Un jaky (FLOMAX) 1-26 le} capsule by ity o f 0.4 mg 24 00:00: mouth [place] hr capsule 00 daily. MD Cosby [facility] tamsulosin 2019-11 Yes 1{capsu Take 1 Un jaky (FLOMAX) 1-26 le} capsule by ity o f 0.4 mg 24 00:00: mouth [place] hr capsule 00 daily. MD Alea davis [facility] sildenafil 2019-11 Yes 1{tbl} Take 1 Uni vers (VIAGRA) 1-18 tablet by ity of 100 MG 00:00: mouth as [place] tablet 00 needed. MD Alea davis [facility] sildenafil 2019-11 Yes 1{tbl} Take 1 Uni vers (VIAGRA) 1-18 tablet by ity of 100 MG 00:00: mouth as [place] tablet 00 needed. MD Alea daivs [facility] losartan 2018-11 Yes 1{tbl} Take 1 Unive rs (COZAAR) 2-16 tablet by ity of 100 mg 00:00: mouth [place] tablet 00 daily. MD Alea davis [facility] losartan 2018-11 Yes 1{tbl} Take 1 Unive rs (COZAAR) 2-16 tablet by ity of 100 mg 00:00: mouth [place] tablet 00 daily. MD [facility] anastrozole anastrozole No anastrozol [place] 1 mg [...] e gauge x gauge x gauge x 3/16" as 316" as 316" as directed directed directed BD Veo BD Veo No BD Veo [place] Insulin Insulin Insulin Family Syringe Syringe Syringe Practi c Ultra-Fine Ultra-Fine Ultra-Fine e 0.3 mL 31 0.3 mL 31 0.3 mL 31 gauge x gauge x gauge x 64" " " Comfort EZ Comfort EZ No 2needle Q1D Comfort EZ [place] Pen Raymond Pen Raymond (s) Pen F amily 32 gauge x 32 gauge x Raymond 32 Practic 1/4" Take 2 1/4" Take 2 gauge x e needles needles [...] everyday everyday everyday metoprolol metoprolol No metoprolol [facility] succinate succinate succinate Family ER 200 [...] 90 days. for 90 days. Qsymia Qsymia No Elkeymia [facility] 11.25 mg-69 11.25 mg-69 11.25 Family [...] Qsymia 15 No 1capsul Q1D Qsymia 15 [facility] mg-92 mg mg-92 mg e(s) mg-92 mg Fam janelle capsule, capsule, capsule, Pra ctic extended extended extended e release release release Take 1 Take 1 Take 1 capsule capsule capsule every day every day every day by oral by oral by oral route for route for route for 90 days. 90 days. 90 days. rosuvastati rosuvastati No rosuvastat [facility] n 10 mg n 10 mg in 10 mg Famil y tablet Take tablet Take tablet Practic 1 tablet 1 tablet Take 1 e every day every day tablet by oral by oral every day route as route as by oral directed. directed. route as directed. sildenafil sildenafil No sildenafil [facility] 100 mg 100 mg 100 mg [...] intramuscu lar oil tolterodine tolterodine No tolterodin [facility] ER 4 mg ER 4 mg e [...] TDD 130 increase as directed: TDD 130 anastrozole anastrozole No anastrozol [place] 1 mg [...] BD Veo BD Veo No BD Veo [facility] Insulin Insulin Insulin Family Syringe Syringe Syringe Practi c Ultra-Fine Ultra-Fine Ultra-Fine e 0.3 mL 31 0.3 mL 31 0.3 mL 31 gauge x gauge x gauge x " " " clotrimazol clotrimazol No clotrimazo [facility] e-betametha e-betametha le-betamet Family sone 1 sone 1 hasone 1 Practic %-0.05 % %-0.05 % %-0.05 % e topical topical topical cream cream cream Comfort EZ Comfort EZ No 2needle Q1D Comfort EZ [place] Pen Raymond Pen Raymond (s) Pen F amily 32 gauge x 32 gauge x Raymond 32 Practic 4" Take 2 4" Take 2 gauge x e needles needles /4" Take every day every day 2 needles by miscell. by miscell. every day route as route as by directed. directed. miscell. route as directed. diclofenac diclofenac No diclofenac [facility] sodium 75 sodium 75 sodium 75 Family mg mg mg Practic tablet,jordyn tablet,jordyn tablet,del e yed release yed release ayed release famotidine famotidine No famotidine [facility] 20 mg 20 mg 20 mg Family tablet tablet tablet Practic e Humalog Humalog No Humalog Villag e KwikPen [...] tablet tablet tablet e everyday everyday everyday methocarbam methocarbam No methocarba [facility] ol 500 mg ol 500 mg mol 500 mg Family tablet tablet tablet Practic e metoprolol metoprolol No metoprolol [facility] succinate succinate succinate Family ER 200 mg ER 200 mg ER 200 mg Practic tablet,exte tablet,exte tablet,ext e nded nded ended release 24 release 24 release 24 hr 1 tablet hr 1 tablet hr 1 everyday everyday tablet everyday Mounjaro Mounjaro No 2.5mg Q1W Mounjaro Vi llage 2.5 mg/0.5 2.5 mg/0.5 2.5 mg/0.5 Family mL mL mL Practic subcutaneou subcutaneou subcutaneo e s pen s pen us pen injector injector injector Inject 2.5 Inject 2.5 Inject 2.5 mg every mg every mg every week by week by week by subcutaneou subcutaneou subcutaneo s route for s route for us route 30 days. 30 days. for 30 days. Mounjaro 5 Mounjaro 5 No 5mg Q1W Mounjaro 5 Village mg/0.5 mL mg/0.5 mL mg/0.5 mL Family subcutaneou subcutaneou subcutaneo Practic s pen s pen us pen e injector injector injector Inject 5 mg Inject 5 mg Inject 5 every week every week mg every by by week by subcutaneou subcutaneou subcutaneo s route for s route for us route 30 days. 30 days. for 30 days. Mounjaro Mounjaro No 7.5mg Q1W Mounjaro Vi llage 7.5 mg/0.5 7.5 mg/0.5 7.5 mg/0.5 Family mL mL mL Practic subcutaneou subcutaneou subcutaneo e s pen s pen us pen injector injector injector Inject 7.5 Inject 7.5 Inject 7.5 mg every mg every mg every week by week by week by subcutaneou subcutaneou subcutaneo s route for s route for us route 30 days. 30 days. for 30 days. ondansetron ondansetron No ondansetro [facility] 8 mg 8 mg n 8 mg Family disintegrat disintegrat disintegra Practic ing tablet ing tablet ting e tablet Ozempic 2 Ozempic 2 No Ozempic 2 Village mg/dose (8 mg/dose (8 [...] 90 days. for 90 days. Qsymia Qsymia No 1capsul Q1D Qsymia Vill[place] e 11.25 mg-69 11.25 mg-69 e(s) 11.25 Family mg capsule, mg capsule, mg-69 mg Practic extended extended capsule, e release release extended Take 1 Take 1 release capsule capsule Take 1 every day every day capsule by oral by oral every day route for route for by oral 30 days. 30 days. route for 30 days. Qsymia 15 Qsymia 15 No 1capsul Q1D Qsymia 15 [facility] mg-92 mg mg-92 mg e(s) mg-92 mg Fam janelle capsule, capsule, capsule, Pra ctic extended extended extended e release release release Take 1 Take 1 Take 1 capsule capsule capsule every day every day every day by oral by oral by oral route for route for route for 90 days. 90 days. 90 days. rosuvastati rosuvastati No rosuvastat [facility] n 10 mg n 10 mg in 10 mg Famil y tablet Take tablet Take tablet Practic 1 tablet 1 tablet Take 1 e every day every day tablet by oral by oral every day route as route as by oral directed. directed. route as directed. sildenafil sildenafil sildenafil [facility] 100 mg 100 mg 100 mg Family tablet TAKE tablet TAKE tablet Practic ONE (1) ONE (1) TAKE ONE e TABLET(S) TABLET(S) (1) BY MOUTH BY MOUTH TABLET(S) ONCE A DAY ONCE A DAY BY MOUTH NEEDED. NEEDED. ONCE A DAY NEEDED. testosteron testosteron No testostero [facility] e cypionate e cypionate ne F amily 200 mg/mL 200 mg/mL cypionate Practic intramuscul intramuscul 200 mg/mL e ar oil ar oil intramuscu lar oil tolterodine tolterodine No tolterodin [facility] ER 4 mg ER 4 mg e ER 4 mg Fami ly capsule,ext capsule,ext capsule,ex Practic ended ended tended e release 24 release 24 release 24 hr hr hr Tresiba Tresiba No Tresiba [facility] e FlexTouch FlexTouch FlexTouch Family U-200 U-200 U-200 Practic insulin 200 insulin 200 insulin e unit/mL (3 unit/mL (3 200 mL) mL) unit/mL (3 subcutaneou subcutaneou mL) s pen Give s pen Give subcutaneo 80 units in 80 units in us pen AM and AM and Give 80 increase as increase as units in directed: directed: AM and TDD 100 TDD 100 increase as directed: TDD 100 Trulicity Trulicity No Trulicity Aspirin 81 Aspirin [...] 250 Decara 250 No Decara 250 MCG (08032 MCG (03435 MCG (84274 UT) UT) UT) Crestor Crestor No Crestor Losartan Losartan No 1{table QD Losartan Potassium Potassium t} Potassium 100 MG 100 MG 100 MG Decara 250 Decara 250 No Decara 250 MCG (27939 MCG (99784 MCG (00948 UT) UT) UT) Metformin Metformin No 1{table [...] 250 Decara 250 No Decara 250 MCG (56442 MCG (38840 MCG (55390 UT) UT) UT) Aspirin 81 Aspirin 81 No 1{table QD Aspirin 81 81 MG 81 MG t} 81 MG Trulicity Trulicity No Trulicity Losartan Losartan No 1{table QD Losartan Potassium Potassium t} Potassium 100 MG 100 MG 100 MG Metoprolol Metoprolol No 1{capsu QD Metoprolol Succinate Succinate le} Succinate 200 MG 200 MG 200 MG Decara 250 Decara 250 No Decara 250 MCG (33863 MCG (25216 MCG (09693 UT) UT) UT) Metformin Metformin No 1{table BID Metformin HCl 1000 MG HCl 1000 MG t_with_ HCl 1000 meals} MG Synjardy XR Synjardy XR No Synjardy XR Tresiba Tresiba No Tresiba Testosteron Testosteron No 1{ml} Testostero e Cypionate e Cypionate ne 200 MG/ML 200 MG/ML Cypionate 200 MG/ML Crestor Crestor No Crestor Decara 250 Decara 250 No Decara 250 MCG (04076 MCG (38900 MCG (44230 UT) UT) UT) Synjardy XR Synjardy XR [...] 250 Decara 250 No Decara 250 MCG (60882 MCG (93094 MCG (41490 UT) UT) UT) Losartan Losartan No 1{table [...] 250 Decara 250 No Decara 250 MCG (99835 MCG (45045 MCG (84312 UT) UT) UT) Losartan Losartan No 1{table [...] 250 Decara 250 No Decara 250 MCG (04006 MCG (15346 MCG (53636 UT) UT) UT) Synjardy XR Synjardy XR [...] 250 Decara 250 No Decara 250 MCG (30229 MCG (59892 MCG (20475 UT) UT) UT) Losartan Losartan No 1{table [...] 250 Decara 250 No Decara 250 MCG (72264 MCG (37014 MCG (73632 UT) UT) UT) Losartan Losartan No 1{table [...] 250 Decara 250 No Decara 250 MCG (27679 MCG (30148 MCG (40581 UT) UT) UT) Metoprolol Metoprolol No 1{capsu QD Metoprolol Succinate Succinate le} Succinate 200 MG 200 MG 200 MG Trulicity Trulicity No Trulicity Crestor Crestor No Crestor Aspirin 81 Aspirin 81 No 1{table QD Aspirin 81 81 MG 81 MG t} 81 MG Synjardy XR Synjardy XR No Synjardy XR Decara 250 Decara 250 No Decara 250 MCG (18459 MCG (80180 MCG (32473 UT) UT) UT) Trulicity Trulicity No Trulicity [...] 250 Decara 250 No Decara 250 MCG (32970 MCG (07416 MCG (40718 UT) UT) UT) Trulicity Trulicity No Trulicity [...] 80mg Gentamicin 80mg 2020-12-03 Completed Comm on 07:48:00 [facility] Gentamicin 80mg Gentamicin 80mg 2020-12-03 Completed Comm on - :48:00 [facility] Gentamicin 80mg Gentamicin 80mg 2020-12-03 Completed Comm on - :48:00 [facility] Gentamicin 80mg Gentamicin 80mg 2020-12-03 Completed Comm on - :48:00 [facility] Non-US Vaccine Non-US Vaccine 2020-10-21 Completed [facility] COVID-19 PS COVID-19 PS 00:00:00 Practice (EpiVacCorona) (EpiVacCorona) Non-US Vaccine Non-US Vaccine 2020-10-21 Completed [facility] [...] [facility] adsorbed adsorbed 00:00:00 Practice tetanus toxoid, tetanus toxoid, 2014-11-02 Completed [facility] adsorbed adsorbed 00:00:00 Practice Vital Signs Vital Name Observation Time Observation Value Comments Source WEIGHT 2021-05-30 06:36:00 126.4 kg HEIGHT 2021-05-30 06:36:00 177.8 cm WEIGHT 2021-05-21 10:26:00 126.1 kg HEIGHT 2021-05-21 10:26:00 177.8 cm BP Diastolic 2022-12-03 00:00:00 94 mm[Hg] [facility] Height 2022-12-03 00:00:00 70 [in_i] [facility] BMI (Body Mass Index) 2022-12-03 00:00:00 35.7 kg/m2 [facility] BP Systolic 2022-12-03 00:00:00 144 mm[Hg] [facility] Body Weight 2022-12-03 00:00:00 249 [lb_av] [facility] height 2022-09-03 08:00:00 70 [in_i] Common [facility] weight 2022-09-03 08:00:00 247.6 [lb_av] [facility] temperature 2022-09-03 08:00:00 98.1 [degF] [facility] bmi 2022-09-03 08:00:00 35.52 kg/m2 [facility] oximetry 2022-09-03 08:00:00 99 % [facility] respiratory rate 2022-09-03 08:00:00 18 /min Comm on [facility] blood pressure 2022-09-03 08:00:00 156 mm[Hg] [facility] - systolic [facility] blood pressure 2022-09-03 08:00:00 87 mm[Hg] [facility] diastolic [facility] BP Diastolic 2022-07-10 00:00:00 118 mm[Hg] [facility] Height 2022-07-10 00:00:00 70 [in_i] [facility] BMI (Body Mass Index) 2022-07-10 00:00:00 36.4 kg/m2 [facility] BP Systolic 2022-07-10 00:00:00 168 mm[Hg] [facility] Body Weight 2022-07-10 00:00:00 254 [lb_av] [facility] height 2022-06-02 16:00:00 70 [in_i] [facility] weight 2022-06-02 16:00:00 249.2 [lb_av] [facility] temperature 2022-06-02 16:00:00 98.6 [degF] [facility] bmi 2022-06-02 16:00:00 35.75 kg/m2 [facility] oximetry 2022-06-02 16:00:00 98 % [facility] respiratory rate 2022-06-02 16:00:00 16 /min Comm on [facility] blood pressure 2022-06-02 16:00:00 114 mm[Hg] Common [facility] - systolic [facility] blood pressure 2022-06-02 16:00:00 77 mm[Hg] Common [facility] - diastolic [facility] height 2022-05-01 10:00:00 70 [in_i] [facility] weight 2022-05-01 10:00:00 264 [lb_av] [facility] temperature 2022-05-01 10:00:00 97.6 [degF] [facility] bmi 2022-05-01 10:00:00 37.88 kg/m2 [facility] oximetry 2022-05-01 10:00:00 99 % [facility] respiratory rate 2022-05-01 10:00:00 16 /min Comm on [facility] blood pressure 2022-05-01 10:00:00 144 mm[Hg] Common [facility] - systolic [facility] blood pressure 2022-05-01 10:00:00 85 mm[Hg] Common [facility] - diastolic [facility] BP Diastolic 2022-04-23 00:00:00 82 mm[Hg] [facility] Height 2022-04-23 00:00:00 70 [in_i] [facility] BMI (Body Mass Index) 2022-04-23 00:00:00 38.3 kg/m2 [facility] BP Systolic 2022-04-23 00:00:00 121 mm[Hg] [facility] Body Weight 2022-04-23 00:00:00 267 [lb_av] [facility] height 2022-04-04 10:15:00 70 [in_i] [facility] weight 2022-04-04 10:15:00 265 [lb_av] [facility] temperature 2022-04-04 10:15:00 98.1 [degF] [facility] bmi 2022-04-04 10:15:00 38.02 kg/m2 [facility] oximetry 2022-04-04 10:15:00 99 % Common [facility] respiratory rate 2022-04-04 10:15:00 16 /min Comm on [facility] blood pressure 2022-04-04 10:15:00 132 mm[Hg] [facility] blood pressure 2022-04-04 10:15:00 86 mm[Hg] [facility] - diastolic [facility] BP Diastolic 2022-01-27 00:00:00 80 mm[Hg] [facility] Height 2022-01-27 00:00:00 70 [in_i] [facility] BMI (Body Mass Index) 2022-01-27 00:00:00 41.6 kg/m2 [facility] BP Systolic 2022-01-27 00:00:00 137 mm[Hg] [facility] Body Weight 2022-01-27 00:00:00 290 [lb_av] [facility] height 2021-12-11 08:00:00 70 [in_i] [facility] weight 2021-12-11 08:00:00 275 [lb_av] [facility] temperature 2021-12-11 08:00:00 97.7 [degF] [facility] bmi 2021-12-11 08:00:00 39.45 kg/m2 [facility] oximetry 2021-12-11 08:00:00 98 % Common [facility] respiratory rate 2021-12-11 08:00:00 16 /min Comm on [facility] blood pressure 2021-12-11 08:00:00 168 mm[Hg] Common [facility] - systolic [facility] blood pressure 2021-12-11 08:00:00 83 mm[Hg] Common [facility] - diastolic [facility] height 2021-10-10 08:15:00 70 [in_i] Common [facility] weight 2021-10-10 08:15:00 274 [lb_av] Common [facility] temperature 2021-10-10 08:15:00 97.6 [degF] [facility] bmi 2021-10-10 08:15:00 39.31 kg/m2 [facility] oximetry 2021-10-10 08:15:00 98 % Common [facility] respiratory rate 2021-10-10 08:15:00 18 /min Comm on [facility] - [facility] blood pressure 2021-10-10 08:15:00 148 mm[Hg] [facility] - systolic [facility] blood pressure 2021-10-10 08:15:00 89 mm[Hg] [facility] - diastolic [facility] height 2021-09-05 10:00:00 70 [in_i] Common [facility] weight 2021-09-05 10:00:00 270 [lb_av] [facility] temperature 2021-09-05 10:00:00 97.2 [degF] Common [facility] bmi 2021-09-05 10:00:00 38.74 kg/m2 [facility] oximetry 2021-09-05 10:00:00 96 % [facility] blood pressure 2021-09-05 10:00:00 146 mm[Hg] [facility] - systolic [facility] blood pressure 2021-09-05 10:00:00 89 mm[Hg] [facility] - diastolic [facility] height 2021-08-09 13:45:00 70 [in_i] Common [facility] weight 2021-08-09 13:45:00 270 [lb_av] [facility] temperature 2021-08-09 13:45:00 98 [degF] [facility] bmi 2021-08-09 13:45:00 38.74 kg/m2 [facility] oximetry 2021-08-09 13:45:00 96 % Common [facility] - [facility] blood pressure 2021-08-09 13:45:00 131 mm[Hg] [facility] - systolic [facility] blood pressure 2021-08-09 13:45:00 75 mm[Hg] [facility] - diastolic [facility] height 2021-07-24 15:30:00 70 [in_i] Common [facility] - [facility] weight 2021-07-24 15:30:00 275 [lb_av] Common [facility] temperature 2021-07-24 15:30:00 98.3 [degF] Common [facility] bmi 2021-07-24 15:30:00 39.45 kg/m2 [facility] oximetry 2021-07-24 15:30:00 97 % [facility] blood pressure 2021-07-24 15:30:00 166 mm[Hg] [facility] - [facility] blood pressure 2021-07-24 15:30:00 92 mm[Hg] [facility] - diastolic [facility] Height 2021-07-11 00:00:00 70 [in_i] [facility] BMI (Body Mass Index) 2021-07-11 00:00:00 39.7 kg/m2 [facility] Body Weight 2021-07-11 00:00:00 276.6 [lb_av] [facility] height 2021-06-13 13:30:00 70 [in_i] Common [facility] weight 2021-06-13 13:30:00 275 [lb_av] [facility] temperature 2021-06-13 13:30:00 98.3 [degF] [facility] bmi 2021-06-13 13:30:00 39.45 kg/m2 [facility] oximetry 2021-06-13 13:30:00 99 % Common [facility] blood pressure 2021-06-13 13:30:00 158 mm[Hg] [facility] - systolic [facility] blood pressure 2021-06-13 13:30:00 85 mm[Hg] [facility] - diastolic [facility] height 2021-06-07 15:00:00 70 [in_i] Common [facility] weight 2021-06-07 15:00:00 275 [lb_av] Common [facility] temperature 2021-06-07 15:00:00 98.2 [degF] Common [facility] bmi 2021-06-07 15:00:00 39.45 kg/m2 [facility] 2021-06-07 15:00:00 95 % [facility] blood pressure 2021-06-07 15:00:00 146 mm[Hg] [facility] - [facility] blood pressure 2021-06-07 15:00:00 78 mm[Hg] [facility] - diastolic [facility] WEIGHT 2021-05-30 06:36:00 126.4 kg HEIGHT 2021-05-30 06:36:00 177.8 cm WEIGHT 2021-05-21 10:26:00 126.1 kg HEIGHT 2021-05-21 10:26:00 177.8 cm BP Diastolic 2021-04-23 00:00:00 74 mm[Hg] [facility] Height 2021-04-23 00:00:00 70 [in_i] [facility] BMI (Body Mass Index) 2021-04-23 00:00:00 40.5 kg/m2 [facility] BP Systolic 2021-04-23 00:00:00 119 mm[Hg] [facility] Body Weight 2021-04-23 00:00:00 282.4 [lb_av] [facility] BP Diastolic 2021-01-02 00:00:00 87 mm[Hg] [facility] Height 2021-01-02 00:00:00 70 [in_i] [facility] BMI (Body Mass Index) 2021-01-02 00:00:00 39.5 kg/m2 [facility] BP Systolic 2021-01-02 00:00:00 147 mm[Hg] [facility] Body Weight 2021-01-02 00:00:00 275 [lb_av] [facility] BP Diastolic 2020-10-10 00:00:00 98 mm[Hg] [facility] Height 2020-10-10 00:00:00 70 [in_i] [facility] BMI (Body Mass Index) 2020-10-10 00:00:00 39 kg/m2 [facility] BP Systolic 2020-10-10 00:00:00 138 mm[Hg] [facility] Body Weight 2020-10-10 00:00:00 272 [lb_av] [facility] Procedures This patient has no known procedures. Plan of Care Planned Activity Planned Date Details Comments Source Future Scheduled 2024-11-02 DTAP/TDAP/TD VACCINES [facility] 00:00:00 (3 - Td or Tdap) [code Medic al Center = DTAP/TDAP/TD VACCINES (3 - Td or Tdap)] Future Scheduled 2024-11-02 DTAP/TDAP/TD VACCINES [facility] 00:00:00 (3 - Td or Tdap) [code Medic al Center = DTAP/TDAP/TD VACCINES (3 - Td or Tdap)] Diagnostic Test 2022-12-03 glucose, fingerstick, [facility] Pending 00:00:00 blood [code = glucose, Pract ice fingerstick, blood] Diagnostic Test 2022-12-03 hemoglobin A1C, [facility] Bria ramesh Pending 00:00:00 fingerstick [code = Practice hemoglobin A1C, fingerstick] Future Scheduled 2022-11-[address] [facility] Test 00:00:00 (12+) [code = Medical Center DEPRESSION SCREENING (12+)] Future Scheduled 2022-11-[address] [facility] Test 00:00:00 (12+) [code = Medical Center DEPRESSION SCREENING (12+)] Future Scheduled 2022-07-03 INFLUENZA VACCINE (#1) [facility] 00:00:00 [code = INFLUENZA Medical Ce nter VACCINE (#1)] Future Scheduled 2022-07-03 INFLUENZA VACCINE (#1) [facility] 00:00:00 [code = INFLUENZA Medical Ce nter VACCINE (#1)] Future Scheduled 2022-05-[address] [facility] Test 00:00:00 Counseling and Medical Cente r Screening (12+) [code = Tobacco Cessation Counseling and Screening (12+)] Future Scheduled 2022-05-[address] [facility] Test 00:00:00 Counseling and Medical Cente r Screening (12+) [code = Tobacco Cessation Counseling and Screening (12+)] Future Scheduled 2022-05-07 COVID-19 Vaccination Uni versity of Test 07:15:23 (#1) [code = COVID-19 [facility] Vaccination (#1)] Cancer Leyla ter Future Scheduled 2022-05-07 COVID-19 Vaccination Uni versity of Test 07:15:23 (#1) [code = COVID-19 [facility] Vaccination (#1)] Cancer Leyla ter Future Scheduled 2013-08-[address] [facility] 00:00:00 (procedure) [code = [facility] [id number]] Future Scheduled 2013-08-[address] [facility] 00:00:00 (procedure) [code = [facility] [id number]] Future Scheduled 2011 SHINGLES VACCINES ([address] [facility] 00:00:00 of 2) [code = SHINGLES Medic al Center VACCINES (1 of 2)] Future Scheduled 2011 SHINGLES VACCINES ([address] [facility] Test 00:00:00 of 2) [code = SHINGLES Medic al Center VACCINES (1 of 2)] Future Scheduled 1979 HEPATITIS C SCRE[facility]ING [facility] 00:00:00 [code = HEPATITIS C Medical Center SCREENING] Future Scheduled 1979 HEPATITIS C SCRE[facility]ING [facility] 00:00:00 [code = HEPATITIS C Medical Center SCREENING] Future Scheduled 1961 COVID-19 VACCINE (#1) [facility] 00:00:00 [code = COVID-[address] VACCINE (#1)] Future Scheduled 1961 COVID-19 VACCINE (#1) [facility] 00:00:00 [code = COVID-[address] VACCINE (#1)] Future Scheduled [address] [facility] 00:[facility]:00 malignant neoplasm of Medica l Center colon (procedure) [code = 229175271] Future Scheduled [address] [facility] 00:00:00 malignant neoplasm of Medica l Center colon (procedure) [code = 236282730] Future Scheduled [address] [facility] 00:00:00 malignant neoplasm of Medica l Center colon (procedure) [code = 605288803] Future Scheduled [address] [facility] 00:00:00 malignant neoplasm of Medica l Center colon (procedure) [code = 497270327] Future Scheduled 1961 Sigmoidoscopy [code = [facility] Sigmoidoscopy] Medical Cente r Future Scheduled [address] [facility] 00:00:00 (combo) [code = CT Medical C enter Colonography (combo)] Future Scheduled [address] [facility] 00:00:00 malignant neoplasm of Medica l Center colon (procedure) [code = 683515793] Future Scheduled [address] [facility] 00:00:00 malignant neoplasm of Medica l Center colon (procedure) [code = 829583594] Future Scheduled [address] [facility] 00:00:00 malignant neoplasm of Medica l Center colon (procedure) [code = 713574609] Future Scheduled [address] [facility] 00:00:00 malignant neoplasm of Medica l Center colon (procedure) [code = 507003870] Future Scheduled 1961 Sigmoidoscopy [code = [facility] 00:[facility] Sigmoidoscopy] Medical Cente r Future Scheduled [address] [facility] 00:00:00 (combo) [code = CT Medical C enter Colonography (combo)] Future Appointment 2023-03-17 Luis Vega, [id number] [facility] 07:15:00 Shadow Yurokzuhair Jackson; Practice [address], [place] [address] Encounters Start End Encounter Admission Attending Care Care Encounter Source Date/Time Date/Time Type Type Clinicians Facility Department ID 2021-11-27 Outpatient [place], [facility] [id number] Common 13:21:10 Anshu [id number] [facility] 2021-11-27 Outpatient [place], STLMLC [facility] [id number] Common 13:13:58 Anshu [id number] [facility] 2021-11-27 Outpatient [place], [facility] [id number] Common 13:06:30 Anshu [id number] [facility] 2021-11-27 Outpatient [place], [facility]MLC [facility] [id number] Common 13:00:38 Anshu [id number] [facility] 2021-11-27 Outpatient [place], STLMLC [facility] [id number] Common 12:08:29 Anshu [id number] [facility] 2021-08-11 Inpatient WELSH, SLE Surgery [id number] SLE 03:16:51 AYAN 2021-01-04 Outpatient SYSTEM, [facility] CANDIDA [id number] 07:53:56 PROVIDER Angel davis 2022-12-03 2022-12-03 Outpatient Daniel_T VFP VFP [id number] [id number] [facility] 00:00:00 00:00:00 [id number] Family Jeyson e 2022-12-03 2022-12-03 Luis P [place] - [id number] V illage 00:00:00 00:00:00 [facility] Ananth Vega - Elizabeth conde MD: [id number] [place] - e Shadow _HOU_[facility], [address], [place] [address] , Ph. 2022-11-30 2022-11-30 Outpatient Daniel_T VFP VFP [id number] [id number] [facility] 00:00:00 00:00:00 [id number] Family Practic e 2022-09-03 2022-09-03 [facility] [id number] Co mmon 00:00:00 00:00:00 VISIT [facility] LEVEL 4 [facility] 2022-07-14 2022-07-14 Outpatient Daniel_T VFP VFP [id number] [facility] 00:00:00 00:00:00 [id number] Family Practic e 2022-07-10 2022-07-10 Outpatient Daniel_T VFP VFP [id number] [facility] 00:00:00 00:00:00 [id number] Family Practic e 2022-07-10 2022-07-10 Luis VFP [place] - [id number] V illage 00:00:00 [facility]:00:00 [facility] Ananth Vega MD: [id number] ALLEN_ROXANA_Juan Francisco sary Shadow ow [address], [address], [place] [address] , Ph. 2022-06-04 2022-06-04 Outpatient Daniel_T VFP VFP [id number] [facility] 00:00:00 00:00:00 [id number] Family Practic e 2022-06-02 2022-06-02 OFFICE [facility] [id number] Co mmon 00:00:00 00:00:00 VISIT Juan Pablo [facility] PT - CHI LEVEL 5 [facility] 2022-05-14 2022-05-14 Outpatient Daniel_T VFP VFP [id number] [facility] 12:21:00 12:21:00 [id number] Family Practic e 2022-05-01 2022-05-01 OFFICE STLMLC [facility] [id number] Co mmon 00:00:00 00:00:00 VISIT Juan Pablo [facility] PT - CHI LEVEL 5 [facility] 2022-04-23 2022-04-23 Outpatient Daniel_T VFP VFP [id number] [facility] 03:46:00 03:46:00 [id number] Family Practic e 2022-04-23 2022-04-23 Luis VFP [place] - [id number] V illage 00:00:00 00:00:00 [facility] Ananth Vega MD: [id number] GURU_Juan Francisco sary Shadow ow [address], [place] [address] , Ph. 2022-04-22 2022-04-22 Outpatient Daniel_T VFP VFP [id number] [id number] [facility] 12:29:00 12:29:00 [id number] Family Practic e 2022-04-04 2022-04-04 OFFICE STLMLC ST[facility] [id number] Co mmon 00:00:00 00:00:00 VISIT [facility] PT - [facility]I LEVEL 4 [facility] 2022-01-30 2022-01-30 Outpatient Daniel_T VFP VFP [id number] [id number] [facility] 08:56:00 08:56:00 [id number] Family Practic e 2022-01-27 2022-01-27 Outpatient Daniel_T VFP VFP [id number] [id number] [facility] 06:11:00 06:11:00 [id number] Family Practic e 2022-01-27 2022-01-27 Luis VFP [place] - [id number] V illage 00:00:00 00:00:00 [facility] Family Vega, Ananth - Pracabilio conde MD: [id number] VM_HOU_Shadanica e Shadow ow [address] [facility], [address], [place] [address] , Ph. 2021-12-11 2021-12-11 OFFICE STLC STLC [id number] Co mmon 00:00:00 00:00:00 VISIT [facility] PT - CHI LEVEL 4 [facility] 2021-12-02 2021-12-02 Telephone Casey, Torrie.[id number] [facility] 00:00:00 00:00:00 Dian [id number] ity of [id number] [place] [id number] [facility] 2021-10-28 2021-10-28 (TEL) STLMLC STLMLC [id number] Co mmon 00:00:00 00:00:00 [facility] - [facility] 2021-10-10 2021-10-10 OFFICE STLMLC STLMLC [id number] Co mmon 00:00:00 00:00:00 VISIT [facility] ESTAB PT - CHI LEVEL 4 [facility] 2021-10-01 2021-10-01 (TEL) STLMLC STLMLC [id number] Co mmon 00:00:00 00:00:00 [facility] 2021-09-05 2021-09-05 [facility] [id number] Co mmon 00:00:00 00:00:00 VISIT [facility] LEVEL 4 [facility] 2021-08-19 2021-08-19 Outpatient Daniel_T VFP VFP [id number] [id number] [facility] 11:24:00 11:24:00 [id number] Family Practic e 2021-08-19 2021-08-19 Outpatient Daniel_T VFP VFP [id number] [id number] [facility] 11:24:00 11:24:00 [id number] Family Practic e 2021-08-19 2021-08-19 Outpatient Daniel_T VFP VFP [id number] [id number] [facility] 11:24:00 11:24:00 [id number] Family Practic e 2021-08-09 2021-08-09 [facility]op [facility] [id number] Co mmon 00:00:00 00:00:00 visit [facility] 2021-07-26 2021-07-26 Outpatient Daniel_T VFP VFP [id number] [id number] [facility] 04:29:00 04:29:00 [id number] Family Practic e 2021-07-24 2021-07-24 Postop [facility] [id number] Co mmon 00:00:00 00:00:00 visit [facility] 2021-07-16 2021-07-16 Outpatient Daniel_T VFP VFP [id number] [id number] [facility] 06:34:00 06:34:00 [id number] Family Practic e 2021-07-11 2021-07-11 Outpatient Daniel_T VFP VFP [id number] [id number] [facility] 10:34:00 10:34:00 [id number] Family Practic e 2021-07-11 2021-07-11 Luis VFP [place] - [id number] V illage 00:00:00 00:00:00 [facility] Family VegaAnanth - Elizabeth conde MD: [id number] VM_ROXANA_Juan Francisco e Shadow ow [address] [facility], [address], [place] [address] , Ph. 2021-06-13 2021-06-13 Postop STLMLC STLMLC [id number] Co mmon 00:00:00 00:00:00 visit [facility] 2021-06-07 2021-06-07 NON-BILLAB STLMLC STLMLC [id number] Common 00:00:00 00:00:00 LE [facility] 2021-05-28 2021-05-28 Outpatient STLMLC STLMLC [id number] Common 00:00:00 00:00:00 [facility] 2021-05-23 2021-05-23 Outpatient STLMLC STLMLC [id number] Common 00:00:00 00:00:00 [facility] 2021-05-21 2021-05-21 Outpatient EL [facility] [id number] [facility] 00:00:00 00:00:00 2021-05-21 2021-05-21 Outpatient STLMLC STLMLC [id number] Common 00:00:00 00:00:00 [facility] 2021-05-20 2021-05-20 Outpatient STLMLC STLMLC [id number] Common 00:00:00 00:00:00 [facility] 2021-05-13 2021-05-13 Outpatient STLMLC STLMLC [id number] Common 00:00:00 00:00:00 [facility] 2021-05-02 2021-05-02 Outpatient STLMLC STLMLC [id number] Common 00:00:00 00:00:00 [facility] 2021-04-25 2021-04-25 Outpatient Daniel_T VFP VFP [id number] [id number] [facility] 08:18:00 08:18:00 [id number] Family Practic e 2021-04-25 2021-04-25 Outpatient Daniel_T VFP VFP [id number] [id number] [facility] 08:18:00 08:18:00 [id number] Family Practic e 2021-04-24 2021-04-24 Outpatient Daniel_T VFP VFP [id number] [id number] [facility] 10:46:00 10:46:00 [id number] Family Practic e 2021-04-23 2021-04-23 Outpatient Gary_T VFP VFP [id number] [facility] 06:26:00 06:26:00 [id number] Family Practic e 2021-04-23 2021-04-23 Luis VFP [place] - [id number] V illage 00:00:00 00:00:00 [facility] Family VegaAnanth - Pracabilio conde MD: [id number] VM_HOU_Shadanica e Shadow ow [address], [address], [place] [address] , Ph. 2021-04-11 2021-04-11 Outpatient STLMLC STLMLC [id number] Common 00:00:00 00:00:00 [facility] 2021-04-02 2021-04-02 Outpatient STLMLC STLMLC [id number] Common 00:00:00 00:00:00 [facility] 2021-03-20 2021-03-20 Outpatient STLMLC STLMLC [id number] Common 00:00:00 00:00:00 [facility] 2021-03-12 2021-03-12 Outpatient STLMLC STLMLC [id number] Common 00:00:00 00:00:00 [facility] 2021-03-11 2021-03-11 Outpatient STLMLC STLMLC [id number] Common 00:00:00 00:00:00 [facility] 2021-03-08 2021-03-08 Outpatient STLMLC STLMLC [id number] Common 00:00:00 00:00:00 [facility] 2021-03-08 2021-03-08 Outpatient STLMLC STLMLC [id number] Common 00:00:00 00:00:00 [facility] 2021-03-08 2021-03-08 Outpatient STLMLC STLMLC [id number] Common 00:00:00 00:00:00 [facility] 2021-03-08 2021-03-08 Outpatient STLMLC STLMLC [id number] Common 00:00:00 00:00:00 [facility] 2021-03-01 2021-03-01 Outpatient STLMLC STLMLC [id number] Common 00:00:00 00:00:00 [facility] 2021-02-07 2021-02-07 Outpatient CELINE LAUGHLIN [facility] [id number] 06:49:52 06:49:52 CELESTE davis 2021-01-21 2021-01-21 Outpatient Daniel_T VFP VFP [id number] [id number] [facility] 08:21:00 08:21:00 [id number] [facility] 2021-01-04 2021-01-04 Outpatient Daniel_T VFP VFP [id number] [id number] [facility] 01:28:00 01:28:00 [id number] Family Practic e 2021-01-02 2021-01-02 Outpatient Daniel_T VFP VFP [id number] [id number] [facility] 11:37:00 11:37:00 [id number] Family Practic e 2021-01-02 2021-01-02 Luis VFP [place] - [id number] V illage 00:00:00 00:00:00 [facility] Family Vega, Ananth - Elizabeth conde MD: [id number] VM_ROXANA_Juan Francisco e [facility], [address], [place] [address] , Ph. 2021-01-02 2021-01-02 Outpatient STLMLC STLMLC [id number] Common 00:00:00 00:00:00 [facility] 2020-12-13 2020-12-13 Outpatient STLMLC STLMLC [id number] Common 00:00:00 00:00:00 [facility] 2020-12-03 2020-12-03 Outpatient STLMLC STLMLC [id number] Common 00:00:00 00:00:00 [facility] 2020-11-17 2020-11-17 Outpatient Daniel_T VFP VFP [id number] [id number] [facility] 01:27:00 01:27:00 [id number] Family Practic e 2020-11-14 2020-11-14 Outpatient STLMLC STLC [id number] Common 00:00:00 00:00:00 [facility] 2020-11-07 2020-11-07 Outpatient STLMLC STLMLC [id number] Common 00:00:00 00:00:00 [facility] 2020-11-07 2020-11-07 Outpatient STLMLC STLMLC [id number] Common 00:00:00 00:00:00 [facility] 2020-10-16 2020-10-16 Outpatient Daniel_T VFP VFP [id number] 0-20 [facility] 06:20:00 06:20:00 [id number] Family Practic e 2020-10-10 2020-10-10 Outpatient Daniel_T VFP VFP [id number] 0-20 [facility] 12:24:00 12:24:00 Family Practic e 2020-10-10 2020-10-10 Luis VFP [place] - [id number] V illage 00:00:00 00:00:00 [facility] Family VegaAnanth - Pracabilio conde MD: [id number] VM_HOU_Ignacio e [address] [address] , Ph. 2020-10-09 2020-10-09 Outpatient Daniel_T VFP VFP [id number] 0-20 [facility] 05:40:00 05:40:00 Family Practic e 2020-09-26 2020-09-26 [facility] [id number] Common 00:00:00 00:00:00 [facility] 2020-09-18 2020-09-18 Outpatient Daniel_T VFP VFP [id number] 0-20 [facility] 11:12:00 11:12:00 [id number] Family Practic e 2020-08-23 2020-08-23 Outpatient Daniel_T VFP VFP [id number] [id number] [facility] 10:14:00 10:14:00 [id number] Family Practic e 2020-07-04 2020-07-04 Outpatient Daniel_T VFP VFP [id number] 0-20 [facility] 10:46:00 10:46:00 [id number] Family Practic e 2020-05-04 2020-05-04 Telephone SHIRA Velázquez [id number] 00:00:00 00:00:00 David COSBY [id number] [facility] [id number] [facility] 2020-05-04 2020-05-04 Telephone SHIRA Velázquez [id number] Univers 00:00:00 00:00:00 David DE LEONY [id number] i ty of [facility] [id number] Evan as [id number] [address] 2020-05-03 2020-05-03 Laboratory Lab, [facility] [id number] 08:08:53 08:28:53 Only Fam Pob I Health [id number] [place] [id number] Professio [id number] [place] [id number] Office [facility] 2020-05-03 2020-05-03 Laboratory Lab, [facility] Fam Pob I [facility] [id number] [facility] 08:08:53 08:28:53 Only Sherry Skinner A Health [id number] ity of [place] [id number] Evan as Professio [phone] Me dical [address] Office [facility] 2020-05-03 2020-05-03 Outpatient R [facility] [id number] Univers 08:00:00 08:00:00 [facility] Results Test Description Test Time Test Comments Results Result Comments Source Glucose [Mass/volume] in Capillary blood 2022-12-03 08:38:59 Test Item Value Reference Range Interpretation Comme nts Blood Glucose: mg/dl (test code = Blood Glucose: mg/dl) 162 [facility] [id number] 08:31:16 Test Item Value Reference Range Interpretation Comments Hemoglobin A1c/Hemoglobin.total in 7.3 % 5.7-6.4 Blood (test code = 4548-4) [facility] [id number] 08:25:52 Test Item Value Reference Range Interpretation Comments Hemoglobin A1c/Hemoglobin.total in 7.2 % 5.7-6.4 Blood (test code = 4548-4) [facility]] in Capillary [id number] 08:25:41 Test Item Value Reference Range Interpretation Comments Blood Glucose: mg/dl (test code = Blood 176 Glucose: mg/dl) [facility] [id number] 13:43:07 Test Item Value Reference Range Interpretation Comments Hemoglobin A1C Fingerstick: (test code 8.9 = Hemoglobin A1C Fingerstick:) [facility] [id number] 13:43:07 Test Item Value Reference Range Interpretation Comments Hemoglobin A1C Fingerstick: (test code 8.9 = Hemoglobin A1C Fingerstick:) [facility] [[facility]/volume] in Capillary [id number] 13:39:30 Test Item Value Reference Range Interpretation Comments Blood Glucose: mg/dl (test code = Blood 303 Glucose: mg/dl) [facility] [[facility]/volume] in Capillary [id number] 13:39:30 Test Item Value Reference Range Interpretation Comments Blood Glucose: mg/dl (test code = Blood 303 Glucose: mg/dl) [facility] [[facility]/volume] in Capillary [id number] 15:50:10 Test Item Value Reference Range Interpretation Comments Blood Glucose: mg/dl (test code = Blood 279 Glucose: mg/dl) [facility] [id number] 15:49:57 Test Item Value Reference Range Interpretation Comments Hemoglobin A1C Fingerstick: (test code 8.4 = Hemoglobin A1C Fingerstick:) [facility] CenterTISSUE [id number] 17:14:00Surgical Pathology Report Case: [id number] Authorizing Provider: Ayan Welsh MD Collected: 05/30/2021 01:42 PM Ordering Location: [facility] PERIOPERATIVE Received: 05/31/2021 09:21 AM SERVICES [...] TISSUE IDENTIFIED Signing Pathologist Direct Phone Line: [phone] signed by Bernadine Christie MD on 06/10/2021 at 5:14 PMThe 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 All tumor is confined to the prostateand the surgical margins and seminal vesicles are negative. Ashlie pattern 4 represents no more than 10% of the total tumor mass. PROSTATE GLAND: Radical Prostatectomy (PROSTATE GLAND: RADICAL PROSTATECTOMY - All Specimens)8th Edition - Protocol posted: 12/28/2019SPECIMEN Procedure: Radical prostatectomy Prostate Size: Prostate Weight (g): 39.2 g Prostate Greatest Dimension (Centimeters): 4 cm Additional Dimension (Centimeters): 3.1 cm Additional Dimension (Centimeters): 3 cmTUMOR Histologic Type: Acinar adenocarcinoma Histologic Grade: Grade Group and Ashlie Score: Grade group 2 (Ashlie Score 3 + 4 = 7) Percentage of Pattern 4: 10 % Intraductal Carcinoma (IDC): Not identified Tumor Quantitation: Estimated percentage of prostate involved by tumor: 40 % Extraprostatic Extension (EPE): Not identified Urinary Bladder Neck Invasion: Not identified Seminal Vesicle Invasion: Not identified TreatmentEffect: No known presurgical therapy Lymphovascular Invasion: Not Identified Perineural Invasion: Present MARGINS Margins: Uninvolved by invasive carcinoma LYMPH NODES Regional Lymph Nodes: No lymph nodes submitted or found PATHOLOGIC STAGE CLASSIFICATION (pTNM, AJCC 8th Edition) Primary Tumor (pT): pT2 Regional Lymph Nodes (pN): pNX ADDITIONAL FINDINGS Additional Findings: High-grade prostatic intraepithelial neoplasia (PIN) Additional Findings: Nodular prostatic hyperplasia 87207, 12636Smqxiebr cancerA. ProstateB. Lymph node, anterior periprostatic lymph nodeA: Received is a radical prostatectomy specimen in formalin with the patient's name (Luiz Chau) with accession number [id number] andis a prostate with bilateral seminal vesicles [...] 1 possible intact lymph nodeB2-B9: Remainder of specimenChelsea TANA Sauer PA (ASCP)cmPerformed.[facility], Department of Pathology,[address] [place] [address], [facility], Departmentof Pathology, [address] [place] [address], [facility]qriawSan [facility], Department of Pathology, [address] [place] [address], ZTAQ-GLUCOSE [id number] 08:02:00 Test Item Value Reference Range Interpretation Comments POC-GLUCOSE METER 104 mg/dL 70-110 : TESTED A T [facility] 6720 (HEATHER) (test code = GAMA Sauceda [facility], 1538) 19950: Respiratory Support Technician/Techni sherita ID = [id number] for [place] EULALIO CURIEL HEMOGLOBIN AND [id number] 06:45:00 Test Item Value Reference Range Interpretation Comments HEMOGLOBIN (BEAKER) (test code = 10.8 GM/DL 13.7-17.5 L 410) HEMATOCRIT (BEAKER) (test code = 34.5 % 40.1-51.0 L 411) Respiratory Support Technician ID - [id number] METABOLIC [id number] 06:44:00 Test Item Value Reference Range Interpretation [...] S NOT APPLICABLE FOR DIALYSIS PATIEN TS. Respiratory Support Technician ID - CARLOS MPOCT-GLUCOSE [id number] 22:53:00 Test Item Value Reference Range Interpretation Comments POC-GLUCOSE METER 210 mg/dL 70-110 H : TESTED A T [facility] 6720 (BEAKER) (test code = [facility], 1538) 01928: Respiratory Support Technician/Techni sherita ID = [id number] for ON UOHA, FABIÁN POCT-GLUCOSE [id number] 16:54:00 Test Item Value Reference Range Interpretation Comments POC-GLUCOSE METER 181 mg/dL 70-110 H : TESTED A T [facility] 6720 (BEAKER) (test code = [facility], 1538) 41899: Respiratory Support Technician/Techni sherita ID = [id number] for DA VIS, KEYAIRA POCT-GLUCOSE [id number] 11:24:00 Test Item Value Reference Range Interpretation Comments POC-GLUCOSE METER 140 mg/dL 70-110 H : TESTED A T [facility] 6720 (BEAKER) (test code [facility], = 1538) 55319: Respiratory Support Technician/Techni sherita ID = [id number] for JAIM E MAGGIE, TENZIN POCT-GLUCOSE [id number] 10:12:00 Test Item Value Reference Range Interpretation Comments POC-GLUCOSE METER 88 mg/dL 70-110 : TESTED A T [facility] 6720 (BEAKER) (test code = [facility], 1538) 11559: Respiratory Support Technician/Techni sherita ID = [id number] for JAIM E MAGGIE, TENZIN POCT-GLUCOSE [id number] 07:48:00 Test Item Value Reference Range Interpretation Comments POC-GLUCOSE METER 74 mg/dL 70-110 : TESTED A T [facility] 6720 (BEAKER) (test code = [facility], 1538) 98926: Respiratory Support Technician/Techni sherita ID = [id number] for JAIM E MAGGIE, TENZIN BASIC METABOLIC [id number] 05:47:00 Test Item Value Reference Range Interpretation [...] S NOT APPLICABLE FOR DIALYSIS PATIEN TS. Respiratory Support Technician ID - CARLOS MHEMOGLOBIN AND [id number] 05:04:00 Test Item Value Reference Range Interpretation Comments HEMOGLOBIN (BEAKER) (test code = 11.2 GM/DL 13.7-17.5 L 410) HEMATOCRIT (BEAKER) (test code = 35.3 % 40.1-51.0 L 411) Respiratory Support Technician ID - [id number]-GLUCOSE [id number] 21:14:00 Test Item Value Reference Range Interpretation Comments POC-GLUCOSE METER 218 mg/dL 70-110 H : TESTED A T [facility] 6720 (BEAKER) (test code = [facility] [place], 1538) 23397: Respiratory Support Technician/Techni sherita ID = [id number] for NADIRA JACKSON BASIC METABOLIC [id number] 16:06:00 Test Item Value Reference Range Interpretation [...] S NOT APPLICABLE FOR DIALYSIS PATIEN TS. Respiratory Support Technician ID - DBHEMOGLOBIN AND [id number] 15:44:00 Test Item Value Reference Range Interpretation Comments HEMOGLOBIN (BEAKER) (test code = 12.0 GM/DL 13.7-17.5 L 410) HEMATOCRIT (BEAKER) (test code = 38.1 % 40.1-51.0 L 411) Respiratory Support Technician ID - [id number]-GLUCOSE [id number] 15:13:00 Test Item Value Reference Range Interpretation Comments POC-GLUCOSE METER 201 mg/dL 70-110 H : TESTED A T [facility] 6720 (OwnerIQ) (test code = [facility], 1538) 22641: Respiratory Support Technician/Techni sherita ID = [id number] for BERNADINE GOODWIN POCT-GLUCOSE [id number] 07:13:00 Test Item Value Reference Range Interpretation Comments POC-GLUCOSE METER 98 mg/dL 70-110 : TESTED A T [facility] 6720 (OwnerIQ) (test code = [facility], 1538) 27302: Respiratory Support Technician/Techni sherita ID = [id number] for NENO RAMEY PH
[2023-01-07] MEDS ORDERED: LIDOCAINE 1% 20 ML MDV ONE (08:21)
[2023-01-07] MEDS ORDERED: Phenylephrine HCl 10 MG/ML 1 ML VIAL ONE (08:26)
[2023-01-07] MEDS ORDERED: NA CHLORIDE 0.9% 0 ML ONE (08:29)
[2023-01-07 10:38] VITALS: TEMP 97.8; O2SAT 99
[2023-01-07 10:39] VITALS: BP 114/77
--- NOTE | 2023-01-23 15:14 | EDPHYS ---
Physician Documentation [facility] Name: Reji Wallace Age: 62 yrs Sex: Male : 1960 Arrival Date: 01/07/2023 Time: 08:01 Bed 13 Private MD: Anshu Herrera ED Physician Shine Yoon HPI: 01/07 10:22 This 62 yrs old Black Male presents to ER via Ambulatory with complaints of Penile ms3 Problem. 10:22 62-year-old male with past medical history of diabetes, hyperlipidemia, hypertension, ms3 prostate cancer presents for erection that began at 8 PM last night. Patient stated he used injectable erectile dysfunction medication prior to erection. Patient states he is having severe penis pain. Patient denies alleviating or inciting factors. Historical: - Allergies: 08:09 No Known Allergies; ap3 - PMHx: 08:09 Diabetes - NIDDM; High Cholesterol; Hypertension; Prostate Cancer; ap3 - Immunization history:: Client reports receiving the 2nd dose of the Covid vaccine. - Social history:: Smoking status: Patient denies any tobacco usage or history of. ROS: 10:22 Constitutional: Negative for fever, and chills. Neck: Negative for injury, pain, and ms3 swelling, Cardiovascular: Negative for chest pain, and palpitations. Respiratory: Negative for shortness of breath, cough, wheezing, and pleuritic chest pain, Abdomen/GI: Negative for abdominal pain, nausea, vomiting, diarrhea, and constipation, MS/Extremity: Negative for injury and deformity, Skin: Negative for injury, rash, and discoloration. 10:22 : Positive for penile pain, Erection. 10:22 All other systems are negative. Exam: 10:22 Constitutional: This is a well developed, well nourished patient who is awake, alert, ms3 and in no acute distress. Head/Face: Normocephalic, atraumatic. Neck: Trachea midline, no cervical lymphadenopathy. Supple, full range of motion without nuchal rigidity, or vertebral point tenderness. No Meningismus. Chest/axilla: Normal chest wall appearance and motion. Nontender with no deformity. Cardiovascular: Regular rate and rhythm with a normal S1 and S2. No gallops, murmurs, or rubs. Normal PMI, no JVD. No pulse deficits. Respiratory: Lungs have equal breath sounds bilaterally, clear to auscultation and percussion. No rales, rhonchi or wheezes noted. No increased work of breathing, no retractions or nasal flaring. 10:22 : Male external genitalia: Erection present. Vital Signs: 08:06 BP 157 / 101; Pulse 101; Resp 18; Temp 97.8(T); Pulse Ox 99% ; Weight 111.13 kg; Height ap3 5 ft. 9 in. ; Pain 10/10; 08:15 BP 114 / 77; Pulse 92; Resp 16; Pulse Ox 99% on R/A; ko1 08:06 Body Mass Index 36.18 (111.13 kg, 175.26 cm) ap3 08:06 Pain Scale: Adult ap3 MDM: 08:14 Patient medically screened. ms3 10:22 Differential diagnosis: over medication. Data reviewed: vital signs, nurses notes, and ms3 as a result, I will discharge patient. I considered the following discharge prescriptions or medication management in the emergency department Medications were administered in the Emergency Department. See MAR. Counseling: I had a detailed discussion with the patient and/or guardian regarding: the historical points, exam findings, and any diagnostic results supporting the discharge/admit diagnosis, the need for outpatient follow up. ED course: After aspiration and 500 mcg of phenylephrine detumescence obtained. Patient's pain resolved. Patient follow-up Dr. Wolff in 2 to 3 days. Patient understands and agrees with plan. All questions were answered. Return precautions discussed include worsening symptoms, or any other concerns.. Administered Medications: 08:46 Drug: Phenylephrine (PF) 200 mcg Route: IV; Rate: calculated rate; Site: Other; ko1 08:46 Drug: Lidocaine Infiltration (1 %) 3 ml Volume: 20 ml; Route: Infiltration; ko1 Disposition Summary: 01/07/23 10:20 Discharge Ordered Location: Home ms3 Condition: Stable ms3 Diagnosis - Priapism, drug-induced ms3 Followup: ms3 - With: Fito Wolff MD - When: 2 - 3 days - Reason: Recheck today's complaints Discharge Instructions: - Discharge Summary Sheet ms3 - Priapism ms3 Forms: - Medication Reconciliation Form ms3 - Thank You Letter ms3 - Antibiotic Education ms3 - Prescription Opioid Use ms3 Signatures: Nakita Nguyen RN RN ap3 Shine Yoon, DO ms3 Phuong Garcia, RN RN ko1
--- NOTE | 2023-01-23 15:14 | ER ---
Nurse's Notes [facility] Name: Reji Wallace Age: 62 yrs Sex: Male : 1960 Arrival Date: 01/07/2023 Time: 08:01 Bed 13 Private MD: Anshu Herrera Diagnosis: Priapism, drug-induced Presentation: 01/07 08:06 Chief complaint: Patient states: he took [id number] last night, and has had an erect ap3 penis since 8pm 01/06/23. Patient reports pain 10/10 on a pain scale. Coronavirus screen: At this time, the client does not indicate any symptoms associated with coronavirus-19. Ebola Screen: No symptoms or risks identified at this time. Initial Sepsis Screen: Does the patient meet any 2 criteria? No. Patient's initial sepsis screen is negative. Does the patient have a suspected source of infection? No. Patient's initial sepsis screen is negative. Risk Assessment: Do you want to hurt yourself or someone else? Patient reports no desire to harm self or others. Onset of symptoms was January 06, 2023 at 20:00. 08:06 Method Of Arrival: Ambulatory ap3 08:06 Acuity: ARIA 2 ap3 Triage Assessment: 08:09 General: Appears uncomfortable, Behavior is calm, cooperative. Pain: Complains of pain ap3 in groin Pain currently is 10 out of 10 on a pain scale. Neuro: Level of Consciousness is awake, alert, obeys commands, Oriented to person, place, time, situation. Cardiovascular: Patient's skin is warm and dry. Respiratory: Airway is patent Respiratory effort is even, unlabored, Respiratory pattern is regular, symmetrical. Historical: - Allergies: 08:09 No Known Allergies; ap3 - PMHx: 08:09 Diabetes - NIDDM; High Cholesterol; Hypertension; Prostate Cancer; ap3 - Immunization history:: Client reports receiving the 2nd dose of the Covid vaccine. - Social history:: Smoking status: Patient denies any tobacco usage or history of. Screenin:[address] [facility] ED Fall Risk Assessment (Adult) History of falling in the last 3 months, ap3 including since admission No falls in past 3 months (0 pts). Abuse screen: Denies threats or abuse. Nutritional screening: No deficits noted. Tuberculosis screening: No symptoms or risk factors identified. Assessment: 08:15 General: Appears in no apparent distress. uncomfortable, Behavior is calm, cooperative, ko1 appropriate for age. Pain: Complains of pain in pelvis and groin. Neuro: No deficits noted. Cardiovascular: No deficits noted. Respiratory: No deficits noted. GI: No deficits noted. : No deficits noted. EENT: No deficits noted. Derm: No deficits noted. Musculoskeletal: No deficits noted. 10:25 Reassessment: Patient appears in no apparent distress at this time. Patient and/or ko1 family updated on plan of care and expected duration. Pain level reassessed. Patient is alert, oriented x 3, equal unlabored respirations, skin warm/dry/pink. Patient states feeling better. Patient states symptoms have improved. Vital Signs: 08:06 BP 157 / 101; Pulse 101; Resp 18; Temp 97.8(T); Pulse Ox 99% ; Weight 111.13 kg; Height ap3 5 ft. 9 in. ; Pain 10/10; 08:15 BP 114 / 77; Pulse 92; Resp 16; Pulse Ox 99% on R/A; ko1 08:06 Body Mass Index 36.18 (111.13 kg, 175.26 cm) ap3 08:06 Pain Scale: Adult ap3 ED Course: 08:01 Patient arrived in ED. am2 08:02 Anshu Herrera MD is Private Physician. am2 08:02 Shine Yoon DO is Attending Physician. ms3 08:08 Triage completed. ap3 08:11 Arm band placed on right wrist. ap3 08:12 Phuong Garcia RN is Primary Nurse. ko1 08:15 Patient has correct armband on for positive identification. Placed in gown. Bed in low ko1 position. Call light in reach. Pulse ox on. NIBP on. Door closed. Noise minimized. Lights dimmed. Pillow given. 08:15 penile draining. ko1 10:19 Fito Wolff MD is Referral Physician. ms3 10:25 Patient did not have IV access during this emergency room visit. ko1 Administered Medications: 08:46 Drug: Phenylephrine (PF) 200 mcg Route: IV; Rate: calculated rate; Site: Other; ko1 08:46 Drug: Lidocaine Infiltration (1 %) 3 ml Volume: 20 ml; Route: Infiltration; ko1 Medication: 08:15 VIS not applicable for this client. ko1 Outcome: 10:20 Discharge ordered by . ms3 10:25 Discharged to home ambulatory. ko1 10:25 Condition: good 10:25 Discharge instructions given to patient, Instructed on discharge instructions, follow up and referral plans. Demonstrated understanding of instructions, follow-up care, medications. 10:34 Patient left the ED. ko1 Signatures: Nakita Moeller am2 Nakita Nguyen, RN RN ap3 Shine Yoon DO DO ms3 Phuong Garcia, FE RN ko1
== END 2023-01-07 10:34 | disposition home or self-care (01) ==
LOC: ER 07:58
DX: N48.33 Priapism, drug-induced (principal); Z85.46 Personal history of malignant neoplasm of prostate
CPT/HCPCS: 96374; 99283; J2001; J2370

== ENCOUNTER 2024-07-20 16:40 | Emergency (ER) | payer OTHER ==
--- OUTSIDE RECORDS SUMMARY | 2024-07-20 16:43 | XMS REPORT | Clinical Summary ---
Author Name Unknown Organization [facility] Address [address] [place] [address] Care Team Providers Care Gun Fitter Name Role Phone Jose Enrique Laughlin MD Primary Care Provider [phone] Dennis Rondon MD Unavailable Allergies No known active allergies Medications Medication Sig Dispensed Refills Start Date End Date Status empagliflozin-metform in (Synjardy XR) 12.5-1,000 mg TBph Take 2 tablets by mouth daily. Active losartan (COZAAR) 100 mg tablet Take 1 tablet by mouth daily. 10/17/2019 Active metoprolol succinate (TOPROL XL) 200 mg 24 hr tablet Take 1 tablet by mouth daily. 01/16/2021 Active rosuvastatin (CRESTOR) 10 mg tablet Take 1 tablet by mouth daily. 01/02/2021 Active tamsulosin (FLOMAX) 0.4 mg 24 hr capsule Take 1 capsule by mouth daily. 09/27/2020 Active sildenafil (VIAGRA) 100 MG tablet Take 1 tablet by mouth as needed. 09/19/2020 Active Tresiba FlexTouch U-200 200 unit/mL (3 mL) insulin pen Inject 3 mL under the skin as needed. 01/02/2021 Active Trulicity 1.5 mg/0.5 mL injection Inject 3 mg under the skin once a week. 11/30/2020 Active aspirin 81 mg EC tablet Take 1 tablet by mouth daily. Active diazePAM (Valium) 10 mg tabletIndications:Keiko nocarcinoma of prostate Take 1 tablet (10 mg) by mouth once as needed for sedation for up to 1 dose. 1 tablet 02/05/2021 Active Active Problems Problem Noted Date Diagnosed Date Type 2 diabetes mellitus 01/31/2021 Essential hemorrhagic thrombocythemia 01/19/2020 Anemia of chronic disease 12/20/2019 Type 2 diabetes mellitus wit h diabetic chronic kidney disease 12/20/2019 Coronary arteriosclerosis 12/20/2019 Hypertension 02/23/2019 Carcinoma of prostate 02/23/2019 Cancer Staging:Clinical stage from 01/31/2021:Stage Unknown(cT1c, cNX, PSA: 5.3, Grade Group: 2) - Signed by Jose Enrique Laughlin MD on 01/31/2021 Morbid obesity 02/23/2019 Herpes zoster 11/02/2018 Hypotestosteronism 01/30/2012 Male erectile dysfunction 08/09/2010 Diabetes mellitus 11/02/2008 Overview: Currently managed with insulin Morbid (severe) obesity due to excess calories 0 11/02/2000 Surgical History Surgery Date Site/Laterality Comments HEMORRHOID SURGERY 11/02/2004 - 11/01/2005 CARDIAC CATHETERIZATION 11/02/2004 - 11/01/2005 KNEE SURGERY 11/02/2000 - 11/01/2001 Medical History Medical History Date Comments Hypertension 2010 Hyperlipidemia 2010 Diabetes mellitus 2008 Currently linnea ged with insulin Herpes zoster 2018 Morbid (severe) obesity due to excess calories 2000 Patient currently weighs juan und 277 pounds. Patient states that his weight began to increase after he was 41 years of age Family History Medical History Relation Name Comments -Other cancer Father Kenna Wallace Esophageal can cer Brain cancer Father Kenna Wallace Lung cancer Father Kenna Wallace Prostate cancer Father Kenna Wallace Relation Name Status Comments Father Kenna Wallace Social History Tobacco Use Types Packs/Day Years Used Date Smoking Tobacco: Never Smokeless Tobacco: Never Alcohol Use Standard Drinks/Week Comments Yes 1 (1 standard drink = 0.6 oz pur e alcohol) Sex and Gender Information Value Date Recorded Sex Assigned at Not on file Gender Identity Not on file Sexual Orientation Not on file Job Start Date Occupation Industry Not on file Not on file Not on file Obstetrics History Plan of Treatment Health Maintenance Due Date Last Done Comments COVID-19 Vaccine (2022-2 4 season) 2024 Influenza Vaccine (#1) 2024 Pneumococcal Vaccine: Pediat rics (0 to 5 Years) and At-Risk Patients (6 to 64 Years) Aged Out 05/29/2011 No longer eligi ble based on patient's age to complete this topic Care Teams Gun Fitter Relationship Specialty Start Date End Date Jose Enrique Laughlin MD [address] [place] [address] [email or web address] PCP - General Urology 01/04/21 Dennis Rondon MD [address] [place] [address] [email or web address] Consulting Physician Radiation Oncology 01/31/21
[2024-07-20] MEDS ORDERED: INSULIN REGULAR (HUMAN) 100 UNIT/ML ONE (17:32)
[2024-07-20] MEDS ORDERED: NA CHLORIDE 0.9% 1,000 ML ONE ×2 (17:33→18:21)
[2024-07-20 17:55] LABS: Arterial Blood Carboxyhemoglob 0.9 % (0-1.5); Blood Gas THB 14.2 g/dl (12-18); Blood O2 Saturation 92.5 % (92-98.5)
[2024-07-20 18:07] LABS: Absolute Eosinophils 0.1 K/uL (0-0.5); Absolute Lymphocytes (CBC) 2.3 K/uL (0.7-4.9); Absolute Monocytes 0.6 K/uL (0.1-1.3); Absolute Neutrophil 5.5 K/uL (1.8-8.0); Basophils % 0.6 % (0-1.3); Eosinophils % 1.2 % (0-4.4); Hematocrit 39.9 % (39.6-49.0); Hemoglobin 13.2 g/dL (13.6-17.9); Lymphocytes % 26.5 % (15.3-44.8); MCHC 33.1 g/dL (32.0-36.0); MCV 93.5 fL (80-100); Monocytes % 6.8 % (3.3-12.3); Neutrophils % 64.9 % (41.7-73.7); Platelets 312 thou/uL (152-406); RBC Red Blood Cell Count 4.26 M/uL (4.33-5.43)
[2024-07-20] MEDS ORDERED: INSULIN GLARGINE 100 UNIT/ML SQ ONE (18:20)
[2024-07-20 18:24] LABS: Albumin 3.1 g/dL (3.4-5.0); Albumin/Globulin Ratio 0.7 (1.1-1.8); Anion Gap 9.7 mEq/L (5.0-15.0); BETA HYDROXYBUTYRATE 0.2 mmol/L (0.02-0.27); Bilirubin Total 0.2 mg/dL (0.2-1.0); Globulin 4.3 g/dL (2.3-3.5); Magnesium 1.7 mg/dL (1.6-2.4); Potassium 3.7 mEq/L (3.5-5.1); Protein, Total 7.4 g/dL (6.4-8.2)
--- NOTE | 2024-07-20 18:39 | EDPHYS ---
Physician Documentation [facility] Name: Reji Wallace Age: 64 yrs Sex: Male : 1960 Arrival Date: 07/20/2024 Time: 16:40 Bed 20 Private MD: ED Physician Roberto So HPI: 07/20 17:09 This 64 yrs old Black Male presents to ER via Ambulatory with complaints of High Blood sd2 Sugar. 17:09 64 yo M presents with CC of hyperglycemia sent from his PCP's office. Reports having sd2 COVID 2 weeks ago and being on paxlovid. They told him to stop some of his medications but he stopped them all and has not resumed them over the last 2 weeks. Reports PCP told him his blood sugar was in the 600s. He has had increased thirst, frequent urination and blurry vision as well.. Historical: - Allergies: 16:48 No Known Allergies; tm6 - PMHx: 16:48 Diabetes - NIDDM; High Cholesterol; Hypertension; Prostate Cancer; overactive bladder tm6 (right knee ); - PSHx: 16:48 prostatectomy; right knee; tm6 - Immunization history:: Client reports receiving the 2nd dose of the Covid vaccine. - Infectious Disease History:: Denies. - Social history:: Smoking status: Patient denies any tobacco usage or history of. ROS: 17:09 Constitutional: Negative for fever, chills, and weight loss, Eyes: Negative for injury, sd2 pain, redness, and discharge, Positive for blurred vision Cardiovascular: Negative for chest pain, palpitations, and edema, Respiratory: Negative for shortness of breath, cough, wheezing. Abdomen/GI: Negative for abdominal pain, nausea, vomiting, diarrhea. : Negative for dysuria, hematuria. Positive for frequency. MS/Extremity: Negative for injury and deformity, Skin: Negative for injury, rash, and discoloration, Neuro: Negative for headache, numbness and tingling. Exam: 17:09 Constitutional: This is a well developed, well nourished patient who is awake, alert, sd2 and in no acute distress. Head/Face: Normocephalic, atraumatic. Eyes: EOMI, normal conjunctiva bilaterally Chest/axilla: Normal chest wall appearance and motion. Nontender with no deformity. Cardiovascular: Regular rate and rhythm with a normal S1 and S2. No gallops, murmurs, or rubs. 2+ distal pulses. Respiratory: Lungs have equal breath sounds bilaterally, clear to auscultation and percussion. No rales, rhonchi or wheezes noted. No increased work of breathing, no retractions or nasal flaring. Abdomen/GI: Soft, non-tender, with normal bowel sounds. No guarding or rebound. No evidence of tenderness throughout. Skin: Warm, dry with normal turgor. Normal color with no rashes, no lesions, and no evidence of cellulitis. MS/ Extremity: Pulses equal, no cyanosis. Neurovascular intact. Full, normal range of motion. Psych: Awake, alert, with orientation to person, place and time. Behavior, mood, and affect are within normal limits. Vital Signs: 16:44 BP 150 / 88; Pulse 94; Resp 19; Temp 98.5(O); Pulse Ox 97% on R/A; MAP 105 mmHg; Weight tm6 122.47 kg; Height 5 ft. 10 in. ; Pain 0/10; 19:00 BP 115 / 74; Pulse 86; Resp 18; Pulse Ox 99% ; cp4 20:00 BP 134 / 90; Pulse 89; Resp 18; Pulse Ox 99% ; cp4 16:44 Body Mass Index 38.74 (122.47 kg, 177.8 cm) tm6 16:44 Pain Scale: Adult tm6 MDM: 17:09 Differential diagnosis: Hyperglycemia, medication non-compliance, DKA, HHS, sd2 dehydration, electrolyte abnormality among others. Data reviewed: vital signs, nurses notes, lab test result(s), EKG, radiologic studies. I considered the following discharge prescriptions or medication management in the emergency department Medications were administered in the Emergency Department. See MAR. Care significantly affected by the following chronic conditions: Diabetes, Hypertension. 17:12 Patient medically screened. sd2 07/20 16:58 Order name: Glucose, Ancillary Testing; Complete Time: 17:07 EDMS 07/20 17:09 Order name: CBC with Diff; Complete Time: 18:16 sd2 07/20 17:09 Order name: CMP; Complete Time: 18:38 sd2 07/20 17:09 Order name: Magnesium; Complete Time: 18:38 sd2 07/20 17:09 Order name: BETA HYDROXYBUTYRATE; Complete Time: 18:38 sd2 07/20 17:09 Order name: ABG: venous only; Complete Time: 18:00 sd2 07/20 18:09 Order name: Glucose, Ancillary Testing; Complete Time: 18:16 EDMS 07/20 18:29 Order name: Glucose, Ancillary Testing; Complete Time: 18:38 EDMS 07/20 17:09 Order name: EKG - Nurse/Tech; Complete Time: 18:27 sd2 Administered Medications: 17:30 Drug: NS 0.9% IV 1000 ml IV at 1 bolus Per protocol; 1000 mL bolus Route: IV; Rate: 1 rs5 bolus; Site: right antecubital; 20:37 Follow up: Response: No adverse reaction; IV Status: Completed infusion; IV Intake: cp4 1000ml 18:10 Drug: NS 0.9% IV 1000 ml IV at 1 bolus Per protocol; 1000 mL bolus Route: IV; Rate: 1 rs5 bolus; Site: right antecubital; 20:36 Follow up: Response: No adverse reaction; IV Status: Completed infusion; IV Intake: cp4 1000ml 18:20 Drug: Insulin Regular Human IVP 10 units IVP once {Co-Signature: fernando (Bere Aaron RN).} Route: IVP; Site: right forearm; 18:30 Not Given (Duplicate Order): insulin regular human10 units IVP once coby 18:35 Drug: Insulin Glargine Sub-Q 30 units Sub-Q once {Co-Signature: fernando (Bere Aaron RN).} Route: Sub-Q; Site: left upper abdomen; Point of Care Testing: Blood Glucose: 16:44 Blood Glucose: 408 mg/dL; tm6 Ranges: Critical Glucose Levels:Adult <50 mg/dl or >400 mg/dl <40 mg/dl or >180 mg/dl Disposition Summary: 07/20/24 18:38 Discharge Ordered Notes: Location: Home coby Problem: new coby Symptoms: have improved coby Condition: Stable coby Diagnosis - Type 2 diabetes mellitus with hyperglycemia coby Followup: coby - With: Private Physician - When: 2 - 3 days - Reason: Recheck today's complaints, Continuance of care, Re-evaluation by your physician Followup: coby - With: Anshu Herrera MD - When: 2 - 3 days - Reason: Recheck today's complaints, Re-evaluation by your physician Discharge Instructions: - Discharge Summary Sheet coby - Diabetes Mellitus and Sick Day Management coby - Hyperglycemia coby - Daily Diabetes Mellitus Record cboy - Diabetes Mellitus and Nutrition, Adult coby - Living With Diabetes coby - Diabetes Mellitus Basics coby Forms: - Medication Reconciliation Form coby - Antibiotic Education coby - Prescription Opioid Use coby - Patient Portal Instructions coby - Leadership Thank You Letter [facility] Signatures: Dispatcher [employer] Roberto Quinteros MD MD cha Dunlop, Stephanie, MD MD sd2 Coleman Hanley RN RN rs5 Ortiz Warner RN RN tm6 Melissa Maya cp4 Bere Aaron RN mb9
--- NOTE | 2024-07-20 18:39 | ER ---
Nurse's Notes [facility] Name: Reji Wallace Age: 64 yrs Sex: Male : 1960 Arrival Date: 07/20/2024 Time: 16:40 Bed 20 Private MD: Diagnosis: Type 2 diabetes mellitus with hyperglycemia Presentation: 07/20 16:44 Chief complaint: Patient states: started getting blurry vision on Thursday. Has been out tm6 of diabetes medication for 2 weeks. Today PCP took blood sugar and got readings in the 500s, sent me over here. Coronavirus screen: Vaccine status: Patient reports having had a previously documented Covid positive illness. Ebola Screen: Patient negative for fever greater than or equal to 101.5 degrees Fahrenheit, and additional compatible Ebola Virus Disease symptoms Patient denies exposure to infectious person. Patient denies travel to an Ebola-affected area in the 21 days before illness onset. No symptoms or risks identified at this time. Initial Sepsis Screen: Does the patient meet any 2 criteria? No. Patient's initial sepsis screen is negative. Does the patient have a suspected source of infection? No. Patient's initial sepsis screen is negative. Risk Assessment: Do you want to hurt yourself or someone else? Patient reports no desire to harm self or others. Onset of symptoms was July 18, 2024. 16:44 Method Of Arrival: Ambulatory tm6 16:44 Acuity: ARIA 3 tm6 Triage Assessment: 16:48 General: Appears in no apparent distress. Behavior is calm, cooperative. Pain: Denies tm6 pain. EENT: Reports blurred vision since Thursday. Neuro: Level of Consciousness is awake, alert, obeys commands, Oriented to person, place, time, situation. Cardiovascular: Patient's skin is warm and dry. Respiratory: Airway is patent Respiratory effort is even, unlabored, Respiratory pattern is regular, symmetrical. GI: No signs and/or symptoms were reported involving the gastrointestinal system. Abdomen is round. : No signs and/or symptoms were reported regarding the genitourinary system. Derm: No signs and/or symptoms reported regarding the dermatologic system. Musculoskeletal: No signs and/or symptoms reported regarding the musculoskeletal system. Historical: - Allergies: 16:48 No Known Allergies; tm6 - PMHx: 16:48 Diabetes - NIDDM; High Cholesterol; Hypertension; Prostate Cancer; overactive bladder tm6 (right knee ); - PSHx: 16:48 prostatectomy; right knee; tm6 - Immunization history:: Client reports receiving the 2nd dose of the Covid vaccine. - Infectious Disease History:: Denies. - Social history:: Smoking status: Patient denies any tobacco usage or history of. Screenin:00 [facility] ED Fall Risk Assessment (Adult) History of falling in the last 3 months, rs5 including since admission No falls in past 3 months (0 pts) Confusion or Disorientation No (0 pts) Intoxicated or Sedated No (0 pts) Impaired Gait No (0 pts) Mobility Assist Device Used No (0 pt) Altered Elimination No (0 pt) Score/Fall Risk Level 0 - 2 = Low Risk Oriented to surroundings, Maintained a safe environment. Abuse screen: Denies threats or abuse. Nutritional screening: No deficits noted. Tuberculosis screening: No symptoms or risk factors identified. Assessment: 16:55 General: Appears in no apparent distress. comfortable, Behavior is calm, cooperative. rs5 Pain: Denies pain. Neuro: Level of Consciousness is awake, alert, obeys commands, Oriented to person, place, time, situation, Reports dizziness. Cardiovascular: Patient's skin is warm and dry. Respiratory: Airway is patent Respiratory effort is even, unlabored, Respiratory pattern is regular, symmetrical. GI: Abdomen is round non-distended, Abd is soft and non tender X 4 quads. : No signs and/or symptoms were reported regarding the genitourinary system. EENT: No signs and/or symptoms were reported regarding the EENT system. Derm: Skin is intact, Skin is pink, warm \T\ dry. Musculoskeletal: Range of motion: intact in all extremities. 18:10 Reassessment: No changes from previously documented assessment. rs5 18:43 Reassessment: No changes from previously documented assessment. rs5 19:00 Reassessment: Disposition pending. Patient to complete IV fluids before discharge. cp4 Vital Signs: 16:44 BP 150 / 88; Pulse 94; Resp 19; Temp 98.5(O); Pulse Ox 97% on R/A; MAP 105 mmHg; Weight tm6 122.47 kg; Height 5 ft. 10 in. ; Pain 0/10; 19:00 BP 115 / 74; Pulse 86; Resp 18; Pulse Ox 99% ; cp4 20:00 BP 134 / 90; Pulse 89; Resp 18; Pulse Ox 99% ; cp4 16:44 Body Mass Index 38.74 (122.47 kg, 177.8 cm) tm6 16:44 Pain Scale: Adult tm6 ED Course: 16:42 Patient arrived in ED. im 16:48 Triage completed. tm6 16:48 Shefali Fairchild MD is Attending Physician. sd2 16:48 Arm band placed on right wrist. tm6 17:00 Patient has correct armband on for positive identification. Placed in gown. Bed in low rs5 position. Call light in reach. Side rails up X2. 17:00 No provider procedures requiring assistance completed. rs5 17:10 Inserted saline lock: 20 gauge in right antecubital area, using aseptic technique. rs5 Blood collected. Flushed with 10 mL NS. 17:28 Coleman Hanley, FE is Primary Nurse. rs5 18:00 Attending Physician role handed off by Shefali Fairchild MD coby 18:00 Roberto So MD is Attending Physician. coby 18:38 Anshu Herrera MD is Referral Physician. coby 20:51 intact, bleeding controlled, No redness/swelling at site. Pressure dressing applied. cp4 20:52 Provided Education on: diabetes. cp4 Administered Medications: 17:30 Drug: NS 0.9% IV 1000 ml IV at 1 bolus Per protocol; 1000 mL bolus Route: IV; Rate: 1 rs5 bolus; Site: right antecubital; 20:37 Follow up: Response: No adverse reaction; IV Status: Completed infusion; IV Intake: cp4 1000ml 18:10 Drug: NS 0.9% IV 1000 ml IV at 1 bolus Per protocol; 1000 mL bolus Route: IV; Rate: 1 rs5 bolus; Site: right antecubital; 20:36 Follow up: Response: No adverse reaction; IV Status: Completed infusion; IV Intake: cp4 1000ml 18:20 Drug: Insulin Regular Human IVP 10 units IVP once {Co-Signature: [email or web address] (Bere Aaron [facility] Lidia RN).} Route: IVP; Site: right forearm; 18:30 Not Given (Duplicate Order): insulin regular human10 units IVP once coby 18:35 Drug: Insulin Glargine Sub-Q 30 units Sub-Q once {Co-Signature: [email or web address] (Bere Aaron rs5 Lidia RN).} Route: Sub-Q; Site: left upper abdomen; Medication: 18:44 VIS not applicable for this client. rs5 Point of Care Testing: Blood Glucose: 16:44 Blood Glucose: 408 mg/dL; tm6 Ranges: Intake: 20:36 IV: 1000ml; Total: 1000ml. cp4 20:37 IV: 1000ml; Total: 2000ml. cp4 Outcome: 18:38 Discharge ordered by . coby 20:51 Discharged to home ambulatory, cp4 20:51 Condition: stable 20:51 Discharge instructions given to patient, Instructed on discharge instructions, follow up and referral plans. Demonstrated understanding of instructions, follow-up care, 20:52 Patient left the ED. cp4 Signatures: Roberto So MD MD cha Dunlop, Stephanie, MD MD sd2 Coleman Hanley, RN RN rs5 Makeda Martinez Christina cp4 Ortiz Warner RN RN tm6 Bere Aaron RN mb9
[2024-07-20 21:19] VITALS: TEMP 98.5
[2024-07-20 21:20] VITALS: O2SAT 99
[2024-07-20 21:21] VITALS: BP 134/90
== END 2024-07-20 20:52 | disposition home or self-care (01) ==
LOC: ER 16:40
DX: E11.65 Type 2 diabetes mellitus with hyperglycemia (principal); I10 Essential (primary) hypertension
CPT/HCPCS: 85025; 36415; 83735; 82947 ×3; 80053; 82010; 82805; J7030 ×2